=== PATIENT | male | born 1935 | race Caucasian/White ===

== ENCOUNTER 2016-05-07 13:00 | Outpatient (RCR) ==
--- NOTE | 2016-05-02 12:59 | RS.OPPTEV2 ---
Date of Note: 05/01/16 Visit #: 1 Date of Evaluation: 05/01/16 Payer Source: MEDICARE Surgery Performed?: No Treatment Diagnosis: Low back pain, radicular symptoms History of Condition/Mechanism of Injury:: Patient reports back pain for several months. States burning in legs began after having a colonoscopy three months ago. Prior Level of Function.....Patient was independent with: ADL's, Self Care, Caregiving, Ambulation/Mobility, Community Integration/Access Functional Limitations: ADL's, Reaching, Pushing, Pulling, Lifting, Carrying, Sitting, Standing, Bending, Squatting, Ambulation, Community Access/Integration Current Subjective/complaints:: Patient reports back pain and burning into the LE's. States right side of low back is worse. He and states he has fallen a few times in the last few months. He denies tingling or numbness into LE's. He received an injection in the back approximately 1 1/2 weeks ago, which he states helped. Sitting seems to make the pain worse. Walking uphill also increases his back pain. Bending forward while sitting seems to give him some relief. Reports he sleeps well. and patient state that the onset of increased back pain, leg burning, and falls was right after his colonscopy. States he was told the he has one leg shorter. He does not use an assistive device for ambulation. He will be seeing Dr. Armendariz in a few weeks for his back. Medical History Medical History: Hypertension, Diabetes, Arthritis Medical History Comments:: Severe kidney disease Surgical History Comments:: No surgeries Hx Home Medications: Gabapentin, Diovan, Predisone, glimepiride, protonix Patient's Goals: His goal is to get relief of LE burning and back pain. Pain Assessment - Pain Description Pain Location: right low back and LE's. Pain Description: Burning, Aching, Acute Current Pain Intensity: 2/10 Worst Pain Intensity: 6/10 Functional Outcome Measure Oswestry LBP: 38 - G Codes & Severity Modifier G Codes & Modifier: Mobility current CJ. Mobility goal CI Source of G Code score: Oswestry LBP scale Observation - Observation Inspection: Patient presents to the department ambulating independently without an assistive device. Posture: Forward Head, Rounded Shoulders, Decreased Lumbar Lordosis Comments: upper body laterally tilted to his right, right hip higher. In supine, with hips level, left LE is shorter than the right. Gait - Gait Pattern Gait Comments: Pt ambulates without an assistive device with flexed forward posture at hips with right trunk tilt. Right hip externally rotated throughout swing and stance phase. He appears to exhibit exaggerated heel strike and decreased heel-toe transition during stance phase. - ROM Lumbar Flexion: Hand reach to patellae Sidebending to Left: Reach to Mid-thigh Sidebending to Right: Reach to Lateral Joint Line Lumbar Spine ROM Limitations: Soft Tissue Tightness Comments: Lumbar extension to neutral causes increased discomfort in the low back. Lower trunk rotation to the right is WFL's. rotation to the left is more limited. - Strength Trunk Lateral Flexion: 4- Good- Trunk Rotation: 4- Good- Comments: LE strength is 4+ to 5/5 throughout. - Special Tests SLR Test: Negative Left, Negative Right Seated Dural Stretch Test: Negative Left, Negative Right SI Joint Compression: Negative SI Joint Distraction: Negative Palpation Comments:: Patient reports no specific area of tenderness throughout the lumbar spine or paraspinals. Bilateral paraspinals are tight, with moderate increased tone on the right. Demonstrates hypomobility at lumbar spine. Sensation - Sensation Comments: Reports slightly less sensitivity along right lateral thigh. Otherwise sensation is intact. Additional Comments: Additional Comments: SLR bilaterally 50-55 degrees. Gallo test + bilaterally. Right hip flexors tighter than the left. Interventions - Exercise/Activities/Manual Therapy Exercises/Activities: Patient and instructed in left sidelying passive stretch over a pillow or blanket roll to stretch right Quadratus lumborum. Manual Therapy: NA HOME EXERCISE PROGRAM: left sidelying passive stretch over a pillow or blanket roll to stretch right Quadratus lumborum. - Charges Total Direct Minutes: 55 mins Total Treatment Time: 55 mins Procedures billed for this date of service:: [facility] Assessment Assessment: Patient presents to therapy with a diagnosis of Degenerative Disc Disease and Lumbar radiculopathy. He demonstrates several postural deviations and muscle imbalances: tight hip flexors, right quadratus lumborum tighter than left, increased tone of right lumbar paraspinals. He has difficulty tolerating pronlonged walking, standing, or sitting and has had a recent history of falls. He demonstrates an actual leg length discrepancy of the left LE being shorter than the right. He will benefit from exercises to address muscle imbalance to reduce pain in the low back and should also have leg length discrepancy addressed with shoe lift for the left LE. Patient Education: Education of diagnosis, Body/Joint mechanics, Home Exercise Program, Home Safety, Activity Modification, Education of Plan of Care Rehab Potential: Good Short Term Goals Goal #1: Patient independent and compliant with basic HEP. Goal to be met by: 05/16/16 Goal #2: Radiating symptoms localized to the low back. Goal to be met by: 05/16/16 Goal #3: Pt will demonstrate minimal right trunk shift/tilt in sitting or standing. Goal to be met by: 05/16/16 Goal #4: Muscle tone along right lumbar paraspinals decreased to minimal. Goal to be met by: 05/16/16 Principal Software Engineer Goals Goal #1: Pt knows HEP and to continue exercises to maintain functional level at DC. Goal to be met by: 06/06/16 Goal #2: Score on Oswestry scale improved to less than 19% impairment. Goal to be met by: 06/06/16 Goal #3: Pt able to tolerate standing/walking as needed with minimal back pain. Goal to be met by: 06/06/16 Goal #4: Pt to amb. independently with minimal gait deviations with good safety. Goal to be met by: 06/06/16 Plan - Treatment to be Provided Procedures: Therapeutic Exercises, Therapeutic Activity, Gait Training, Neuromuscular Rehab, Manual Therapy, Patient Education Modalities: Electrical Stimulation, Ultrasound/Phonophoresis, Cryotherapy, Hot Packs - Treatment Plan Frequency: 3 X week Duration: 2 weeks ORDER # VISITS AND/OR THROUGH DATE: 06/06/16 - Treatment Code (1) Low back pain Qualifiers: Chronicity: acute Back pain laterality: right Sciatica presence: unspecified whether sciatica present Qualified Description: Acute right- sided low back pain, with sciatica presence unspecified Qualifier Code(s) : (M54.5) Low back pain (2) Lumbar radiculopathy Comments: M54.16 (3) Gait abnormality Comments: R26.9
--- NOTE | 2016-05-02 14:53 | RS.OPPTDN ---
Subjective Date of Note: 05/02/16 Visit #: 2 Date of Evaluation: 05/01/16 Payer Source: MEDICARE Treatment Diagnosis: Low back pain, radicular symptoms Current Subjective/complaints:: Reports no pain at rest,but is present with prolonged standing or walking. Pain Assessment - Pain Description Pain Location: right low back and LE's. Pain Description: Burning, Aching, Acute Current Pain Intensity: 2/10 - Treatment Modality: Electrical Stim Unattended Parameters/Method Applied: 20 mins. high volt,channel 1 @ 155 pv,channel 2 @ 175 pv. to lumbar. Patient Position: Left Sidelying - Heat/Cryotherapy Treatment: Hot Pack (concurrent with e-stim) Interventions - Exercise/Activities/Manual Therapy Exercises/Activities: Patient instructed in left sidelying passive stretch over a pillow or blanket roll to stretch right Quadratus lumborum at last session with PT.Passive stretches in supine by stretching both LE's to the L to reduce R sided lateral trunk session. Total minutes of Exercise: 20 Manual Therapy: NA Total minutes of Manual Therapy: 0 HOME EXERCISE PROGRAM: left sidelying passive stretch over a pillow or blanket roll to stretch right Quadratus lumborum. - Charges Total Direct Minutes: 20 Total Treatment Time: 40 Procedures billed for this date of service:: hp,e-stim,ex 1 Assessment: Tolerates stretches well,did sleep with pillow underneath the L side of trunk/ribs last night .He is attentive to recommendations for posture and HEP.He has decreased heel strike on the R . Patient Education: Education of diagnosis, Body/Joint mechanics, Home Exercise Program, Home Safety, Activity Modification, Education of Plan of Care Patient demonstrates compliance with HEP?: Yes Short Term Goals Goal #1: Patient independent and compliant with basic HEP. Goal to be met by: 05/16/16 Progress towards Goal:: Progressing Goal #2: Radiating symptoms localized to the low back. Goal to be met by: 05/16/16 Goal #3: Pt will demonstrate minimal right trunk shift/tilt in sitting or standing. Goal to be met by: 05/16/16 Goal #4: Muscle tone along right lumbar paraspinals decreased to minimal. Goal to be met by: 05/16/16 Customer Experience Specialist Goals Goal #1: Pt knows HEP and to continue exercises to maintain functional level at [place]. Goal to be met by: 06/06/16 Goal #2: Score on Oswestry scale improved to less than 19% impairment. Goal to be met by: 06/06/16 Goal #3: Pt able to tolerate standing/walking as needed with minimal back pain. Goal to be met by: 06/06/16 Goal #4: Pt to amb. independently with minimal gait deviations with good safety. Goal to be met by: 06/06/16 Plan PLAN OF CARE EXPIRES ON:: 06/06/16 ORDER # VISITS AND/OR THROUGH DATE: 06/06/16 PLAN: Continue Plan of Care
--- NOTE | 2016-05-08 08:17 | RS.OPPTDN ---
Subjective Date of Note: 05/07/16 Visit #: 3 Date of Evaluation: 05/01/16 Payer Source: MEDICARE Treatment Diagnosis: Low back pain, radicular symptoms Current Subjective/complaints:: Reports most of hispain today is in the R hip , instead of his back. Pain Assessment - Pain Description Pain Location: right low back and LE's. Pain Description: Burning, Aching, Acute Current Pain Intensity: 6/10 in R hip - Treatment Modality: Electrical Stim Unattended Parameters/Method Applied: 20 mins. high volt,channel 1 @ 155 pv,channel 2 @ 140 pv to lumbar/R hip. Patient Position: Left Sidelying - Heat/Cryotherapy Treatment: Hot Pack (concurrent with e-stim) Interventions - Exercise/Activities/Manual Therapy Exercises/Activities: 20 mins. in supine for SKTC,DKTC,90/90 hamstring stretches ,R piriformis stretches. Total minutes of Exercise: 20 Manual Therapy: NA Total minutes of Manual Therapy: 0 HOME EXERCISE PROGRAM: left sidelying passive stretch over a pillow or blanket roll to stretch right Quadratus lumborum. - Charges Total Direct Minutes: 20 Total Treatment Time: 40 Procedures billed for this date of service:: hp,e-stim,ex 1 Assessment: Patient reports stretch discomfort only today,no increase in low back pain.He responds well to contract-relax for the R hamstring group. Patient Education: Education of diagnosis, Body/Joint mechanics, Home Exercise Program, Home Safety, Activity Modification, Education of Plan of Care Patient demonstrates compliance with HEP?: Yes Short Term Goals Goal #1: Patient independent and compliant with basic HEP. Goal to be met by: 05/16/16 Progress towards Goal:: Progressing Goal #2: Radiating symptoms localized to the low back. Goal to be met by: 05/16/16 Goal #3: Pt will demonstrate minimal right trunk shift/tilt in sitting or standing. Goal to be met by: 05/16/16 Goal #4: Muscle tone along right lumbar paraspinals decreased to minimal. Goal to be met by: 05/16/16 Mcc Goals Goal #1: Pt knows HEP and to continue exercises to maintain functional level at DC. Goal to be met by: 06/06/16 Progress towards goal: Progressing Goal #2: Score on Oswestry scale improved to less than 19% impairment. Goal to be met by: 06/06/16 Goal #3: Pt able to tolerate standing/walking as needed with minimal back pain. Goal to be met by: 06/06/16 Goal #4: Pt to amb. independently with minimal gait deviations with good safety. Goal to be met by: 06/06/16 Plan PLAN OF CARE EXPIRES ON:: 06/06/16 ORDER # VISITS AND/OR THROUGH DATE: 06/06/16 PLAN: Continue Plan of Care
== END 2016-05-08 ==
PROVIDERS: ATTEND Orthopaedic Surgery
DX: M51.36 Other intervertebral disc degeneration, lumbar region (principal); M54.16 Radiculopathy, lumbar region

== ENCOUNTER 2016-05-16 14:00 | Outpatient (RCR) ==
--- NOTE | 2016-05-09 14:32 | RS.OPPTDN ---
Subjective Date of Note: 05/09/16 Visit #: 4 Date of Evaluation: 05/01/16 Payer Source: MEDICARE Treatment Diagnosis: Low back pain, radicular symptoms Current Subjective/complaints:: Reports no back pain at this time,but does have "hot " sensation in the R hip and lateral thigh. Pain Assessment - Pain Description Pain Location: right low back and LE's. Pain Description: Burning Current Pain Intensity: 0 in back,moderate in R hip /lateral thigh - Heat/Cryotherapy Treatment: Cryotherapy (20 mins. prior to exercises) Interventions - Exercise/Activities/Manual Therapy Exercises/Activities: 30 mins. in supine for SKTC,DKTC,90/90 hamstring stretches ,R piriformis stretches.SI muscle energy exercises of resisted hip flexion,then resisted knee extension in hooklying. Total minutes of Exercise: 30 Manual Therapy: NA Total minutes of Manual Therapy: 0 HOME EXERCISE PROGRAM: left sidelying passive stretch over a pillow or blanket roll to stretch right Quadratus lumborum. - Charges Total Direct Minutes: 30 Total Treatment Time: 50 Procedures billed for this date of service:: cp,ex2 Assessment: Patient has no reports of increased back,hip or R LE pain with stretches.or with SI muscle energy exercises.He continues to have the trunk lean to R ,with R LE externally rotated and exaggerated heel strike on the R.He actually has increased leg length discrepancy that increases after muscle energy exercises. Patient Education: Education of diagnosis, Body/Joint mechanics, Home Exercise Program, Home Safety, Activity Modification, Education of Plan of Care Patient demonstrates compliance with HEP?: Yes Short Term Goals Goal #1: Patient independent and compliant with basic HEP. Goal to be met by: 05/16/16 Progress towards Goal:: Progressing Goal #2: Radiating symptoms localized to the low back. Goal to be met by: 05/16/16 Goal #3: Pt will demonstrate minimal right trunk shift/tilt in sitting or standing. Goal to be met by: 05/16/16 (improved in sitting) Progress towards Goal:: Progressing Goal #4: Muscle tone along right lumbar paraspinals decreased to minimal. Goal to be met by: 05/16/16 Tear Down Worker Goals Goal #1: Pt knows HEP and to continue exercises to maintain functional level at [place]. Goal to be met by: 06/06/16 Progress towards goal: Progressing Goal #2: Score on Oswestry scale improved to less than 19% impairment. Goal to be met by: 06/06/16 Goal #3: Pt able to tolerate standing/walking as needed with minimal back pain. Goal to be met by: 06/06/16 Progress towards goal: Progressing Goal #4: Pt to amb. independently with minimal gait deviations with good safety. Goal to be met by: 06/06/16 Plan PLAN OF CARE EXPIRES ON:: 06/06/16 ORDER # VISITS AND/OR THROUGH DATE: 06/06/16 PLAN: Continue Plan of Care
--- NOTE | 2016-05-11 14:38 | RS.OPPTDN ---
Subjective Date of Note: 05/11/16 Visit #: 5 Date of Evaluation: 05/01/16 Payer Source: MEDICARE Treatment Diagnosis: Low back pain, radicular symptoms Current Subjective/complaints:: Patient reports the therapy is helping,does not have the " hot ,burning "sensation today in his hips or back. Pain Assessment - Pain Description Pain Location: right low back and LE's. Pain Description: Dull, Aching Current Pain Intensity: 0 - Heat/Cryotherapy Treatment: Cryotherapy (20 mins. prior to exercises) Interventions - Exercise/Activities/Manual Therapy Exercises/Activities: 25 mins. in supine for SKTC,DKTC,90/90 hamstring stretches ,R piriformis stretches.SI muscle energy exercises of resisted hip flexion,then resisted knee extension in hooklying.HEP review. Total minutes of Exercise: 25 Manual Therapy: NA Total minutes of Manual Therapy: 0 HOME EXERCISE PROGRAM: left sidelying passive stretch over a pillow or blanket roll to stretch right Quadratus lumborum. - Charges Total Direct Minutes: 25 Total Treatment Time: 45 Procedures billed for this date of service:: cp,ex 2 Assessment: Patient has less pain with standing or sitting,reports sleeping better since beginning therapy.His gait pattern presents the same as eval,but less pain for longer distances.He also reports being able drive to [facility] and back without difficulty(approx. [address] Patient Education: Education of diagnosis, Body/Joint mechanics, Home Exercise Program, Home Safety, Activity Modification, Education of Plan of Care Patient demonstrates compliance with HEP?: Yes Short Term Goals Goal #1: Patient independent and compliant with basic HEP. Goal to be met by: 05/16/16 Progress towards Goal:: Progressing Goal #2: Radiating symptoms localized to the low back. Goal to be met by: 05/16/16 Progress towards Goal:: Progressing Goal #3: Pt will demonstrate minimal right trunk shift/tilt in sitting or standing. Goal to be met by: 05/16/16 (improved in sitting) Progress towards Goal:: Progressing Goal #4: Muscle tone along right lumbar paraspinals decreased to minimal. Goal to be met by: 05/16/16 Mcc Goals Goal #1: Pt knows HEP and to continue exercises to maintain functional level at [place]. Goal to be met by: 06/06/16 Progress towards goal: Progressing Goal #2: Score on Oswestry scale improved to less than 19% impairment. Goal to be met by: 06/06/16 Progress towards goal: Progressing Goal #3: Pt able to tolerate standing/walking as needed with minimal back pain. Goal to be met by: 06/06/16 Progress towards goal: Progressing Goal #4: Pt to amb. independently with minimal gait deviations with good safety. Goal to be met by: 06/06/16 Plan PLAN OF CARE EXPIRES ON:: 06/06/16 ORDER # VISITS AND/OR THROUGH DATE: 06/06/16 PLAN: Continue Plan of Care
--- NOTE | 2016-05-16 15:17 | RS.OPPTDN ---
Subjective Date of Note: 05/16/16 Visit #: 6 Date of Evaluation: 05/01/16 Payer Source: MEDICARE Treatment Diagnosis: Low back pain, radicular symptoms Current Subjective/complaints:: Patient reports he "overdid it" on the weekend.He went Saturday to [facility] injections,feels better today.He feels the therapy is helping ,understands D/C plan today per ordes,but is to see Dr. Armendariz this Saturday,hopes he can get more therapy if appropriate. Pain Assessment - Pain Description Pain Location: right low back and LE's. Pain Description: Dull, Aching Current Pain Intensity: 0 - Treatment Modality: Electrical Stim Unattended Parameters/Method Applied: 20 mins. high volt,channel 1 @ 215 pv,channel 2 @ 225 pv to lumbar. Patient Position: Left Sidelying - Heat/Cryotherapy Treatment: Cryotherapy (concurrent with e-stim) Interventions - Exercise/Activities/Manual Therapy Exercises/Activities: 25 mins. in supine for SKTC,DKTC,90/90 hamstring stretches ,R piriformis stretches.SI muscle energy exercises of resisted hip flexion,then resisted knee extension in hooklying.HEP review. Manual Therapy: NA HOME EXERCISE PROGRAM: left sidelying passive stretch over a pillow or blanket roll to stretch right Quadratus lumborum. - Charges Total Direct Minutes: 0 Total Treatment Time: 20 Procedures billed for this date of service:: cp,e-stim Assessment: Patient 's pain level has been varied for the 6 sessions he attended ,but he has better understanding of posture/body mechanics ,and HEP for stretches and pain relief.He understands D/C plan today,but returns to see Dr. Armendariz this Saturday,agreeable to more therapy if necessary. Patient Education: Education of diagnosis, Body/Joint mechanics, Home Exercise Program, Home Safety, Activity Modification, Education of Plan of Care Patient demonstrates compliance with HEP?: Yes Short Term Goals Goal #1: Patient independent and compliant with basic HEP. Goal to be met by: 05/16/16 Progress towards Goal:: Met Goal #2: Radiating symptoms localized to the low back. Goal to be met by: 05/16/16 Progress towards Goal:: Met Goal #3: Pt will demonstrate minimal right trunk shift/tilt in sitting or standing. Goal to be met by: 05/16/16 (improved in sitting) Progress towards Goal:: Progressing Goal #4: Muscle tone along right lumbar paraspinals decreased to minimal. Goal to be met by: 05/16/16 Detention Goals Goal #1: Pt knows HEP and to continue exercises to maintain functional level at DC. Goal to be met by: 06/06/16 Progress towards goal: Met Goal #2: Score on Oswestry scale improved to less than 19% impairment. Goal to be met by: 06/06/16 (18%) Progress towards goal: Met Goal #3: Pt able to tolerate standing/walking as needed with minimal back pain. Goal to be met by: 06/06/16 Progress towards goal: Partially Met Goal #4: Pt to amb. independently with minimal gait deviations with good safety. Goal to be met by: 06/06/16 (safer,but same deviations.) Progress towards goal: Progressing Plan PLAN OF CARE EXPIRES ON:: 06/06/16 ORDER # VISITS AND/OR THROUGH DATE: 06/06/16 PLAN: Plan for Discharge
--- NOTE | 2016-06-04 10:40 | RS.OPPTDC ---
Date of Discharge: 05/16/16 Date of Evaluation: 05/01/16 Number of Visits: 6 Treatment Diagnosis: Low back pain, radicular symptoms Current Complaints/Gains: Mr. Torres feels therapy is helping. He will see Dr. Armendariz regarding his back and he is hoping that Dr. Armendariz will send him for more therapy. States he has less burning sensation in the right hip and LE. He is sleeping better and able to stand for up to 1/2 hour without increased symptoms. Functional Outcome Measure Oswestry LBP: 18 - G Codes & Severity Modifier G Codes & Modifier: Mobility goal CI. Mobility D/C CI Source of G Code score: Oswestry LBP Gait - Gait Pattern Gait Comments: Patient continues to demonstrate significant gait/postural deviations in standing and while ambulating. Interventions - Exercise/Activities/Manual Therapy Exercises/Activities: NA Manual Therapy: NA HOME EXERCISE PROGRAM: left sidelying passive stretch over a pillow or blanket roll to stretch right Quadratus lumborum. - Objective Findings Observations,measurements,etc.: Gait pattern appears to be the same as day of evaluation. Demonstrates several postural deviations. - Charges Total Direct Minutes: NA Total Treatment Time: NA Procedures billed for this date of service:: NA Assessment Assessment: Mr. Torres reports less right LE burning pain. Functionally, he is able to stand for 1/2 hour without increased symptoms. He feels therapy has been very beneficial and his is hoping Dr. Armendariz will have him continue. Short Term Goals Goal #1: Patient independent and compliant with basic HEP. Goal to be met by: 05/16/16 Progress towards Goal:: Met Goal #2: Radiating symptoms localized to the low back. Goal to be met by: 05/16/16 Progress towards Goal:: Met Goal #3: Pt will demonstrate minimal right trunk shift/tilt in sitting or standing. Goal to be met by: 05/16/16 (improved in sitting) Progress towards Goal:: Not Met Goal #4: Muscle tone along right lumbar paraspinals decreased to minimal. Goal to be met by: 05/16/16 Progress towards Goal:: Not Met Senior Care Goals Goal #1: Pt knows HEP and to continue exercises to maintain functional level at DC. Goal to be met by: 06/06/16 Progress towards goal: Met Goal #2: Score on Oswestry scale improved to less than 19% impairment. Goal to be met by: 06/06/16 (18%) Progress towards goal: Met Goal #3: Pt able to tolerate standing/walking as needed with minimal back pain. Goal to be met by: 06/06/16 Progress towards goal: Partially Met Goal #4: Pt to amb. independently with minimal gait deviations with good safety. Goal to be met by: 06/06/16 (safer,but same deviations.) Progress towards goal: Not Met Plan Comments: Plan of care complete and patient seeing back specialist next week. Will await further orders to continue therapy.
== END 2016-06-08 ==
PROVIDERS: ATTEND Orthopaedic Surgery
DX: M51.36 Other intervertebral disc degeneration, lumbar region (principal); M54.16 Radiculopathy, lumbar region

== ENCOUNTER 2016-09-13 12:17 | Outpatient (CLI) | END 2016-09-13 12:18 | disposition short-term general hospital (02) | LOC: AMBL 12:17 | PROVIDERS: ATTEND Internal Medicine | DX: M25.551 Pain in right hip (principal); M79.604 Pain in right leg; W19.XXXA Unspecified fall, initial encounter ==

== ENCOUNTER 2016-09-22 07:58 | Outpatient (CLI) | payer OTHER ==
[2016-09-22 11:41] VITALS: BMI 26.7
== END 2016-09-22 07:59 | disposition home or self-care (01) ==
LOC: AMBL 07:58
PROVIDERS: ATTEND Internal Medicine
DX: M79.89 Other specified soft tissue disorders (principal); L53.9 Erythematous condition, unspecified; M79.631 Pain in right forearm

== ENCOUNTER 2016-09-22 08:11 | Inpatient (IN) | payer OTHER ==
[2016-09-22] MEDS ORDERED: ROCEPHIN 1 GM in SODIUM CHLORIDE 50 ML IV STA (08:39)
[2016-09-22 08:58] LABS: BASOPHILS % (AUTO) 0.1 % (0.0-3.0); EOSINOPHILS % (AUTO) 0.3 % (0.0-7.0); HEMATOCRIT 36.8 % (42.0-52.0); HEMOGLOBIN 12.6 g/dl (14.0-18.0); IMMATURE GRANULOCYTE % (AUTO) 1.1 % (0.0-5.0); LYMPHOCYTES # (AUTO) 0.8 K/uL (0.60-3.4); LYMPHOCYTES % (AUTO) 7.4 (10.0-50.0); MEAN CORPUSCULAR HEMOGLOBIN 32.8 pg (27.0-31.0); MEAN CORPUSCULAR HGB CONC 34.2 (31.8-35.4); MEAN CORPUSCULAR VOLUME 95.8 fl (80.0-94.0); MONOCYTES # (AUTO) 0.4 K/uL (0.4-2.0); MONOCYTES % (AUTO) 3.5 (0-10); NEUTROPHILS # (AUTO) 9.4 K/ul (2.0-6.9); NEUTROPHILS % (AUTO) 87.6; PLATELET COUNT 202 10^3/uL (140-440); RED BLOOD COUNT 3.84 10^6/ul (4.70-6.10); WHITE BLOOD COUNT 10.76 K/ul (4.2-10.2)
--- NOTE | 2016-09-22 09:13 | DI ---
EXAM: CHEST FRONTAL VIEW HISTORY: Cough. COMPARISON: None FINDINGS: Heart size upper limit normal. Ectasia of the aorta. Chronic-appearing interstitial karina nges. Mild density in the bases more noticeable on the right. No visible pleural fluid or pneumoth orax. IMPRESSION: Mild bibasilar density, more noticeable on the right may represent atelectasis, fibrosis or mild pne umonia.
[2016-09-22 09:16] LABS: ALBUMIN 2.8 g/dL (3.4-5.0); ALBUMIN/GLOBULIN RATIO 0.85; ANION GAP 15.3; BILIRUBIN,TOTAL 0.58 mg/dL (0.00-1.20); BUN/CREATININE RATIO 21.49; CALCIUM 8.1 mg/dL (8.2-10.2); CREATININE 1.07 mg/dL (0.60-1.10); POTASSIUM 3.3 mmol/L (3.5-5.1); TOTAL PROTEIN 6.1 g/dL (5.8-8.1)
[2016-09-22] MEDS ORDERED: ROCEPHIN ONE (10:14)
--- NOTE | 2016-09-22 10:17 | ED.PDOC ---
Procedures - IV/Art Line Insertion Location: lt wrist Type of Line: Peripheral IV Invasive Line/IV Catheter Gauge: 24 Number of Attempts: 1 Blood Return Positive: Yes Invasive Line/IV Flushes Without Difficulty: Yes Conscious Sedation - Pre-op Assessment Weight: 200 lb - Medical History Past Medical History: Hypertension, Diabetes, High Lipids, Kidney Disease, Anxiety, Arthritis Other History: dementia, barretts esophagus - Physical Exam Heart Rate/Rhythm: Regular Rhythm, Regular Rate
--- NOTE | 2016-09-22 10:22 | ED.PDOC ---
General ED Provider: Dr. JAMEL RIVERA Chief Complaint: Cellulitis Stated Complaint: cellulitis Time Seen by Physician: 08:14 Mode of Arrival: Ambulance Information Source: Patient, Snf, EMT Exam Limitations: No limitations Primary Care Provider: GUILLERMINA THORPE Nursing and Triage Documentation Reviewed and Agree: Yes ( was admitted at [facility] for back pain returns for aforearm cellulitis righ) Skin Complaint Exam - Skin/Soft Tissue Complaint/Exam Onset/Duration: had and iv placed at [facility] now apperas cellulitic see photos Symptoms Are: Still present Timing: Constant Initial Severity: Moderate Current Severity: Moderate Character: Reports: Swelling, Raised, Painful Aggravating: Reports: Touch Alleviating: Reports: None Associated Signs and Symptoms: Reports: Tenderness, Red streaks. Denies: Fever , Chills, Itching, Drainage, Bruising, Joint swelling Recent Exposure to Others w/Similar Symptoms: No Skin Findings: Present: Erythema Joint Tenderness Present: No Differential Diagnoses: Cellulitis Review of Systems - Review Of Systems Constitutional: Reports: No symptoms Eyes: Reports: No symptoms Ears, Nose, Mouth, Throat: Reports: No symptoms Respiratory: Reports: No symptoms Cardiac: Reports: No symptoms GI: Reports: No symptoms : Reports: No symptoms Musculoskeletal: Reports: No symptoms Skin: Reports: Rash (see photos) Neurological: Reports: No symptoms Endocrine: Reports: No symptoms Hematologic/Lymphatic: Reports: No symptoms All Other Systems: Reviewed and Negative Past Medical History - Past Medical History Previously Healthy: Yes Endocrine: Reports: DM 2, Dyslipidemia Cardiovascular: Reports: Hypertension Respiratory: Reports: None Hematological: Reports: None Gastrointestinal: Reports: None Genitourinary: Reports: CKD Neuro/Psych: Reports: None Musculoskeletal: Reports: None 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: Skin - Surgical History General Surgical History: Reports: None, Other (throid surgery ) - Family History Family History: Reports: None - Social History Smoking Status: Unknown if ever smoked Hx Substance Use: No Alcohol Screening: None Physical Exam - Physical Exam Appearance: Ill-appearing Ill-appearing: Moderate Pain Distress: Moderate Eyes: CATHERINE, EOMI, Conjunctiva clear ENT: Ears normal, Nose normal, Oropharynx normal Respiratory: Airway patent, Breath sounds clear, Breath sounds equal, Respirations nonlabored Cardiovascular: RRR, Pulses normal, No rub, No murmur GI/: Soft, Nontender, No masses, Bowel sounds normal, No Organomegaly Musculoskeletal: Normal strength, ROM intact, No edema, No calf tenderness Skin: Warm, Dry (cellulitis right upper arm) Neurological: Sensation intact, Motor intact, Reflexes intact, Cranial nerves intact, Alert, Oriented Psychiatric: Affect appropriate, Mood appropriate Interpretation - Finish Filer Rate: Normal Rhythm: Sinus Ectopy: None Physician Notification - Case Discussed Physician Notified: pmd Time of Notification: 09:00 (saw pt and he would like pt admitted to his service ) Admit To: Inpatient Critical Care Note - Critical Care Note Total Time (mins): 0 Course - Course Hematology/Chemistry: 09/22/16 08:45 09/22/16 08:45 Orders, Labs, Meds: Lab Review 09/22/16 08:45 WBC 10.76 H RBC 3.84 L Hgb 12.6 L Hct 36.8 L MCV 95.8 H MCH 32.8 H MCHC 34.2 RDW Coeff of Quiana 13.7 Plt Count 202 Immature Gran % (Auto) 1.1 Neut % (Auto) 87.6 Lymph % (Auto) 7.4 L Metcalfe % (Auto) 3.5 Eos % (Auto) 0.3 Baso % (Auto) 0.1 Immature Gran # (Auto) 0.1 Neut # 9.4 H Lymph # 0.8 Metcalfe # 0.4 Eos # 0.0 Baso # 0.0 Sodium 142 Potassium 3.3 L Chloride 105 Carbon Dioxide 25 Anion Gap 15.3 BUN 23 H Creatinine 1.07 Estimated GFR (MDRD) 66.00 BUN/Creatinine Ratio 21.49 Glucose 123 H Lactic Acid 14.0 Calcium 8.1 L Total Bilirubin 0.58 AST 31 ALT 41 Alkaline Phosphatase 101 Total Protein 6.1 Albumin 2.8 L Globulin 3.3 Albumin/Globulin Ratio 0.85 Procalcitonin 0.11 Orders Category Date Time Status EKG-(ED ONLY) Stat CARDIO 09/22/16 08:36 Completed ED IV/MEDIPORT/POWERPORT .ONCE EMERGENCY 09/22/16 08:39 Active BLOOD CULTURE Stat LAB 09/22/16 08:45 Received CBC W/ AUTO DIFF Stat LAB 09/22/16 08:45 Completed COMPREHENSIVE METABOLIC PANEL Stat LAB 09/22/16 08:45 Completed LACTIC ACID Stat LAB 09/22/16 08:45 Completed PROCALCITONIN Stat LAB 09/22/16 08:45 Completed WOUND CULTURE Stat LAB 09/22/16 08:25 Received 0.9 % Sodium Chloride [Saline Flush] MEDS 09/22/16 08:39 Active 1 syr IVF PRN PRN Ceftriaxone Sodium [Rocephin] MEDS 09/22/16 10:14 Discontinued 1 gm .ROUTE .STK-MED ONE Ceftriaxone Sodium [Rocephin] 1 gm MEDS 09/22/16 08:39 Discontinued 0.9 % Sodium Chloride [Sodium Chloride] 50 ml IV ONCE CHEST, 1V AP ONLY Stat RADS 09/22/16 08:36 Completed Medications Generic Name Dose Route Start Last Admin Trade Name Freq PRN Reason Stop Dose Admin Sodium Chloride 1 syr 09/22/16 08:39 Saline Flush IVF PRN PRN To flush IV Discontinued Medications Generic Name Dose Route Start Last Admin Trade Name Freq PRN Reason Stop Dose Admin Ceftriaxone Sodium 1 gm/ 50 mls @ 75 mls/hr 09/22/16 08:39 Sodium Chloride IV 09/22/16 09:18 ONCE STA Vital Signs: Temp Pulse Resp BP Pulse Ox 09/22/16 08:14 98.4 F 85 20 126/75 97 Departure - Departure Time of Disposition: 10:22 Disposition: ADMITTED INPATIENT Discharge Problem: Cellulitis Instructions: Cellulitis (ED) Condition: Good Pt referred to PMD for follow-up: Yes (admitt now) Allergies/Adverse Reactions: Allergies amlodipine [From Norvasc] Adverse Reaction (Verified 09/22/16 08:54) clonidine Adverse Reaction (Verified 09/22/16 08:54) enalaprilat [From Vasotec] Adverse Reaction (Verified 09/22/16 08:54) erythromycin base [From E-Mycin] Adverse Reaction (Verified 09/22/16 08:54) Home Medications: Ambulatory Orders Calcium Carbonate/Vitamin D3 [Calcium 600 + Vit D 400 Tablet] 1 each PO DAILY Carisoprodol [Soma] 350 mg PO QID 09/22/16 Cephalexin [Keflex] 500 mg PO TID 09/22/16 Cholecalciferol (Vitamin D3) [Vitamin D] 1,000 unit PO DAILY 09/22/16 Collagenase Clostridium Hist [Santyl] 1 applic TP BID 09/22/16 Enoxaparin Sodium [Lovenox] 40 mg SQ DAILY 09/22/16 Fentanyl 12 Mcg/Hr [Duragesic 12 Mcg/Hr] 1 patch TD Q72HR 09/22/16 Gabapentin [Neurontin] 300 mg PO TID 09/22/16 Glimepiride [Amaryl] 4 mg PO DAILY 09/22/16 Hydralazine HCl 25 mg PO TID 09/22/16 Insulin Lispro [Humalog] See Protocol SUBCUT QID 09/22/16 Latanoprost [Xalatan] 1 drop OP BEDTIME 09/22/16 Levocetirizine Dihydrochloride [Xyzal] 5 mg PO DAILY 09/22/16 Lorazepam Inj [Ativan] 0.5 mg IM Q6H 09/22/16 Mupirocin [Bactroban] 1 applic TP BID 09/22/16 Nebivolol HCl [Bystolic] 10 mg PO DAILY 09/22/16 Nystatin [Nystatin Cream] 1 applic TP DAILY 09/22/16 Boon-3 Fatty Acids/Fish Oil [Fish Oil 1,000 mg Capsule] 1 each PO DAILY Oxycodone-Acetaminophe 7.5-325 [Percocet 7.5-325] 1 tab PO Q6H PRN 09/22/16 Pantoprazole Sodium [Protonix] 40 mg PO QDAC 09/22/16 Pravastatin Sodium [Pravachol] 20 mg PO BEDTIME 09/22/16 Prednisone 10 mg PO DAILYWM 09/22/16 Timolol Maleate 0.5% [Timoptic 0.5% Opth] 2 drop OP BID 09/22/16 Valsartan [Diovan] 160 mg PO DAILY 09/22/16
[2016-09-22] MEDS ORDERED: VANCOMYCIN 1 GM in SODIUM CHLORIDE 250 ML IV STA (10:31)
[2016-09-22 11:41] VITALS: BMI 26.7
[2016-09-22] MEDS: SODIUM CHLORIDE 1,000 ML IV SCH (11:51)
[2016-09-22] MEDS: ATIVAN IM PRN (12:04)
[2016-09-22] MEDS ORDERED: SOMA PO PRN (12:21)
[2016-09-22] MEDS ORDERED: PERCOCET 7.5-325 ONE ×2 (12:30→20:35)
[2016-09-22] MEDS: PERCOCET 7.5-325 PO SCH ×2 (12:33→20:41)
[2016-09-22] MEDS: SOMA PO SCH ×3 (12:33→20:41)
[2016-09-22] MEDS ORDERED: NEURONTIN PO SCH (15:00)
[2016-09-22] MEDS ORDERED: NON-FORMULARY MEDICATION (Hydralazine Hcl [Hydralazine Hcl] 25 MG) PO SCH (15:00)
[2016-09-22] MEDS: APRESOLINE PO SCH ×2 (17:26→20:40)
[2016-09-22] MEDS ORDERED: TORADOL IVP STA (18:13)
[2016-09-22] MEDS ORDERED: TORADOL IVP PRN (18:14)
[2016-09-22] MEDS ORDERED: DECADRON 4 MG/ML SDV IVP STA (18:15)
[2016-09-22] MEDS: XALATAN OP SCH (20:39)
[2016-09-22] MEDS: TIMOPTIC 0.5% OPTH OP SCH (20:39)
[2016-09-22] MEDS: PRAVACHOL PO SCH (20:40)
[2016-09-23] MEDS: SODIUM CHLORIDE 1,000 ML IV SCH ×2 (02:23→19:18)
[2016-09-23] MEDS ORDERED: PERCOCET 7.5-325 ONE (05:20)
[2016-09-23] MEDS: PERCOCET 7.5-325 PO SCH ×3 (05:22→20:03)
[2016-09-23] MEDS: HUMULIN R SUBCUT PRN ×3 (05:32→17:10)
[2016-09-23 07:24] LABS: BASOPHILS % (AUTO) 0.1 % (0.0-3.0); EOSINOPHILS % (AUTO) 0.2 % (0.0-7.0); HEMATOCRIT 32.7 % (42.0-52.0); HEMOGLOBIN 11.1 g/dl (14.0-18.0); IMMATURE GRANULOCYTE % (AUTO) 1.3 % (0.0-5.0); LYMPHOCYTES # (AUTO) 0.7 K/uL (0.60-3.4); MEAN CORPUSCULAR HEMOGLOBIN 32.6 pg (27.0-31.0); MEAN CORPUSCULAR HGB CONC 33.9 (31.8-35.4); MEAN CORPUSCULAR VOLUME 95.9 fl (80.0-94.0); MONOCYTES # (AUTO) 0.3 K/uL (0.4-2.0); MONOCYTES % (AUTO) 3.2 (0-10); NEUTROPHILS # (AUTO) 7.9 K/ul (2.0-6.9); NEUTROPHILS % (AUTO) 87.2; PLATELET COUNT 180 10^3/uL (140-440); RED BLOOD COUNT 3.41 10^6/ul (4.70-6.10); WHITE BLOOD COUNT 9.07 K/ul (4.2-10.2)
[2016-09-23 08:11] LABS: ALBUMIN 2.2 g/dL (3.4-5.0); ALBUMIN/GLOBULIN RATIO 0.76; ANION GAP 16.6; BILIRUBIN,TOTAL 0.46 mg/dL (0.00-1.20); BUN/CREATININE RATIO 18.27; CREATININE 0.93 mg/dL (0.60-1.10); POTASSIUM 3.6 mmol/L (3.5-5.1); TOTAL PROTEIN 5.1 g/dL (5.8-8.1)
[2016-09-23] MEDS: SOMA PO SCH ×3 (08:34→20:03)
[2016-09-23] MEDS: TIMOPTIC 0.5% OPTH OP SCH ×2 (08:34→20:04)
[2016-09-23] MEDS: LOVENOX SUBCUT SCH (08:35)
[2016-09-23] MEDS: NYSTATIN CREAM TP SCH (08:35)
[2016-09-23] MEDS: BYSTOLIC PO SCH (08:36)
[2016-09-23] MEDS: PREDNISONE PO SCH (08:36)
[2016-09-23] MEDS: CLARITIN PO SCH (08:36)
[2016-09-23] MEDS: APRESOLINE PO SCH ×3 (08:36→20:03)
[2016-09-23] MEDS: DIOVAN PO SCH (08:36)
[2016-09-23] MEDS ORDERED: LEVOCETIRIZINE DIHYDROCHLORIDE 5 MG PO SCH ×22 (09:00)
[2016-09-23] MEDS ORDERED: NON-FORMULARY MEDICATION (Nebivolol Hcl [Bystolic] 10 MG) PO SCH ×22 (09:00)
[2016-09-23] MEDS: VANCOMYCIN 750 MG in SODIUM CHLORIDE 250 ML IV SCH ×2 (10:17→20:04)
[2016-09-23] MEDS: ROCEPHIN 1 GM in SODIUM CHLORIDE 50 ML IV SCH (12:17)
[2016-09-23] MEDS: PRAVACHOL PO SCH (20:03)
[2016-09-23] MEDS: XALATAN OP SCH (20:04)
[2016-09-23] MEDS: ATIVAN IM PRN (20:25)
[2016-09-24] MEDS: ATIVAN IM PRN ×2 (03:02→09:15)
[2016-09-24] MEDS: PERCOCET 7.5-325 PO SCH ×3 (04:44→20:49)
[2016-09-24 05:29] LABS: EOSINOPHILS % (AUTO) 0.5 % (0.0-7.0); HEMATOCRIT 31.4 % (42.0-52.0); HEMOGLOBIN 10.7 g/dl (14.0-18.0); IMMATURE GRANULOCYTE % (AUTO) 1.9 % (0.0-5.0); LYMPHOCYTES # (AUTO) 0.8 K/uL (0.60-3.4); LYMPHOCYTES % (AUTO) 10.1 (10.0-50.0); MEAN CORPUSCULAR HEMOGLOBIN 32.4 pg (27.0-31.0); MEAN CORPUSCULAR HGB CONC 34.1 (31.8-35.4); MEAN CORPUSCULAR VOLUME 95.2 fl (80.0-94.0); MONOCYTES # (AUTO) 0.4 K/uL (0.4-2.0); MONOCYTES % (AUTO) 4.7 (0-10); NEUTROPHILS # (AUTO) 6.5 K/ul (2.0-6.9); NEUTROPHILS % (AUTO) 82.8; PLATELET COUNT 200 10^3/uL (140-440); WHITE BLOOD COUNT 7.89 K/ul (4.2-10.2)
[2016-09-24 05:55] LABS: ALBUMIN 2.3 g/dL (3.4-5.0); ALBUMIN/GLOBULIN RATIO 0.82; ANION GAP 14.1; BILIRUBIN,TOTAL 0.33 mg/dL (0.00-1.20); BUN/CREATININE RATIO 20.87; CREATININE 0.91 mg/dL (0.60-1.10); POTASSIUM 3.1 mmol/L (3.5-5.1); TOTAL PROTEIN 5.1 g/dL (5.8-8.1)
[2016-09-24] MEDS ORDERED: TORADOL IVP PRN (07:38)
[2016-09-24] MEDS ORDERED: DURAGESIC TD SCH (09:00)
[2016-09-24] MEDS: NYSTATIN CREAM TP SCH (09:00)
[2016-09-24] MEDS: LOVENOX SUBCUT SCH (09:09)
[2016-09-24] MEDS: ROCEPHIN 1 GM in SODIUM CHLORIDE 50 ML IV SCH (09:09)
[2016-09-24] MEDS: BYSTOLIC PO SCH (09:10)
[2016-09-24] MEDS: APRESOLINE PO SCH ×4 (09:11→20:48)
[2016-09-24] MEDS: DIOVAN PO SCH (09:11)
[2016-09-24] MEDS: PREDNISONE PO SCH (09:11)
[2016-09-24] MEDS: NAMENDA PO SCH ×2 (09:12→20:47)
[2016-09-24] MEDS: CLARITIN PO SCH (09:12)
[2016-09-24] MEDS: SOMA PO SCH ×4 (09:12→20:47)
[2016-09-24] MEDS: K-DUR PO SCH ×2 (09:13→20:47)
[2016-09-24] MEDS: TIMOPTIC 0.5% OPTH OP SCH ×2 (09:13→20:49)
[2016-09-24] MEDS: BACTROBAN TP SCH ×2 (09:14→20:50)
--- NOTE | 2016-09-24 09:52 | HP ---
DATE OF SERVICE: 09/22/16 REASON FOR HOSPITALIZATION: Cellulitis of the right arm HISTORY OF PRESENT ILLNESS: The patient is an 81 year old white male hospitalized with upper facial abrasion with redness of the right arm near the elbow area radially. The patient has been treated with Keflex in the [facility]odial for practically 12 to 24 hours. Inflammation seems to have worsened so the patient was brought to the emergency room by family. The patient is resident of the [facility]. REVIEW OF SYSTEMS: CONSTITUTIONAL: No night sweats. Fatigue and tired. No fever or chills. HEENT: Eyes: No visual changes. No eye pain. No eye discharge. ENT: No runny nose. No epistaxis. No sinus pain. No sore throat. No odynophagia. No ear pain. No congestion. RESPIRATORY: No cough, no congestion. No hemoptysis. CARDIOVASCULAR: No angina symptoms. No CHF symptoms. No atypical chest pain for CAD. No palpitations. No shortness of breath. No PND. No Orthopnea. GASTROINTESTINAL: No abdominal pain. No nausea or vomiting. No diarrhea or constipation. No hematemesis. No hematochezia. GENITOURINARY: No urgency. No frequency. No dysuria. No hematuria. No obstructive symptoms. No discharge. No pain. No significant abnormal bleeding. MUSCULOSKELETAL: No musculoskeletal pain. No joint swelling. No arthritis. Generalized aches with spinal cord compression with severe DJD of the lumbar spine. Mild pain in the right upper extremity. NEUROLOGICAL: No headache. No neck pain. No syncope. No seizures. No dizziness. Confused at times. Dementia. No focal neurological signs or symptoms. PSYCHIATRIC: Not anxious. No depression. No suicidal thoughts. No homicidal thoughts. SKIN: No rash. No lesions. No wounds. ENDOCRINE: No unexplained weight loss. No weight gain. HEMATOLOGIC/LYMPHATIC: No anemia. No purpura. No petechiae. No prolonged or excessive bleeding. No palpable lymph nodes. PERSONAL/FAMILY/SOCIAL HISTORY: The patient is and the is also handicap with multiple medical problems and unable to take care of him. The patient was sent from [facility] to [place] after his frequent falls and worsening of Dementia along with DJD spine with radiculopathy with urinary incontinence and dementia. The patient needs help for all activity of daily living. He is non- smoker and no alcohol abuse. Daughters and a Son are the main participants in patient's care. When I examined the patient in the emergency room two daughters and they agreed for the patient to be taken care of at [facility]. 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 Lindsay. 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 Hyperlipidemia Hypertension Hypothyroidism Type II diabetes without complication Urinary incontinence could be from radiculopathy or could be from dementia and BPH Colonoscopy EGD Eye surgery MEDICATIONS: Soma 350mg four times a day Keflex 500mg three times a day Lovenox 40mg SUBCUT daily Fentanyl 12mcg per hour patch every 72 hour Neurontin 300mg three times a day Amaryl 4mg PO daily Hydralazine 25mg PO three times a day Humalog to cover per sliding scale Eye drops Ativan 0.5mg IM Q 6 hours Bactroban three times a day Bystolic 10mg PO daily Nystatin cream on the skin area Percocet 7.5-325mg Q 6 hour PRN for pain Protonix 40mg QAM Pravastatin 40mg PO at bedtime Prednisone 10mg PO daily Diovan 160mg PO daily ALLERGIES: Amlodipine Clonidine Vasotec Erythromycin PHYSICAL EXAMINATION: GENERAL: The patient is sleepy and response to name. VITAL SIGNS: Temperature 98.1, pulse 90, respiratory rate 16, blood pressure 126/75 and pulse ox 97% HEENT: Head normocephalic, atraumatic. Eyes: Extraocular muscles are intact. Pupils are equal, round and reactive to light and accommodation. Ears: No lesions. Nose appeared normal. Throat: No exudate or erythema. NECK: Supple. No JVP, no carotid bruit. No lymphadenopathy or thyromegaly. LUNGS:Decreased breath sounds but clear to auscultation. Percussion note normal. Chest symmetrical. HEART: S1, S2, no S3. No murmurs. No cyanosis or clubbing. No ascites. Pulses: Dorsalis pedis and posterior tibial pulses +1 to +2 both sides. ABDOMEN: Soft. Nontender. Bowel sounds active. No CVA tenderness. No mass felt. EXTREMITIES: No edema. Full range of motion of all extremities, equal. Relatively superficial grade II ulcer. Multiple small ulcerations superficial noted especially in the right upper extremity. There is superficial ulcer medially oblong 1.5inch by an inch superficial ulcer with some drainage, mild drainage surrounding areas, streaks noted. Tissues is lax and edematous in the right upper extremity. NEUROLOGIC: No focal deficit. Cranial nerves II through XII are grossly intact. No headache, no double vision or headache. SKIN: Not dry. Intact. Turgor - normal. LYMPHATIC: No palpable lymph nodes/no lymphedema. MUSCULOSKELETAL: Normal joints with no swelling. Muscle tone is normal. LABS: Hgb 12.6, hct 36, WBC 10,700 normal differential, creatinine 1, BUN 23, potassium 3.3. ASSESSMENT: 1. Mild Cellulitis with right upper extremity small superficial ulcer 2. Dementia with Alzheimer's disease 3. Multiple falls with severe DJD of the L spine with possibility of cord compression 4. Hypertension 5. Dyslipidemia 6. Anemia 7. Agitation with behavioral disorder with dementia 8. Diabetes Mellitus type II PLAN: 1. Admit the patient with Right upper extremity elevation 2. Clean the ulcer with hydroperoxide and keep it open to air 3. Rocephin 1 gram IV Q 24 hours 4. Vancomycin 1gram Q 12 hour 5. Daily CBC and CMP 6. T4 and TSH 7. Lipid profile 8. A1c 9. Discontinue Amaryl 10.Chest x-ray and EKG CONDITION: Stable, case discussed with the family and discussed the care plan ADDENDUM: Some of the records from [facility] especially Dr. Turner notes that are available examine. The patient was seen by Dr. Armendariz and followed by Dr. Leger. Dr. Armendariz felt that the surgery was necessary and the symptoms were coming from possibly cord compression by Dr. Turner thought the cord compression was multifactorial at some of component of dementia and inactivity. The overall condition of the patient, the family along the physician's have decided not have the patient go through any surgery and treat conservatively. Primary care physician was Concetta Olvera. TIME SPENT: More than 70 minutes. [facility]ITALThere[facility]
--- NOTE | 2016-09-24 10:07 | PCM.PROG ---
Attending Provider: ATTENDING PROVIDER: Dr. GUILLERMINA THORPE DATE OF SERVICE: 09/24/16 SUBJECTIVE: This 81 year old WHITE/ M was hospitalized 09/22/16. The patient is seen with Leann, Nurse Practitioner. The patient is alert, lying in bed in some pain. REVIEW OF SYSTEMS: CONSTITUTIONAL: No night sweats. No fatigue, malaise, lethargy. No fever or chills. HEENT: Eyes: No visual changes. No eye pain. No eye discharge. ENT: No runny nose. No epistaxis. No sinus pain. No odynophagia. No congestion. RESPIRATORY: No cough, no congestion. No hemoptysis. CARDIOVASCULAR: No angina symptoms. No CHF symptoms. No atypical chest pain for CAD. No palpitations. No shortness of breath. GASTROINTESTINAL: No abdominal pain. No nausea or vomiting. No diarrhea or constipation. No hematemesis. No hematochezia. GENITOURINARY: No urgency. No frequency. No dysuria. No hematuria. No obstructive symptoms. No discharge. No pain. No significant abnormal bleeding. MUSCULOSKELETAL: The patient has some pain. NEUROLOGICAL: Awake, alert. No headache. No neck pain. No syncope. No seizures. No dizziness. PSYCHIATRIC: Not anxious. No depression. No suicidal thoughts. No homicidal thoughts. SKIN: Redness to right elbow. Wound left heel. ENDOCRINE: No unexplained weight loss. No weight gain. HEMATOLOGIC/LYMPHATIC: No anemia. No purpura. No petechiae. No prolonged or excessive bleeding. No palpable lymph nodes. PHYSICAL EXAMINATION: GENERAL: The patient is awake, alert lying in bed in some pain. VITAL SIGNS: Temperature 98.3 F, Pulse 73, Respiratory Rate 20, BP 164/81, Pulse Ox 92% HEENT: Head normocephalic, atraumatic. Eyes: Extraocular muscles are intact. Pupils are equal, round and reactive to light and accommodation. Ears: No lesions. Nose appeared normal. Throat: No exudate or erythema. NECK: Supple. No JVD, no carotid bruit. No lymphadenopathy or thyromegaly. LUNGS: Clear; equally diminished breath sounds. Percussion note normal. Chest symmetrical. HEART: S1, S2, no S3. No murmurs. No cyanosis or clubbing. No ascites. Pulses: Dorsalis pedis and posterior tibial pulses +1 to +2 both sides. ABDOMEN: Soft. Non-tender. Bowel sounds active. No CVA tenderness. No mass felt. EXTREMITIES: No edema. Full range of motion of all extremities, equal. NEUROLOGIC: No focal deficit. Cranial nerves II through XII are grossly intact. No headache, no double vision or headache. SKIN: Improved erythema inner right elbow, no drainage. Stage 2 decubitus left heel. LYMPHATIC: No palpable lymph nodes/no lymphedema. MUSCULOSKELETAL: Normal joints with no swelling. Muscle tone is normal. LAB REVIEW: 09/24/16 05:00 09/24/16 05:00 09/24/16 05:00: WBC 7.89, RBC 3.30 L, Hgb 10.7 L, Hct 31.4 L, MCV 95.2 H, MCH 32.4 H, MCHC 34.1, RDW Coeff of Quiana 13.3, Plt Count 200, Immature Gran % (Auto) 1.9, Neut % (Auto) 82.8, Lymph % (Auto) 10.1, [place] % (Auto) 4.7, Eos % (Auto) 0.5, Baso % (Auto) 0.0, Immature Gran # (Auto) 0.2, Neut # 6.5, Lymph # 0.8, [place] # 0.4, Eos # 0.0, Baso # 0.0, Sodium 141, Potassium 3.1 L, Chloride 108 H, Carbon Dioxide 22 L, Anion Gap 14.1, BUN 19 H, Creatinine 0.91, Estimated GFR ( MDRD) 80.00, BUN/Creatinine Ratio 20.87, Glucose 97, Calcium 8.0 L, Total Bilirubin 0.33, AST 39 H, ALT 42, Alkaline Phosphatase 79, Total Protein 5.1 L, Albumin 2.3 L, Globulin 2.8, Albumin/Globulin Ratio 0.82 09/23/16 07:15: Sodium 139, Potassium 3.6, Chloride 105, Carbon Dioxide 21 L, Anion Gap 16.6, BUN 17, Creatinine 0.93, Estimated GFR (MDRD) 78.00, BUN/ Creatinine Ratio 18.27, Glucose 117 H, Calcium 8.0 L, Total Bilirubin 0.46, AST 29, ALT 33, Alkaline Phosphatase 80, Total Protein 5.1 L, Albumin 2.2 L, Globulin 2.9, Albumin/Globulin Ratio 0.76, Triglycerides 149, Cholesterol 139, LDL Cholesterol, Calc 74, VLDL Cholesterol 30, HDL Cholesterol 35, Cholesterol/ HDL Ratio 4.0 L, TSH 0.589 ASSESSMENT: 1. Positive MRSA, right elbow cellulitis 2. Decubitus left heel. 3. Dementia. 4. Hypokalemia. PLAN: 1. Apply Bactroban to right elbow 2. Up in chair as tolerated 3. Potassium 20 b.i.d. Plan and coordination of the patient's care discussed in the presence of Diabetes Manager and nurse. CONDITION: STABLE SCRIBED BY: BEULAH ELLIOTT Tray Checker scribed while in presence of service performed by Dr. GUILLERMINA THORPE/LEANN SABILLON APRN on 09/24/16 ([id number])
[2016-09-24] MEDS: VANCOMYCIN 750 MG in SODIUM CHLORIDE 250 ML IV SCH ×2 (10:27→20:44)
--- NOTE | 2016-09-24 11:14 | PN ---
DATE OF SERVICE: 09/23/16 SUBJECTIVE: The patient is an 81 year old white male hospitalized with right arm cellulitis , small abrasion. The patient's condition has improved remarkably. Practically the skin has been normal throughout the right upper limb. No evidence of any infection or cellulitis, localized ulcer is very shallow. The patient is feeling better and more alert. REVIEW OF SYSTEMS: CONSTITUTIONAL: No night sweats. No fatigue, malaise, lethargy. No fever or chills. HEENT: Eyes: No visual changes. No eye pain. No eye discharge. ENT: No runny nose. No epistaxis. No sinus pain. No sore throat. No odynophagia. No congestion. RESPIRATORY: No cough, no congestion. No hemoptysis. CARDIOVASCULAR: No angina symptoms. No CHF symptoms. No atypical chest pain for CAD. No palpitations. No shortness of breath. GASTROINTESTINAL: No abdominal pain. No nausea or vomiting. No diarrhea or constipation. No hematemesis. No hematochezia. GENITOURINARY: No urgency. No frequency. No dysuria. No hematuria. No obstructive symptoms. No discharge. No pain. No significant abnormal bleeding. MUSCULOSKELETAL: No musculoskeletal pain; no joint swelling. Back pain. NEUROLOGICAL: No headache. No neck pain. No syncope. No seizures. No dizziness. Confusion at time. PSYCHIATRIC: Not anxious. No depression. No suicidal thoughts. No homicidal thoughts. SKIN: No rash. No lesions. No wounds. ENDOCRINE: No unexplained weight loss. No weight gain. HEMATOLOGIC/LYMPHATIC: No anemia. No purpura. No petechiae. No prolonged or excessive bleeding. No palpable lymph nodes. PHYSICAL EXAMINATION: GENERAL: The patient is confused but alert. VITAL SIGNS: Temperature 98.1, pulse 77, respiratory rate 20, blood pressure 133/83 and pulse ox 98%. HEENT: Head normocephalic, atraumatic. Eyes: Extraocular muscles are intact. Pupils are equal, round and reactive to light and accommodation. Ears: No lesions. Nose appeared normal. Throat: No exudate or erythema. NECK: Supple. No JVD, no carotid bruit. No lymphadenopathy or thyromegaly. LUNGS: Decreased breath sounds but clear to auscultation. Percussion note normal. Chest symmetrical. HEART: S1, S2, no S3. No murmurs. No cyanosis or clubbing. No ascites. Pulses: Dorsalis pedis and posterior tibial pulses +1 to +2 both sides. ABDOMEN: Soft. Nontender. Bowel sounds active. No CVA tenderness. No mass felt. EXTREMITIES: No edema. Full range of motion of all extremities, equal. NEUROLOGIC: No focal deficit. Cranial nerves II through XII are grossly intact. No headache, no double vision or headache. SKIN: Not dry. Intact. Turgor - normal. LYMPHATIC: No palpable lymph nodes/no lymphedema. MUSCULOSKELETAL: Normal joints with no swelling. Muscle tone is normal. LABS: Hgb 12.6, hct 36, WBC 10,700 normal differential, creatinine 1, BUN 23, potassium 3.6 ASSESSMENT: 1. Cellulitis, right upper extremity resolved with mild abrasion noted. No redness practically normal looking skin 2. Decubitus on left heel, resolving 3. Dementia 4. Severe DJD of L spine 5. Dyslipidemia 6. Diabetes mellitus PLAN: 1. Continue Vancomycin 2. Rocephin 3. The patient's family in the room. The patient is confused at present time likely with Dementia. 4. Will start the patient on Aricept and on Namenda. CONDITION: Stable TIME SPENT: More than 30 minutes. Plan and coordination of the patient's care discussed in the presence of nurse. SUZED
[2016-09-24] MEDS ORDERED: CITRATE OF MAGNESIA PO STA ×2 (12:24→12:37)
[2016-09-24] MEDS: SODIUM CHLORIDE 1,000 ML IV SCH ×2 (12:36→15:55)
[2016-09-24] MEDS: NEURONTIN PO SCH ×3 (15:44→20:48)
[2016-09-24] MEDS: ATIVAN IM SCH (15:45)
[2016-09-24] MEDS ORDERED: ATIVAN IM SCH (16:00)
[2016-09-24] MEDS: TORADOL IVP PRN (16:51)
[2016-09-24] MEDS: HUMULIN R SUBCUT PRN ×2 (18:44→20:46)
[2016-09-24] MEDS: XALATAN OP SCH (20:45)
[2016-09-24] MEDS: PRAVACHOL PO SCH (20:48)
[2016-09-25 05:40] LABS: BASOPHILS % (AUTO) 0.1 % (0.0-3.0); EOSINOPHILS # (AUTO) 0.1 K/ul (0.0-0.7); EOSINOPHILS % (AUTO) 0.6 % (0.0-7.0); HEMOGLOBIN 11.2 g/dl (14.0-18.0); IMMATURE GRANULOCYTE % (AUTO) 1.6 % (0.0-5.0); LYMPHOCYTES % (AUTO) 11.5 (10.0-50.0); MEAN CORPUSCULAR HGB CONC 33.9 (31.8-35.4); MEAN CORPUSCULAR VOLUME 94.3 fl (80.0-94.0); MONOCYTES # (AUTO) 0.5 K/uL (0.4-2.0); MONOCYTES % (AUTO) 5.5 (0-10); NEUTROPHILS # (AUTO) 7.2 K/ul (2.0-6.9); NEUTROPHILS % (AUTO) 80.7; PLATELET COUNT 232 10^3/uL (140-440); WHITE BLOOD COUNT 8.89 K/ul (4.2-10.2)
[2016-09-25 05:58] LABS: ALBUMIN 2.4 g/dL (3.4-5.0); ALBUMIN/GLOBULIN RATIO 0.77; ANION GAP 17.2; BILIRUBIN,TOTAL 0.37 mg/dL (0.00-1.20); BUN/CREATININE RATIO 20.51; CALCIUM 8.2 mg/dL (8.2-10.2); CREATININE 0.78 mg/dL (0.60-1.10); POTASSIUM 4.2 mmol/L (3.5-5.1); TOTAL PROTEIN 5.5 g/dL (5.8-8.1)
[2016-09-25] MEDS: PERCOCET 7.5-325 PO SCH ×3 (05:59→21:09)
[2016-09-25] MEDS: SODIUM CHLORIDE 1,000 ML IV SCH (05:59)
[2016-09-25] MEDS ORDERED: ATIVAN ONE (08:01)
[2016-09-25] MEDS ORDERED: LASIX IVP STA (08:41)
[2016-09-25] MEDS ORDERED: DURAGESIC TD SCH (09:00)
[2016-09-25] MEDS: TORADOL IVP PRN (09:16)
[2016-09-25] MEDS: TIMOPTIC 0.5% OPTH OP SCH ×2 (09:16→21:10)
[2016-09-25] MEDS: ATIVAN IM SCH (09:17)
[2016-09-25] MEDS: NAMENDA PO SCH ×2 (09:17→21:09)
[2016-09-25] MEDS: APRESOLINE PO SCH ×3 (09:18→21:09)
[2016-09-25] MEDS: ROCEPHIN 1 GM in SODIUM CHLORIDE 50 ML IV SCH (09:18)
[2016-09-25] MEDS: DIOVAN PO SCH (09:18)
[2016-09-25] MEDS: NEURONTIN PO SCH ×3 (09:18→21:09)
[2016-09-25] MEDS: PREDNISONE PO SCH (09:18)
[2016-09-25] MEDS: BYSTOLIC PO SCH (09:18)
[2016-09-25] MEDS: CLARITIN PO SCH (09:18)
[2016-09-25] MEDS: BACTROBAN TP SCH ×2 (09:19→21:23)
[2016-09-25] MEDS: LOVENOX SUBCUT SCH (09:19)
[2016-09-25] MEDS: SOMA PO SCH ×3 (09:20→21:08)
[2016-09-25] MEDS: NYSTATIN CREAM TP SCH (09:20)
[2016-09-25] MEDS: COLACE PO SCH ×2 (09:22→21:27)
--- NOTE | 2016-09-25 09:31 | PCM.PROG ---
Attending Provider: ATTENDING PROVIDER: Dr. GUILLERMINA THORPE DATE OF SERVICE: 09/25/16 SUBJECTIVE: This 81 year old WHITE/ M was hospitalized 09/22/16. The patient is seen with Leann, Nurse Practitioner. The patient is lying in bed, had a restless night and is not eating much. REVIEW OF SYSTEMS: CONSTITUTIONAL: No night sweats. No fatigue, malaise, lethargy. No fever or chills. HEENT: Eyes: No visual changes. No eye pain. No eye discharge. ENT: No runny nose. No epistaxis. No sinus pain. No odynophagia. No congestion. RESPIRATORY: No cough, no congestion. No hemoptysis. CARDIOVASCULAR: No angina symptoms. No CHF symptoms. No atypical chest pain for CAD. No palpitations. No shortness of breath. GASTROINTESTINAL: No abdominal pain. No nausea or vomiting. No diarrhea or constipation. No hematemesis. No hematochezia. GENITOURINARY: No urgency. No frequency. No dysuria. No hematuria. No obstructive symptoms. No discharge. No pain. No significant abnormal bleeding. MUSCULOSKELETAL: Right arm swelling. NEUROLOGICAL: Alert with confusion. No headache. No neck pain. No syncope. No seizures. No dizziness. PSYCHIATRIC: Not anxious. No depression. No suicidal thoughts. No homicidal thoughts. SKIN: Erythema from right elbow to wrist. ENDOCRINE: No unexplained weight loss. No weight gain. HEMATOLOGIC/LYMPHATIC: No anemia. No purpura. No petechiae. No prolonged or excessive bleeding. No palpable lymph nodes. PHYSICAL EXAMINATION: GENERAL: The patient is awake, alert and oriented, lying/sitting in bed in no distress. VITAL SIGNS: Temperature 98.2 F, Pulse 77, Respiratory Rate 19, BP 152/70, Pulse Ox 100% HEENT: Head normocephalic, atraumatic. Eyes: Extraocular muscles are intact. Pupils are equal, round and reactive to light and accommodation. Ears: No lesions. Nose appeared normal. Throat: No exudate or erythema. NECK: Supple. No JVD, no carotid bruit. No lymphadenopathy or thyromegaly. LUNGS: Diminished breath sounds bilaterally. Clear to auscultation. Percussion note normal. Chest symmetrical. HEART: S1, S2, no S3. No murmurs. No cyanosis or clubbing. No ascites. Pulses: Dorsalis pedis and posterior tibial pulses +1 to +2 both sides. ABDOMEN: Soft. Non-tender. Bowel sounds active. No CVA tenderness. No mass felt. EXTREMITIES: No pedal edema. Full range of motion of all extremities, equal. The right arm has +1 pitting edema from elbow to wrist, with increased erythema , no drainage NEUROLOGIC: Alert but confused. No focal deficit. Cranial nerves II through XII are grossly intact. No headache, no double vision or headache. SKIN: +1 pitting edema of right elbow to wrist with increasing erythema. LYMPHATIC: No palpable lymph nodes/no lymphedema. MUSCULOSKELETAL: Normal joints with no swelling. Muscle tone is normal. LAB REVIEW: 09/25/16 05:37 09/25/16 05:37 09/25/16 05:37: WBC 8.89, RBC 3.50 L, Hgb 11.2 L, Hct 33.0 L, MCV 94.3 H, MCH 32.0 H, MCHC 33.9, RDW Coeff of Quiana 13.6, Plt Count 232, Immature Gran % (Auto) 1.6, Neut % (Auto) 80.7, Lymph % (Auto) 11.5, [place] % (Auto) 5.5, Eos % (Auto) 0.6, Baso % (Auto) 0.1, Immature Gran # (Auto) 0.1, Neut # 7.2 H, Lymph # 1.0, [place] # 0.5, Eos # 0.1, Baso # 0.0, Sodium 143, Potassium 4.2, Chloride 112 H, Carbon Dioxide 18 L, Anion Gap 17.2, BUN 16, Creatinine 0.78, Estimated GFR ( MDRD) 96.00, BUN/Creatinine Ratio 20.51, Glucose 81 L, Calcium 8.2, Total Bilirubin 0.37, AST 49 H, ALT 52, Alkaline Phosphatase 85, Total Protein 5.5 L, Albumin 2.4 L, Globulin 3.1, Albumin/Globulin Ratio 0.77 ASSESSMENT: 1. Positive MRSA, right elbow cellulitis 2. Decubitus left heel 3. Dementia with behavioral disturbances 4. Hypokalemia. resolved PLAN: 1. Lasix 20 MG IV push. 2. Will have the patient up to chair as he tolerates. 3. Keep the patient from lying on the right arm. 4. Continue IV antibiotics. 5. Culture showed sensitivity to Vancomycin. Plan and coordination of the patient's care discussed in the presence of Application Counselor and nurse. CONDITION: Stable SCRIBED BY: Reid NGist scribed while in presence of service performed by Dr. GUILLERMINA THORPE/LEANN SABILLON APRN on 09/25/16 ([id number])
[2016-09-25] MEDS: VANCOMYCIN 750 MG in SODIUM CHLORIDE 250 ML IV SCH ×2 (10:33→21:10)
--- NOTE | 2016-09-25 11:08 | PN ---
DATE OF SERVICE: 09/24/16 SUBJECTIVE: The patient was seen with Nurse Practitioner. The patient is an 81 year old white male hospitalized with right arm cellulitis. The patient's cellulitis is localized almost resolved with no red streaks. REVIEW OF SYSTEMS: CONSTITUTIONAL: No night sweats. No fatigue, malaise, lethargy. No fever or chills. HEENT: Eyes: No visual changes. No eye pain. No eye discharge. ENT: No runny nose. No epistaxis. No sinus pain. No sore throat. No odynophagia. No congestion. RESPIRATORY: No cough, no congestion. No hemoptysis. CARDIOVASCULAR: No angina symptoms. No CHF symptoms. No atypical chest pain for CAD. No palpitations. No shortness of breath. GASTROINTESTINAL: No abdominal pain. No nausea or vomiting. No diarrhea or constipation. No hematemesis. No hematochezia. GENITOURINARY: No urgency. No frequency. No dysuria. No hematuria. No obstructive symptoms. No discharge. No pain. No significant abnormal bleeding. MUSCULOSKELETAL: No musculoskeletal pain; no joint swelling. Back pain change in mill operator. NEUROLOGICAL: No headache. No neck pain. No syncope. No seizures. No dizziness. Confused at times PSYCHIATRIC: Not anxious. No depression. No suicidal thoughts. No homicidal thoughts. SKIN: No rash. No lesions. No wounds. ENDOCRINE: No unexplained weight loss. No weight gain. HEMATOLOGIC/LYMPHATIC: No anemia. No purpura. No petechiae. No prolonged or excessive bleeding. No palpable lymph nodes. PHYSICAL EXAMINATION: GENERAL: The patient is confused but oriented to person. VITAL SIGNS: Temperature 98, pulse 70, respiratory rate 20, blood pressure 160 /80 and pulse ox 92%. HEENT: Head normocephalic, atraumatic. Eyes: Extraocular muscles are intact. Pupils are equal, round and reactive to light and accommodation. Ears: No lesions. Nose appeared normal. Throat: No exudate or erythema. NECK: Supple. No JVD, no carotid bruit. No lymphadenopathy or thyromegaly. LUNGS: Decreased breath sounds but clear to auscultation. Percussion note normal. Chest symmetrical. HEART: S1, S2, no S3. No murmurs. No cyanosis or clubbing. No ascites. Pulses: Dorsalis pedis and posterior tibial pulses +1 to +2 both sides. ABDOMEN: Soft. Nontender. Bowel sounds active. No CVA tenderness. No mass felt. EXTREMITIES: No edema. Full range of motion of all extremities, equal. Right arm has abrasion with localized swelling with some induration on the lower part of the medial aspect of the right arm near the elbow. No red streaks. NEUROLOGIC: No focal deficit. Cranial nerves II through XII are grossly intact. No headache, no double vision or headache. SKIN: Not dry. Intact. Turgor - normal. LYMPHATIC: No palpable lymph nodes/no lymphedema. MUSCULOSKELETAL: Normal joints with no swelling. Muscle tone is normal. LABS: Hgb 10.7, hct 31, WBC 7,800 normal differential, creatinine 0.9, BUN 19, potassium 3.1. ASSESSMENT: 1. Cellulitis, seems to be resolving PLAN: 1. Continue IV antibiotics 2. Kidney functions are stable improving 3. Continue all the medications 4. Will give 20meq Potassium twice a day for Hypokalemia. CONDITION: Stable. TIME SPENT: More than 30 minutes. Plan and coordination of the patient's care discussed in the presence of nurse. SEBLE
[2016-09-25] MEDS: HUMULIN R SUBCUT PRN ×2 (18:34→21:10)
[2016-09-25] MEDS: PRAVACHOL PO SCH (21:09)
[2016-09-25] MEDS: XALATAN OP SCH (21:10)
[2016-09-26] MEDS: SODIUM CHLORIDE 1,000 ML IV SCH ×2 (00:57→09:30)
[2016-09-26 04:47] LABS: BASOPHILS % (AUTO) 0.2 % (0.0-3.0); EOSINOPHILS % (AUTO) 0.7 % (0.0-7.0); HEMOGLOBIN 10.9 g/dl (14.0-18.0); IMMATURE GRANULOCYTE % (AUTO) 2.2 % (0.0-5.0); LYMPHOCYTES # (AUTO) 0.9 K/uL (0.60-3.4); MEAN CORPUSCULAR HEMOGLOBIN 32.2 pg (27.0-31.0); MEAN CORPUSCULAR HGB CONC 34.1 (31.8-35.4); MEAN CORPUSCULAR VOLUME 94.4 fl (80.0-94.0); MONOCYTES # (AUTO) 0.4 K/uL (0.4-2.0); MONOCYTES % (AUTO) 7.6 (0-10); NEUTROPHILS # (AUTO) 4.1 K/ul (2.0-6.9); NEUTROPHILS % (AUTO) 73.3; PLATELET COUNT 227 10^3/uL (140-440); RED BLOOD COUNT 3.39 10^6/ul (4.70-6.10); WHITE BLOOD COUNT 5.56 K/ul (4.2-10.2)
[2016-09-26 05:05] LABS: POTASSIUM 3.7 mmol/L (3.5-5.1)
[2016-09-26] MEDS: PERCOCET 7.5-325 PO SCH ×2 (05:05→13:26)
[2016-09-26 05:06] LABS: ALBUMIN 2.3 g/dL (3.4-5.0); ALBUMIN/GLOBULIN RATIO 0.85; ANION GAP 14.7; BILIRUBIN,TOTAL 0.36 mg/dL (0.00-1.20); BUN/CREATININE RATIO 17.33; CREATININE 0.75 mg/dL (0.60-1.10)
--- NOTE | 2016-09-26 08:17 | PCM.PROG ---
Attending Provider: ATTENDING PROVIDER: Dr. GUILLERMINA THORPE DATE OF SERVICE: 09/26/16 SUBJECTIVE: This 81 year old WHITE/ M was hospitalized 09/22/16. The patient was hospitalized with cellulitis of right arm. Condition has improved and is a lot better. Superficial ulcer has healed up with no surrounding redness. Right upper edema has practically resolved. The patient is more alert, talkative and is feeling a lot better. The daughter is present in the room. REVIEW OF SYSTEMS: CONSTITUTIONAL: No night sweats. No fatigue, malaise, lethargy. No fever or chills. HEENT: Eyes: No visual changes. No eye pain. No eye discharge. ENT: No runny nose. No epistaxis. No sinus pain. No odynophagia. No congestion. RESPIRATORY: No cough, no congestion. No hemoptysis. CARDIOVASCULAR: No angina symptoms. No CHF symptoms. No atypical chest pain for CAD. No palpitations. No shortness of breath. GASTROINTESTINAL: No abdominal pain. No nausea or vomiting. No diarrhea or constipation. No hematemesis. No hematochezia. GENITOURINARY: No urgency. No frequency. No dysuria. No hematuria. No obstructive symptoms. No discharge. No pain. No significant abnormal bleeding. MUSCULOSKELETAL: No musculoskeletal pain; no joint swelling. NEUROLOGICAL: Awake, alert, oriented to time, place and person. No headache. No neck pain. No syncope. No seizures. No dizziness. PSYCHIATRIC: Not anxious. No depression. No suicidal thoughts. No homicidal thoughts. SKIN: No rash. Right upper arm ulcer practically healed, no surrounding redness , no edema. Left decubitus heel wound under control ENDOCRINE: No unexplained weight loss. No weight gain. HEMATOLOGIC/LYMPHATIC: No anemia. No purpura. No petechiae. No prolonged or excessive bleeding. No palpable lymph nodes. PHYSICAL EXAMINATION: GENERAL: The patient is awake, alert and oriented, lying in bed in no distress. VITAL SIGNS: Temperature 98.1 F, Pulse 68, Respiratory Rate 20, BP 134/82, Pulse Ox 100% HEENT: Head normocephalic, atraumatic. Eyes: Extraocular muscles are intact. Pupils are equal, round and reactive to light and accommodation. Ears: No lesions. Nose appeared normal. Throat: No exudate or erythema. NECK: Supple. No JVD, no carotid bruit. No lymphadenopathy or thyromegaly. LUNGS: Clear to auscultation. Percussion note normal. Chest symmetrical. HEART: S1, S2, no S3. No murmurs. No cyanosis or clubbing. No ascites. Pulses: Dorsalis pedis and posterior tibial pulses +1 to +2 both sides. ABDOMEN: Soft. Non-tender. Bowel sounds active. No CVA tenderness. No mass felt. EXTREMITIES: No edema. Full range of motion of all extremities, equal. Right upper arm ulcer practically healed, no surrounding redness; no edema of right upper limb. Left decubitus heel wound under control. NEUROLOGIC: No focal deficit. Cranial nerves II through XII are grossly intact. No headache, no double vision or headache. SKIN: Not dry. Intact. Turgor-normal. LYMPHATIC: No palpable lymph nodes/no lymphedema. MUSCULOSKELETAL: Normal joints with no swelling. Muscle tone is normal. LAB REVIEW: 09/26/16 04:45 09/26/16 04:45 09/26/16 04:45: WBC 5.56, RBC 3.39 L, Hgb 10.9 L, Hct 32.0 L, MCV 94.4 H, MCH 32.2 H, MCHC 34.1, RDW Coeff of Quiana 13.6, Plt Count 227, Immature Gran % (Auto) 2.2, Neut % (Auto) 73.3, Lymph % (Auto) 16.0, [place] % (Auto) 7.6, Eos % (Auto) 0.7, Baso % (Auto) 0.2, Immature Gran # (Auto) 0.1, Neut # 4.1, Lymph # 0.9, [place] # 0.4, Eos # 0.0, Baso # 0.0, Sodium 141, Potassium 3.7, Chloride 111 H, Carbon Dioxide 19 L, Anion Gap 14.7, BUN 13, Creatinine 0.75, Estimated GFR ( MDRD) 100.00, BUN/Creatinine Ratio 17.33, Glucose 101, Calcium 8.0 L, Total Bilirubin 0.36, AST 35, ALT 43, Alkaline Phosphatase 83, Total Protein 5.0 L, Albumin 2.3 L, Globulin 2.7, Albumin/Globulin Ratio 0.85 09/25/16 09:00: Vancomycin Trough 17.06 09/23/16 07:15: Thyroxine (T4) 5.3 ASSESSMENT: 1. Positive MRSA, right elbow cellulitis clinically seems to have resolved. Considering culture and sensitivity report on MRSA will discharge on Keflex and Bactrim. 2. Decubitus left heel, under control, has appointment with Dr. Arnold for followup. 3. Dementia with behavioral disturbances, under control 4. Hypokalemia. resolved PLAN: 1. Will discharge back to correction. 2. Lasix 20 mg IV one more dose this morning. 3. Have the patient up and about. 4. Toradol 30 mg IV now. 5. Keflex 500 mg b.i.d. for 5 days. 6. Bactrim b.i.d. for 7 days. 7. Wound care appointment with Dr. Arnold on 09/28/16. 8. Continue Namenda 10 mg twice a day Plan and coordination of the patient's care discussed in the presence of Trauma Coordinator and nurse. CONDITION: Stable SCRIBED BY: BEULAH ELLIOTT Check And Transfer Beader scribed while in presence of service performed by Dr. GUILLERMINA THORPE on 09/26/16 ([id number])
[2016-09-26] MEDS ORDERED: LASIX IVP STA (08:21)
--- NOTE | 2016-09-26 08:53 | PN ---
DATE OF SERVICE: 09/25/16 SUBJECTIVE: The patient is an 81 year old white male hospitalized with cellulitis of right arm. The patient has little edema as he laid on his right arm yesterday. Infection is under control and localized. PHYSICAL EXAMINATION: GENERAL: The patient is confused. VITAL SIGNS: Temperature 98.2, pulse 70, respiratory rate 19, blood pressure 150/70 and pulse ox 100%. HEENT: Head normocephalic, atraumatic. Eyes: Extraocular muscles are intact. Pupils are equal, round and reactive to light and accommodation. Ears: No lesions. Nose appeared normal. Throat: No exudate or erythema. NECK: Supple. No JVD, no carotid bruit. No lymphadenopathy or thyromegaly. LUNGS: Decreased breath sounds but clear to auscultation. Percussion note normal. Chest symmetrical. HEART: S1, S2, no S3. No murmurs. No cyanosis or clubbing. No ascites. Pulses: Dorsalis pedis and posterior tibial pulses +1 to +2 both sides. ABDOMEN: Soft. Nontender. Bowel sounds active. No CVA tenderness. No mass felt. EXTREMITIES: No edema. Full range of motion of all extremities, equal. Right arm has localized infection. Some induration. Improving slowly and improved quite a bit in first 24 hours. Edema on the right upper extremity from laying on the right side. NEUROLOGIC: No focal deficit. Cranial nerves II through XII are grossly intact. No headache, no double vision or headache. SKIN: Not dry. Intact. Turgor - normal. LYMPHATIC: No palpable lymph nodes/no lymphedema. MUSCULOSKELETAL: Normal joints with no swelling. Muscle tone is normal. PLAN: 1. Continue same antibiotics 2. On discharge the patient will probably be going home on Septra and Cephalosporins 3. Giving IV Lasix today 20mg 4. His kidney functions 0.7 and 16. TIME SPENT: More than 30 minutes. Plan and coordination of the patient's care discussed in the presence of nurse. SEBLE
[2016-09-26] MEDS: PREDNISONE PO SCH (09:30)
[2016-09-26] MEDS: APRESOLINE PO SCH (09:35)
[2016-09-26] MEDS: ATIVAN IM SCH (09:36)
[2016-09-26] MEDS: COLACE PO SCH (09:43)
[2016-09-26] MEDS: CLARITIN PO SCH (09:43)
[2016-09-26] MEDS: DIOVAN PO SCH (09:44)
[2016-09-26] MEDS: SOMA PO SCH (09:44)
[2016-09-26] MEDS: NAMENDA PO SCH (09:45)
[2016-09-26] MEDS: NEURONTIN PO SCH (09:45)
[2016-09-26] MEDS: BYSTOLIC PO SCH (09:45)
[2016-09-26] MEDS: LOVENOX SUBCUT SCH (09:46)
[2016-09-26] MEDS: NYSTATIN CREAM TP SCH (09:47)
[2016-09-26] MEDS: BACTROBAN TP SCH (09:47)
[2016-09-26] MEDS: ROCEPHIN 1 GM in SODIUM CHLORIDE 50 ML IV SCH (09:48)
[2016-09-26] MEDS: TIMOPTIC 0.5% OPTH OP SCH (09:48)
[2016-09-26] MEDS: VANCOMYCIN 750 MG in SODIUM CHLORIDE 250 ML IV SCH (09:49)
[2016-09-26] MEDS: TORADOL IVP PRN (09:54)
[2016-09-26 10:01] VITALS: BP 110/60; TEMP 97.8
--- NOTE | 2016-09-26 11:31 | CM.DICTOOL ---
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 Lindsay Hypertension Hypothyroid Hyperlipidemia Diabetes, Type 2 Anemia Urinary Incontinence Decubitus ulcer, left heel followed by Dr. Arnold LAST VITALS Temp Pulse Resp BP Pulse Ox 97.8 F 80 24 110/60 100 09/26/16 10:00 09/26/16 10:00 09/26/16 10:00 09/26/16 10:00 09/25/16 06:00 ACTIVE HOME MEDICATIONS Carisoprodol (Soma) 350 mg PO TID [facility] Last Admin: 09/26/16 09:44 Dose: 350 mg Calcium Carbonate/Vitamin D daily Last Admin: Fentanyl (Duragesic 12 Mcg/Hr) 1 patch TD Q72HR [facility] Last Admin: 09/24/16 09:13 Dose: 1 patch Gabapentin (Neurontin) 300 mg PO TID [facility] Last Admin: 09/26/16 09:45 Dose: 300 mg Hydralazine HCl (Apresoline) 25 mg PO TID [facility] Last Admin: 09/26/16 09:35 Dose: 25 mg Humalog Insulin 0 unit SUBCUT PRN PRN; Protocol PRN Reason: Hyperglycemica Last Admin: 09/25/16 21:10 Dose: 4 unit Latanoprost (Xalatan) 1 drop OP BEDTIME [facility] Last Admin: 09/25/16 21:10 Dose: 1 drop Levocetirizine Dihydrochloride (Xyzal) 5 mg Daily Last Admin: Lorazepam (Ativan) 0.5 mg IM Q6H PRN PRN Reason: ANXIETY/AGITATION Last Admin: 09/24/16 09:15 Dose: 0.5 mg Mupirocin (Bactroban) 1 applic TP BID [facility] Last Admin: 09/26/16 09:47 Dose: 1 applic Nebivolol (Bystolic) 10 mg PO DAILY [facility] Last Admin: 09/26/16 09:45 Dose: 10 mg Nystatin (Nystatin Cream) 1 applic TP DAILY [facility] Last Admin: 09/26/16 09:47 Dose: 1 applic Oxycodone/Acetaminophen (Percocet 7.5-325) 1 tab PO Q6HR PRN Last Admin: 09/26/16 05:05 Dose: 1 tab Pravastatin Sodium (Pravachol) 20 mg PO BEDTIME [facility] Last Admin: 09/25/16 21:09 Dose: 20 mg Prednisone (Prednisone) 10 mg PO DAILYWM [facility] Last Admin: 09/26/16 09:30 Dose: 10 mg Timolol Maleate (Timoptic 0.5% Opth) 2 drop OP BID [facility] Last Admin: 09/26/16 09:48 Dose: 2 drop Valsartan (Diovan) 160 mg PO DAILY [facility] Last Admin: 09/26/16 09:44 Dose: 160 mg Santyl 1 application BID Last Admin: Delight 3 Fatty Acids 1000 mg Daily Last Admin: Protonix 40 mg Daily Last Admin: ALLERGIES amlodipine [From Norvas] Adverse Reaction (Verified 09/22/16 08:54) clonidine Adverse Reaction (Verified 09/22/16 08:54) enalaprilat [From Vasotec] Adverse Reaction (Verified 09/22/16 08:54) erythromycin base [From E-Mycin] Adverse Reaction (Verified 09/22/16 08:54) NEW PRESCRIPTIONS: Bactrim BID for 7 days Keflex 500 mg BID for 5 days Namenda 10 mg BID Colace 100 mg BID SMOKING: Not Applicable DISEASE SPECIFIC EDUCATION: Elevating Right Arm Avoid Pressure To left heel LAB REVIEW: 09/26/16 04:45 09/26/16 04:45 09/26/16 04:45: WBC 5.56, RBC 3.39 L, Hgb 10.9 L, Hct 32.0 L, MCV 94.4 H, MCH 32.2 H, MCHC 34.1, RDW Coeff of Quiana 13.6, Plt Count 227, Immature Gran % (Auto) 2.2, Neut % (Auto) 73.3, Lymph % (Auto) 16.0, [place] % (Auto) 7.6, Eos % (Auto) 0.7, Baso % (Auto) 0.2, Immature Gran # (Auto) 0.1, Neut # 4.1, Lymph # 0.9, [place] # 0.4, Eos # 0.0, Baso # 0.0, Sodium 141, Potassium 3.7, Chloride 111 H, Carbon Dioxide 19 L, Anion Gap 14.7, BUN 13, Creatinine 0.75, Estimated GFR ( MDRD) 100.00, BUN/Creatinine Ratio 17.33, Glucose 101, Calcium 8.0 L, Total Bilirubin 0.36, AST 35, ALT 43, Alkaline Phosphatase 83, Total Protein 5.0 L, Albumin 2.3 L, Globulin 2.7, Albumin/Globulin Ratio 0.85 09/23/16 07:15: Thyroxine (T4) 5.3 PLAN: Discharge to [place] Diet: Consistent Carbohydrate; Regular consistency Activity: Up to chair at least 2 times daily Turn every 2 hours Elevate Right Arm Keep left heel floated off bed Decubitus precautions Incontinent Care every 2 hours Weigh weekly Vital Signs daily for one week, then weekly Physical and Occupational therapy evaluation and treat CBC,CMP in one week, then monthly Accu-checks AC and HS Wound care to Left Heel per [facility] Wound care orders Bactoban BID to right elbow Patient has appointment at [facility] Wound [facility] [place] 09-28-2016 Mr. Torres is alert and oriented. He requires maximum assistance of 2 staff members for transfers to the bedside chair. He has not ambulated during his stay. He requires assistance with turning and repositioning. He is total care for bathing and personal care. He is able to feed himself with assistance for opening containers. He has been incontinent of bowel and bladder during his hospital stay. Redness noted to the groin areas due to incontinence. Redness is noted to the right elbow with several non-draining scabbed areas noted. A decubitus ulcer is present to the left heel. The decubitus is without drainage. Last bowel movement was 09-25-2016. Naun Meyer MD
[2016-09-26] MEDS: HUMULIN R SUBCUT PRN (11:54)
--- NOTE | 2016-09-26 14:19 | DS ---
DATE OF SERVICE: 09/26/16 FINAL DIAGNOSIS: 1. Cellulitis, right arm (MRSA) 2. Severe DJD Lumbar spine with spinal cord compression 3. Neuropathy 4. Dementia 5. Chronic kidney disease, Dr. Lindsay 6. Hypertension 7. Hypothyroidism 8. Hyperlipidemia 9. Diabetes, Type 2 10.Anemia 11.Urinary incontinence 12. Decubitus ulcer, Left heel followed by Dr. Arnold LAST VITALS: Temperature 97.8, pulse 80, respiratory rate 24, blood pressure 110/60 and pulse ox 100. DISCHARGE INSTRUCTIONS: Discharge to [place]. Turn every 2 hours. Elevate right arm. Keep left heel floated off bed. Decubitus precautions and Incontinent care every 2 hours. Weigh weekly, vital signs daily for one week, then weekly. Physical and occupational therapy evaluation and treat. CBC, CMP in one week, then monthly. Accu-checks AC and HS. Wound Care to left heel per [facility] Wound Care orders, Bactroban twice a day to right elbow and patient has appointment at [facility] Wound Care 09/28/16. MEDICATIONS AT DISCHARGE: Soma 350mg PO three times a day Calcium Carbonate/Vitamin D daily Duragesic 12mcg/hour one patch TD Q 72 hours Neurontin 300mg PO three times a day Apresoline 25mg PO three times a day Humalog 0 unit SUBCUT PRN Xalatan 1 drop OP bedtime Xyzal 5mg daily Ativan 0.5mg IM Q 6 hours PRN Bactroban 1 application TP twice a day Bystolic 10mg PO daily Nystatin Cream 1 application TP daily Percocet 7.5-325 PO Q 6 hours PRN Pravachol 20mg PO bedtime Prednisone 10mg PO daily Timoptic 2 twos OP twice a day Diovan 160mg PO daily Santyl 1 application twice a day [place] 3 Fatty acid 1000mg daily Protonix 40mg daily ALLERGIES: Amlodipine Clonidine Enalaprilat Erythromycin base NEW PRESCRIPTIONS: Bactrim twice a day for 7 days Keflex 500mg twice a day for 5 days Namenda 10mg twice a day Colace 100mg twice a day DIET INSTRUCTIONS: Consistent Carbohydrate; regular consistency ACTIVITY: Up to chair at least two times daily SMOKING: N/A DISEASE SPECIFIC EDUCATION: Elevating right arm Avoid pressure to left heel HOSPITAL COURSE: The patient is an 81 year old white male who has dementia was hospitalized from the [facility] with cellulitis of the right arm which was localized with superficial ulcer. The patient was treated with Vancomycin and Rocephin. The patient's condition has improved. His back is more or less well controlled. The patient's cardiovascular status during the stay in the hospital was normal. On discharge the patient's hgb 10.9, hct 32, WBC 5,500 normal differential, creatinine 0.7, BUN 13, potassium 3.7 and TSH normal. The patient was discharged on Keflex and Septra to be taken as outpatient. The patient has MRSA sensitive to these two antibiotics. The patient has been started on Namenda the use for it discussed with the family and they have accepted it. The patient's dose of Soma has been reduced to three times a day. The patient is being followed by [facility]. According to the family the [facility] has started patient on Prednisone, the reason for it isn't clear but we will try to get records from [facility]. CONDITION: Stable TIME SPENT: More than 60 minutes. SUZED
--- NOTE | 2016-09-26 14:20 | PN ---
09/22/16: Level 5 09/23/16: Intermediate 09/1716: Intermediate 09/25/16: Intermediate 09/26/16: D as in discharge MTDD
== END 2016-09-26 14:45 | DRG 603 ==
LOC: ED 08:11 → MEDSURG B 10:25
PROVIDERS: ADMIT Internal Medicine; ATTEND Internal Medicine
DX: L03.113 Cellulitis of right upper limb (principal); B95.62 Methicillin resistant Staphylococcus aureus infection as the cause of diseases classified elsewhere; M47.896 Other spondylosis, lumbar region; G62.9 Polyneuropathy, unspecified; G95.20 Unspecified cord compression; F03.91 Unspecified dementia, unspecified severity, with behavioral disturbance; L89.629 Pressure ulcer of left heel, unspecified stage; I12.9 Hypertensive chronic kidney disease with stage 1 through stage 4 chronic kidney disease, or unspecified chronic kidney disease; E11.22 Type 2 diabetes mellitus with diabetic chronic kidney disease; N18.9 Chronic kidney disease, unspecified; I10 Essential (primary) hypertension; E03.9 Hypothyroidism, unspecified; E78.5 Hyperlipidemia, unspecified; D64.9 Anemia, unspecified; R32 Unspecified urinary incontinence; E87.6 Hypokalemia; Z91.81 History of falling; Z79.899 Other long term (current) drug therapy
CPT/HCPCS: 36415; 80053; 80061; 80202; 82962; 83036; 83605; 84145; 84436; 84443; 85025; 87040; 87070; 87081; 87186; 93005; 93010; 96365; 97802; 99284

== ENCOUNTER 2016-10-02 13:29 | Outpatient (CLI) | payer OTHER ==
[2016-10-02 14:09] LABS: BILIRUBIN,URINE Negative (NEGATIVE); KETONES,URINE Negative (NEGATIVE); LEUKOCYTE ESTERASE ,URINE Negative (NEGATIVE); NITRITE,URINE Negative (NEGATIVE); PH,URINE 5.5 (5-9); PROTEIN,URINE Negative (NEGATIVE); URINE, BLOOD Negative (NEGATIVE)
[2016-10-02 14:39] LABS: ADD URINE MICROSCOPIC NO
[2016-10-03 08:16] LABS: URINE CREATININE 34.7 mg/dL (Not Estab.)
== END 2016-10-02 13:30 | disposition home or self-care (01) ==
LOC: NONPT 13:29
PROVIDERS: ATTEND Internal Medicine
DX: G62.9 Polyneuropathy, unspecified (principal); I12.9 Hypertensive chronic kidney disease with stage 1 through stage 4 chronic kidney disease, or unspecified chronic kidney disease; N18.9 Chronic kidney disease, unspecified
CPT/HCPCS: 81001; 82043

== ENCOUNTER 2016-10-04 09:28 | Inpatient (IN) | payer OTHER ==
[2016-10-04] MEDS ORDERED: URO-JET MUCOUSMEMB STA (09:35)
[2016-10-04] MEDS ORDERED: VANCOMYCIN 1 GM in SODIUM CHLORIDE 250 ML IV STA (09:37)
[2016-10-04] MEDS ORDERED: SODIUM CHLORIDE 1,000 ML IV STA (09:37)
[2016-10-04 09:56] LABS: ABG BASE EXCESS -1 (-2.0-2.0); ABG HCO3 22 (22.0-26.0); ABG PH 7.49 (7.35-7.45); ABG TCO2 23 (22.0-28.0)
[2016-10-04 10:11] LABS: BASOPHILS % (AUTO) 0.1 % (0.0-3.0); EOSINOPHILS # (AUTO) 0.1 K/ul (0.0-0.7); EOSINOPHILS % (AUTO) 1.2 % (0.0-7.0); HEMATOCRIT 28.9 % (42.0-52.0); HEMOGLOBIN 9.6 g/dl (14.0-18.0); LYMPHOCYTES # (AUTO) 0.8 K/uL (0.60-3.4); LYMPHOCYTES % (AUTO) 10.3 (10.0-50.0); MEAN CORPUSCULAR HGB CONC 33.2 (31.8-35.4); MEAN CORPUSCULAR VOLUME 96.3 fl (80.0-94.0); MONOCYTES # (AUTO) 0.4 K/uL (0.4-2.0); MONOCYTES % (AUTO) 6.1 (0-10); NEUTROPHILS # (AUTO) 5.9 K/ul (2.0-6.9); NEUTROPHILS % (AUTO) 81.3; PLATELET COUNT 203 10^3/uL (140-440); WHITE BLOOD COUNT 7.26 K/ul (4.2-10.2)
[2016-10-04 10:40] LABS: ALBUMIN 2.7 g/dL (3.4-5.0); ALBUMIN/GLOBULIN RATIO 0.96; ANION GAP 15.1; BILIRUBIN,TOTAL 0.35 mg/dL (0.00-1.20); BUN/CREATININE RATIO 16.26; CALCIUM 8.9 mg/dL (8.2-10.2); CREATININE 1.23 mg/dL (0.60-1.10); POTASSIUM 4.1 mmol/L (3.5-5.1); TOTAL PROTEIN 5.5 g/dL (5.8-8.1)
[2016-10-04 10:43] LABS: BILIRUBIN,URINE Negative (NEGATIVE); KETONES,URINE Negative (NEGATIVE); LEUKOCYTE ESTERASE ,URINE Negative (NEGATIVE); NITRITE,URINE Negative (NEGATIVE); PH,URINE 5.5 (5-9); PROTEIN,URINE Trace (NEGATIVE); URINE, BLOOD Negative (NEGATIVE)
[2016-10-04 10:44] LABS: ERYTHROCYTE SEDIMENTATION RATE 75 mm/hr (0-15); ESR INTERNAL QC INTERNAL QC VALID
[2016-10-04 10:46] LABS: ADD URINE MICROSCOPIC YES; BACTERIA,URINE TRACE (NOT PRESENT)
[2016-10-04 11:19] LABS: CREATINE KINASE MB 3.1 ng/ml (0.0-3.6); TROPONIN I 0.087 ng/ml (0.0000-0.4000)
--- NOTE | 2016-10-04 11:42 | CT ---
EXAM: CT chest without contrast. HISTORY: Initial presentation for recent fall. Fever and cough. COMPARISON: Radiograph 09/22/2016. TECHNIQUE: Multiple axial images of the chest were obtained without intravenous contrast. Images w ere reformatted in the sagittal and coronal planes. FINDINGS: Partially calcified mediastinal and hilar lymph nodes present. Evaluation lymphadenopath y is limited by lack of intravenous contrast. Heart size is at the upper limits of normal. Atheros clerotic calcifications present. No pericardial effusions. Subpleural reticular opacities with areas of subpleural cystic change noted bilaterally, predominate ly in a peripheral and basilar distribution. Scattered ground glass opacities are present throughou t the right lung to a lesser extent the left upper lobe. No pleural effusion or pneumothorax identi fied. No acute abnormality identified in the upper abdomen. Suspect old anterior rib fractures bilaterally. No acute fracture identified. Degenerative changes present in the spine and shoulders. IMPRESSION: Findings consistent with interstitial fibrosis. Superimposed pneumonitis, particularly on the right , is difficult to exclude.
--- NOTE | 2016-10-04 11:44 | CT ---
EXAM: CT cervical spine without contrast. HISTORY: Initial presentation for neck injury. COMPARISON: None available. TECHNIQUE: Multiple axial images of the cervical spine were obtained without intravenous contrast. Images were reformatted in the sagittal and coronal planes. FINDINGS: There is approximately 0.2 cm anterolisthesis of C4 on C5 and 0.3 cm anterolisthesis of C 7 on T1. Vertebral body heights are normal without fracture. There is moderate loss of disc height at C5-6 and C6-7. No acute fracture identified. There is ankylosis of the left-sided facets and u ncovertebral joints at C2-3. Disc osteophyte formation, uncovertebral hypertrophy and facet arthropathy present throughout the ce rvical spine causing moderate spinal stenosis at C3-4, C5-6 and C6-7 and mild spinal stenosis at C4- 5. Multilevel severe neural foraminal narrowing present C3-4 through C6-7. Paravertebral soft tiss ues are without acute abnormality. The lung apices are clear. IMPRESSION: No acute abnormality of the cervical spine.
--- NOTE | 2016-10-04 11:44 | CT ---
EXAM: CT BRAIN HISTORY: Change in mental status TECHNIQUE: CT brain without intravenous contrast. 5-mm axial sections with Reformations. COMPARISON: None FINDINGS: There is generalized atrophy. Moderately severe chronic microvascular ischemic change is suggested. There are a few areas of motion and beam-hardening artifact although no convincing evidence of int racranial hemorrhage is identified. There is no acute ventriculomegaly, mass effect or subdural hem atoma. No evidence of recent large vessel distribution ischemic infarction. No definite fracture. Mastoid air cells are aerated and the visualized paranasal sinuses are clear. IMPRESSION: Moderate involutional changes with no definite acute intracranial process.
--- NOTE | 2016-10-04 11:46 | CT ---
Exam: CT of the left foot without contrast. HISTORY: Heel ulcer, fever, query osteomyelitis. Procedures: 2 mm contiguous axial images were obtained through the left foot without the use of con trast. Sagittal and coronal reformatted images were also created and reviewed. Findings: There are no prior studies of the left foot. There are no radiographs. There is no acute fracture or dislocation. There is moderate degenerative disease of the first metatarsophalangeal j oint. There is no osseous erosion or radiodense foreign body. Specifically, there is no osseous er osion over the posterior calcaneus visualized. There is mild soft tissue irregularity noted over the posterior aspect of the calcaneus. There is no underlying fluid collection or soft tissue gas. Mi ld diffuse soft tissue edema is noted. Impressions: Soft tissue irregularity over the posterior aspect of the heel consistent with given h istory of heel ulcer. There is no underlying fluid collection or soft tissue gas visualized. There is no osseous erosion to suggest osteomyelitis. If further imaging for osteomyelitis is clini aleah indicated, recommendation is triple phase nuclear medicine bone scan or contrast enhanced MRI for more sensitive evaluation. Moderate degenerative disease at the first metatarsophalangeal joint. No acute fracture. Findings were faxed to the emergency department at 11:35 a.m.
--- NOTE | 2016-10-04 12:50 | US ---
EXAM: ULTRASOUND LOWER EXTREMITY VENOUS DOPPLER EXAM HISTORY: Elevated D-dimer, leg ulcers. FINDINGS: Bilateral lower extremity venous Doppler exam. Real time stack-scale, Doppler spectral qing lysis and color-flow Doppler imaging performed. The veins targeted for evaluation include the commo n femoral, greater saphenous, profundus, femoral, popliteal, peroneal, anterior tibial and posterior tibial. Incomplete compression of the right popliteal and peroneal veins. Spontaneous blood flow remained w ithin the popliteal. No flow within the peroneal veins. The evaluated veins otherwise demonstrated normal spontaneous flow and compression without evidence of thrombosis. IMPRESSION: 1. Occlusive thrombosis within the right peroneal veins. 2. Nonocclusive thrombosis within the right popliteal vein. 3. Otherwise unremarkable bilateral exam.
--- NOTE | 2016-10-04 13:47 | CT ---
EXAM: CTA CHEST (PE PROTOCOL) HISTORY: Shortness of breath TECHNIQUE: CTA with intravenous contrast. Multiplanar images were provided with 3-D reconstruction s. 100 ml Visipaque 320 FINDINGS: Comparison is to 10/04/2016 a 1058 hours FINDINGS: No pulmonary arterial filling defect is identified. There is mild atherosclerotic disease. Heart siz e is within normal limits. No pericardial effusion is seen. A few sub centimeter, nonspecific medi astinal hilar lymph nodes are present. Motion artifact degrades image quality especially involving the lung targeted images. There is diff use interstitial thickening and accentuation greater in the lower lung zones which it is suggestive of moderately severe interstitial fibrosis. Although no dated comparison was available, superimpose d pneumonia is probable. There is mild pulmonary vascular congestion with no significant central in terstitial edema. No pleural fluid or pneumothorax. Bones reveal moderate degenerative disc disease with facet arthropathy. There is osteoarthritis of the shoulders, greater on the right. A few renal cortical cysts are suggested. IMPRESSION: 1. No pulmonary arterial thromboembolism is identified. 2. Moderately severe interstitial fibrosis. Probable superimposed pneumonia bilaterally. 3. Mild pulmonary vascular congestion with no central interstitial edema or pleural fluid.
--- NOTE | 2016-10-04 14:02 | ED.PDOC ---
General ED Provider: Dr. KUN HERNANDEZ-ER Chief Complaint: Fever Stated Complaint: hes got a fever and hes slightly confused Time Seen by Physician: 09:35 Mode of Arrival: Ambulance Information Source: Family, Residential, EMT Exam Limitations: Clinical condition, Altered mental status Primary Care Provider: GUILLERMINA NIEVES Nursing and Triage Documentation Reviewed and Agree: Yes Neurological Complaint Exam - Altered Mental Status Complaint/Exam Current Mental Status: Unresponsiveness Last Known Well: yesterday Onset: Gradual Symptoms Are: Still present Timing: Constant Initial Severity: Mild Current Severity: Mild Eye Deviation Present: No Character: Reports: Responsiveness, Lethargy Aggravating: Reports: Unknown Alleviating: Reports: None Associated Signs and Symptoms: Reports: Weakness, Fever, Illness. Denies: Dizziness, Headache, Nuchal rigidity, Seizure, Nausea, Vomiting, Recently depressed, Trauma Carotid Bruit Present: No Glascow Coma Scale (see protocol): 14 Nystagmus Present: No Gag Reflex Present: Yes Meningeal Signs Positive: No Focal Weakness: Present: None Focal Sensory Loss: Present: None Gait: Unsteady [id number]: Normal Findings Romberg Test Positive: No Babinski Sign: Negative Right, Negative Left Signs of Injury: Present: Extremity Thrombolytics Considered: No Differential Diagnoses: Other Review of Systems - Review Of Systems Constitutional: Reports: Chills, Fever, Malaise, Weakness, Loss of appetite Eyes: Reports: No symptoms Ears, Nose, Mouth, Throat: Reports: No symptoms Respiratory: Reports: Cough Cardiac: Reports: No symptoms GI: Reports: No symptoms : Reports: No symptoms Musculoskeletal: Reports: No symptoms Skin: Reports: No symptoms Neurological: Reports: Cognitive dysfunction Endocrine: Reports: No symptoms Hematologic/Lymphatic: Reports: No symptoms All Other Systems: Reviewed and Negative Past Medical History - Past Medical History Previously Healthy: Yes Endocrine: Reports: DM 2, Dyslipidemia Cardiovascular: Reports: Hypertension Respiratory: Reports: None Hematological: Reports: None Gastrointestinal: Reports: None Genitourinary: Reports: CKD Neuro/Psych: Reports: None Musculoskeletal: Reports: None 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: Skin - Surgical History General Surgical History: Reports: None, Other (throid surgery ) - Family History Family History: Reports: None - Social History Smoking Status: Former smoker Hx Substance Use: No Alcohol Screening: None Lives: With family Physical Exam - Physical Exam Appearance: Well-appearing, No pain distress, Well-nourished Pain Distress: Mild Eyes: CATHERINE, EOMI, Conjunctiva clear ENT: Ears normal Neck: Supple Respiratory: Rhonchi Cardiovascular: RRR, Pulses normal, No rub, No murmur GI/: Soft Musculoskeletal: Normal strength Skin: Warm Neurological: Disoriented, Unresponsive Psychiatric: Affect appropriate Interpretation - Radiology Interpretation Radiology Interpretation By: Radiologist Radiology Results: Positive Exam Interpreted: CT Scan Physician Notification - Case Discussed Physician Notified: dr [email or web address] Time of Notification: 14:05 Critical Care Note - Critical Care Note Total Time (mins): 30 Course - Course Hematology/Chemistry: 10/04/16 10:00 10/04/16 10:00 Orders, Labs, Meds: Lab Review 10/04/16 10/04/16 10/04/16 08:45 09:34 10:00 WBC 7.26 RBC 3.00 L Hgb 9.6 L Hct 28.9 L MCV 96.3 H MCH 32.0 H MCHC 33.2 RDW Coeff of Quiana 13.8 Plt Count 203 Immature Gran % (Auto) 1.0 Neut % (Auto) 81.3 Lymph % (Auto) 10.3 [place] % (Auto) 6.1 Eos % (Auto) 1.2 Baso % (Auto) 0.1 Immature Gran # (Auto) 0.1 Neut # 5.9 Lymph # 0.8 [place] # 0.4 Eos # 0.1 Baso # 0.0 ESR 75 H D-Dimer (Manual) 3445.40 Puncture Site R rad O2 Saturation 91.0 L ABG pH 7.49 H ABG pCO2 29.0 L ABG pO2 55.0 L* ABG HCO3 22 ABG Total CO2 23 ABG Base Excess -1 Ross Test + FiO2 % 21.0 Sodium 138 Potassium 4.1 Chloride 104 Carbon Dioxide 23 Anion Gap 15.1 BUN 20 H Creatinine 1.23 H Estimated GFR (MDRD) 57.00 BUN/Creatinine Ratio 16.26 Glucose 111 Lactic Acid 14.2 Calcium 8.9 Total Bilirubin 0.35 AST 48 H ALT 45 Alkaline Phosphatase 98 Total Creatine Kinase 269 CK-MB (CK-2) 3.1 CK-MB (CK-2) % 1.91546 Troponin I 0.0870 Total Protein 5.5 L Albumin 2.7 L Globulin 2.8 Albumin/Globulin Ratio 0.96 Procalcitonin 0.22 Urine Color Urine Clarity Urine pH Ur Specific [place] Urine Protein Urine Glucose (UA) Urine Ketones Urine Blood Urine Nitrite Urine Bilirubin Urine Urobilinogen Ur Leukocyte Esterase Urine Microscopic RBC Urine Microscopic WBC Ur Squamous Epith Cells Ur Renal Epithelial Cell Urine Bacteria Urine Mucus 10/04/16 10:36 WBC RBC Hgb Hct MCV MCH MCHC RDW Coeff of Quiana Plt Count Immature Gran % (Auto) Neut % (Auto) Lymph % (Auto) [place] % (Auto) Eos % (Auto) Baso % (Auto) Immature Gran # (Auto) Neut # Lymph # [place] # Eos # Baso # ESR D-Dimer (Manual) Puncture Site O2 Saturation ABG pH ABG pCO2 ABG pO2 ABG HCO3 ABG Total CO2 ABG Base Excess Ross Test FiO2 % Sodium Potassium Chloride Carbon Dioxide Anion Gap BUN Creatinine Estimated GFR (MDRD) BUN/Creatinine Ratio Glucose Lactic Acid Calcium Total Bilirubin AST ALT Alkaline Phosphatase Total Creatine Kinase CK-MB (CK-2) CK-MB (CK-2) % Troponin I Total Protein Albumin Globulin Albumin/Globulin Ratio Procalcitonin Urine Color Yellow Urine Clarity Clear Urine pH 5.5 Ur Specific [place] 1.020 Urine Protein Trace Urine Glucose (UA) Negative Urine Ketones Negative Urine Blood Negative Urine Nitrite Negative Urine Bilirubin Negative Urine Urobilinogen 0.2 Ur Leukocyte Esterase Negative Urine Microscopic RBC 0-2 Urine Microscopic WBC 0-2 Ur Squamous Epith Cells Not present Ur Renal Epithelial Cell 0-2 Urine Bacteria Trace Urine Mucus Trace Orders Category Date Time Status ABG DRAW REQUEST Stat CARDIO 10/04/16 09:34 Completed EKG-(ED ONLY) Stat CARDIO 10/04/16 09:34 Completed NPO REMINDER: IMAGING ONCE CARE 10/04/16 11:57 Completed Castellanos [ED CATHETER INSERTION AND CARE] .ONCE EMERGENCY 10/04/16 09:35 Active IV [ED IV/MEDIPORT/POWERPORT] .ONCE EMERGENCY 10/04/16 09:37 Active ABG Stat LAB 10/04/16 09:34 Completed BLOOD CULTURE Stat LAB 10/04/16 10:00 Received CBC W/ AUTO DIFF Stat LAB 10/04/16 10:00 Completed COMPREHENSIVE METABOLIC PANEL Stat LAB 10/04/16 10:00 Completed CREATINE KINASE Stat LAB 10/04/16 08:45 Completed D-DIMER Stat LAB 10/04/16 08:45 Completed ESR Stat LAB 10/04/16 10:00 Completed LACTIC ACID Stat LAB 10/04/16 10:00 Completed PROCALCITONIN Stat LAB 10/04/16 10:00 Completed TROPONIN I Stat LAB 10/04/16 08:45 Completed URINALYSIS C & S IF INDICATED Stat LAB 10/04/16 10:36 Completed 0.9 % Sodium Chloride [Saline Flush] MEDS 10/04/16 09:37 Active 1 syr IVF PRN PRN Lidocaine HCl [Uro-Jet] MEDS 10/04/16 09:35 Discontinued 10 ml MUCOUSMEMB ONCE STA Sodium Chloride 0.9% [Sodium Chloride] 1,000 ml MEDS 10/04/16 09:37 Active IV 100 mls/hr Vancomycin HCl [Vancomycin] 1 gm MEDS 10/04/16 09:37 Discontinued 0.9 % Sodium Chloride [Sodium Chloride] [address] CERVICAL SPINE W/O CONTRAST Stat RADS 10/04/16 10:[address] CHEST PE PROTOCOL Stat RADS 10/04/16 11:[address] CHEST W/O CONTRAST Stat RADS 10/04/16 09:[address] FOOT LEFT WITHOUT CONTRAST Stat RADS 10/04/16 09:[address] HEAD W/O CONTRAST Stat RADS 10/04/16 09:36 Completed ULTRASOUND VENOUS SCAN VANGIE LEGS [U/S VENOUS SCAN VANGIE RADS 10/04/16 11:58 Completed LEGS] Stat Medications Generic Name Dose Route Start Last Admin Trade Name Freq PRN Reason Stop Dose Admin Sodium Chloride 1,000 mls @ 100 mls/hr 10/04/16 09:37 10/04/16 10:31 Sodium Chloride IV 10/04/16 19:36 100 mls/hr .Q10H STA Administration Sodium Chloride 1 syr 10/04/16 09:37 Saline Flush IVF PRN PRN To flush IV Discontinued Medications Generic Name Dose Route Start Last Admin Trade Name Freq PRN Reason Stop Dose Admin Vancomycin HCl 1 gm/ Sodium 250 mls @ 250 mls/hr 10/04/16 09:37 10/04/16 10: 29 Chloride IV 10/04/16 10:36 250 mls/hr ONCE STA Administration Lidocaine HCl 10 ml 10/04/16 09:35 10/04/16 10:31 Uro-Jet MUCOUSMEMB 10/04/16 09:36 10 ml ONCE STA Administration Vital Signs: Temp Pulse Resp BP Pulse Ox 10/04/16 09:29 102.1 F H 105 H 24 107/58 L 92 L Departure - Departure Time of Disposition: 14:05 Disposition: ADMITTED INPATIENT Discharge Problem: Sepsis Qualifiers: Sepsis type: sepsis due to unspecified organism Qualifier Code: (A41.9) Sepsis , unspecified organism DVT (deep venous thrombosis) Qualifiers: DVT location: lower extremity Affected thrombotic vein of extremity: unspecified vein of extremity Chronicity: acute Laterality: right Qualifier Code : (I82.401) Acute embolism and thrombosis of unspecified deep veins of right lower extremity Instructions: Fever in Adults (ED) Condition: Poor Pt referred to PMD for follow-up: Yes Allergies/Adverse Reactions: Allergies amlodipine [From Norvasc] Adverse Reaction (Verified 10/04/16 10:46) clonidine Adverse Reaction (Verified 10/04/16 10:46) enalaprilat [From Vasotec] Adverse Reaction (Verified 10/04/16 10:46) erythromycin base [From E-Mycin] Adverse Reaction (Verified 10/04/16 10:46) Home Medications: Ambulatory Orders Calcium Carbonate/Vitamin D3 [Calcium 600 + Vit D 400 Tablet] 1 each PO DAILY Cholecalciferol (Vitamin D3) [Vitamin D] 1,000 unit PO DAILY 09/22/16 Fentanyl 12 Mcg/Hr [Duragesic 12 Mcg/Hr] 1 patch TD Q72HR 09/22/16 Gabapentin [Neurontin] 300 mg PO TID 09/22/16 Hydralazine HCl 25 mg PO TID 09/22/16 Insulin Lispro [Humalog] See Protocol SUBCUT QID 09/22/16 Latanoprost [Xalatan] 1 drop EACHEYE BEDTIME 09/22/16 Levocetirizine Dihydrochloride [Xyzal] 5 mg PO DAILY 09/22/16 Lorazepam Inj [Ativan] 1 mg IM Q6H PRN 09/22/16 Mupirocin [Bactroban] 1 applic TP BID 09/22/16 Nebivolol HCl [Bystolic] 10 mg PO DAILY 09/22/16 Nystatin [Nystatin Cream] 1 applic TP TID 09/22/16 [place]-3 Fatty Acids/Fish Oil [Fish Oil 1,000 mg Capsule] 1 each PO DAILY Oxycodone-Acetaminophe 7.5-325 [Percocet 7.5-325] 1 tab PO Q6H PRN 09/22/16 Pantoprazole Sodium [Protonix] 40 mg PO QDAC 09/22/16 Pravastatin Sodium [Pravachol] 20 mg PO BEDTIME 09/22/16 Prednisone 10 mg PO DAILYWM 09/22/16 Timolol Maleate 0.5% [Timoptic 0.5% Opth] 2 drop EACHEYE BID 09/22/16 Valsartan [Diovan] 160 mg PO DAILY 09/22/16 Docusate Sodium [Colace] 100 mg PO BID #1 capsule 09/26/16 Memantine HCl [Namenda] 10 mg PO BID #1 tablet 09/26/16 Carisoprodol [Soma] 350 mg PO QID 10/04/16 Furosemide [Lasix] 20 mg PO DAILY 10/04/16 Olanzapine [Zyprexa] 2.5 mg PO BEDTIME 10/04/16 Transfer Form Completed: Yes Disposition Discussed With: Family
[2016-10-04] MEDS: SODIUM CHLORIDE 1,000 ML IV SCH (15:50)
[2016-10-04] MEDS: ZOSYN 4.5 GM 4.5 GM in SODIUM CHLORIDE 100 ML IV SCH ×2 (15:51→20:39)
[2016-10-04 16:16] VITALS: BMI 30.1
[2016-10-04] MEDS ORDERED: SOLU-MEDROL 125 MG IVP ONE (16:56)
[2016-10-04] MEDS ORDERED: SOLU-CORTEF 250 MG IVP ONE (17:00)
[2016-10-04] MEDS: HUMULIN R SUBCUT PRN (17:28)
[2016-10-04] MEDS: SOMA PO SCH ×3 (17:29→22:54)
[2016-10-04] MEDS ORDERED: SOLU-CORTEF 250 MG IVP SCH (18:00)
[2016-10-04] MEDS ORDERED: ZOSYN 3.375 GM 3.375 GM in SODIUM CHLORIDE 100 ML IV SCH (18:00)
[2016-10-04] MEDS: XOPENEX 0.63 MG NEB SCH ×2 (18:35→23:43)
[2016-10-04] MEDS: SOLU-CORTEF 250 MG IVP SCH (20:39)
[2016-10-04] MEDS: TORADOL IVP SCH (20:40)
[2016-10-04] MEDS ORDERED: NON-FORMULARY MEDICATION (Hydralazine Hcl [Hydralazine Hcl] 25 MG) PO SCH (21:00)
[2016-10-04] MEDS ORDERED: VANCOMYCIN 1 GM in SODIUM CHLORIDE 250 ML IV SCH (21:00)
[2016-10-04] MEDS ORDERED: LOVENOX SUBCUT SCH (21:00)
[2016-10-04] MEDS ORDERED: SOLU-MEDROL 125 MG IVP SCH (21:00)
[2016-10-04] MEDS: XALATAN OP SCH (21:22)
[2016-10-04] MEDS: ZYPREXA PO SCH ×2 (21:22→22:54)
[2016-10-04] MEDS: NEURONTIN PO SCH ×2 (21:22→22:54)
[2016-10-04] MEDS: TIMOPTIC 0.5% OPTH OP SCH (21:22)
[2016-10-04] MEDS: APRESOLINE PO SCH ×2 (21:22→22:52)
[2016-10-04] MEDS: LOVENOX SUBCUT SCH (21:23)
[2016-10-04] MEDS: VANCOMYCIN 750 MG in SODIUM CHLORIDE 250 ML IV SCH (21:51)
[2016-10-05] MEDS: ZOSYN 4.5 GM 4.5 GM in SODIUM CHLORIDE 100 ML IV SCH ×5 (00:56→23:42)
[2016-10-05] MEDS: TORADOL IVP SCH ×3 (04:33→20:41)
[2016-10-05] MEDS: SOLU-CORTEF 250 MG IVP SCH ×3 (04:33→20:41)
[2016-10-05] MEDS: XOPENEX 0.63 MG NEB SCH ×4 (05:05→23:25)
[2016-10-05] MEDS: LASIX TAB PO SCH (05:56)
[2016-10-05] MEDS: HUMULIN R SUBCUT PRN ×4 (05:56→21:47)
[2016-10-05] MEDS: LOVENOX SUBCUT SCH ×2 (08:50→21:43)
[2016-10-05] MEDS: VANCOMYCIN 750 MG in SODIUM CHLORIDE 250 ML IV SCH ×2 (08:51→20:41)
[2016-10-05] MEDS: TIMOPTIC 0.5% OPTH OP SCH ×2 (08:52→21:55)
[2016-10-05] MEDS: APRESOLINE PO SCH ×3 (08:54→21:43)
[2016-10-05] MEDS: DIOVAN PO SCH (08:54)
[2016-10-05] MEDS: SOMA PO SCH ×4 (08:54→21:44)
[2016-10-05] MEDS: BYSTOLIC PO SCH (08:54)
[2016-10-05] MEDS: NEURONTIN PO SCH ×3 (08:54→21:44)
[2016-10-05] MEDS ORDERED: NON-FORMULARY MEDICATION (Nebivolol Hcl [Bystolic] 10 MG) PO SCH ×22 (09:00)
--- NOTE | 2016-10-05 09:13 | HP ---
DATE OF SERVICE: 10/04/16 REASON FOR HOSPITALIZATION/HISTORY OF PRESENT ILLNESS: The patient is an 81 year old male brought [facility] from [facility] [place] with a fever and increasing confusion. His confusion has been worsening over the past several days. He was recently started on Zyprexa and this was thought to be a possible side effect until he developed a fever of 102 at the group home today. He has had several falls over the past several days. He is responsive and somewhat confused. He does have a history of dementia. No nausea, vomiting or diarrhea. REVIEW OF SYSTEMS: CONSTITUTIONAL: No night sweats. Weakness and malaise. Fever and chills. HEENT: Eyes: No visual changes. No eye pain. No eye discharge. ENT: No runny nose. No epistaxis. No sinus pain. No sore throat. No odynophagia. No ear pain. No congestion. RESPIRATORY: Mild cough, no congestion. No hemoptysis. CARDIOVASCULAR: No angina symptoms. No CHF symptoms. No atypical chest pain for CAD. No palpitations. No shortness of breath. No orthopnea. No chest pain. GASTROINTESTINAL: No abdominal pain. Nausea. No vomiting. No diarrhea or constipation. No hematemesis. No hematochezia. Loss of appetite. GENITOURINARY: No urgency. No frequency. No dysuria. No hematuria. No obstructive symptoms. No discharge. No pain. No significant abnormal bleeding. MUSCULOSKELETAL: No musculoskeletal pain. No joint swelling. No arthritis. Generalized weakness. NEUROLOGICAL: No headache. No neck pain. No syncope. No seizures. No dizziness. Bought of Confusion. PSYCHIATRIC: Not anxious. No depression. No suicidal thoughts. No homicidal thoughts. SKIN: No rash. No lesions. No wounds. Multiple bruises from a number of falls however no breakdown. ENDOCRINE: No unexplained weight loss. No weight gain. HEMATOLOGIC/LYMPHATIC: No anemia. No purpura. No petechiae. No prolonged or excessive bleeding. No palpable lymph nodes. PERSONAL/FAMILY/SOCIAL HISTORY: The patient quit smoking approximately 35 years ago, he has recently moved into [facility] while his is still living at home. He doesn't drink alcohol or use illicit drugs. Since being in the group home he is up and about with assistance only. PAST MEDICAL/SURGICAL PROBLEMS: Recently hospitalization for right arm cellulitis Chronic kidney disease Diabetes Mellitus, type 2 Hypothyroidism GERD History of glaucoma BPH Hypertension Osteoarthritis Degenerative joint disease of the spine Chronic kidney disease History of colon polyps Dyslipidemia Colonoscopy with Dr. Sal MEDICATIONS: Timoptic 0.5% two drops each eye twice a day Vitamin D 1,000 unit PO daily Prednisone 10mg PO daily Pravachol 20mg PO daily Percocet 7.5-325 PO Q 6 hours PRN Protonix 40mg PO QDAC Nystatin 1 application TP three times a day Xalatan 1 drop each eye bedtime Hydralazine HCL 25mg PO three times a day Neurontin 300mg PO three times a day Fish oil 1,000mg PO daily Duragesic 12mcg/hr one patch TD Q 72 hours Bystolic 10mg PO daily Calcium 600+Vit D 400 PO daily Bactroban 1 application TP twice a day Ativan 1mg IM Q 6 hours PRN Xyzal 5mg PO daily Diovan 160mg PO daily Humalog SUBCUT four times a day Colace 100ng PO twice a day Namenda 10mg PO twice a day Lasix 20mg PO daily Soma 350mg PO four times a day Zyprexa 2.5mg PO bedtime ALLERGIES: Amlodipine Clonidine Enalaprilat Erythromycin base PHYSICAL EXAMINATION: GENERAL: The patient is well appearing. Well nourished in mild pain distress. VITAL SIGNS: Temperature 102.1, pulse 105, respirations 24, blood pressure 107/ 58 and pulse ox 92%. HEENT: Head normocephalic, atraumatic. Eyes: Extraocular muscles are intact. Pupils are equal, round and reactive to light and accommodation. Ears: No lesions. Nose appeared normal. The patient is hard of hearing. Throat: No exudate or erythema. NECK: Supple. No JVD, no carotid bruit. No lymphadenopathy or thyromegaly. LUNGS: Diminished bilaterally with bilateral bronchi. Clear to auscultation. Percussion note normal. Chest symmetrical. HEART: S1, S2, no S3. No murmurs, clicks or rubs. No cyanosis or clubbing. No ascites. Pulses: Dorsalis pedis and posterior tibial pulses +1 to +2 both sides. Regular rate and rhythm. ABDOMEN: Soft. Nontender. Bowel sounds active times four quadrants. No CVA tenderness. No mass felt. EXTREMITIES: No edema. Full range of motion of all extremities, equal. No calf tenderness, redness or swelling. NEUROLOGIC: No focal deficit. Cranial nerves II through XII are grossly intact. No headache, no double vision or headache. The patient is alert and oriented to person however not place or time. SKIN: Dry. Intact. Turgor - normal. Warm. Multiple bruising due to history of falls. He does have a chronic wound on his left heal which has been there for some time and there are no sign of symptoms of infection. LYMPHATIC: No palpable lymph nodes/no lymphedema. MUSCULOSKELETAL: Normal joints with no swelling. Muscle tone is normal. LABS: WBC 7.26, hgb 9.6, hct 28.9, plt count 203, D-dimer 3,445, ABG's O2 saturation 91, pH 7.49, pCO2 29, pO2 55, HCO3 22, total CO2 23 and Base excess -1. Sodium 138, potassium 4.1, chloride 104, carbon dioxide 23, BUN 20, creatinine 1.23, glucose 111, ESR 75, AST 48, ALT 45, Alkaline phosphatase 98, CK-MB 3.1, Total protein 5.5. Urine was positive for Trace bacteria, trace mucus, trace protein, negative blood, negative nitrate. Imagining: Lower extremity venous Doppler showed occlusive thrombosis within the right peroneal veins and nonocclusive thrombosis within the right popiteal vein otherwise otherwise unremarkable. CTA of the chest showed no pulmonary arterial thromboembolism however did show probable superimposed bilateral pneumonia along with moderately severe interstitial fibrosis. CT of the left foot was done without contrast due to the decubitus on the heal which showed no osseous erosion to suggest osteomyelitis. Only mild soft tissue edema was noted. CT of the spine was done which showed no acute abnormalities. CT of the brain was done which showed no acute process. ASSESSMENT: 1. Bilateral pneumonia per CT scan 2. Fever of 102 etiology somewhat unknown 3. DVT right leg 4. Acute dementia 5. Status post cellulitis of the right arm 6. Compression fracture of the L spine 7. Spinal stenosis PLAN: 1. Will admit to the floor 2. The patient will be placed on IV Zosyn and IV Vancomycin to cover for pneumonia 3. Will still IV Solu-Cortef 125mg Q 6 hours 4. Will monitor ABG's periodically 5. Tylenol for fever 6. Routine Telemetry orders 7. CBC and CMP daily 8. Will start on Lovenox due to DVT 9. Oxygen as needed 10.Monitor for skin breakdown 11.Diet as tolerated 12.Castellanos Catheter, the patient is to remain in bed 13.IV fluids 14.Monitor vital signs closely 15.Routine monitoring of ABGS 16.Will continue will previous home medications 17.Sliding scale insulin coverage 18.Will continue with pain medications due to chronic back condition 19.Sputum for culture 20.Urine for culture 21.Will start NEBS treatment Q 6 hours as well. TIME SPENT: More than 70 minutes. MTDD
--- NOTE | 2016-10-05 11:19 | PCM.PROG ---
Attending Provider: ATTENDING PROVIDER: Dr. GUILLERMINA THORPE DATE OF SERVICE: 10/05/16 SUBJECTIVE: This 81 year old WHITE/ M was hospitalized 10/04/16. The patient is seen with Leann Nurse Practitoiner. The patient is alert, confused lying flat in bed. The patient refuses to take his p.o. medications this morning. REVIEW OF SYSTEMS: CONSTITUTIONAL: Positive for weakness. No night sweats. No fever or chills. HEENT: Eyes: No visual changes. No eye pain. No eye discharge. ENT: No runny nose. No epistaxis. No sinus pain. No odynophagia. No congestion. RESPIRATORY: No cough, no congestion. No hemoptysis. CARDIOVASCULAR: No angina symptoms. No CHF symptoms. No atypical chest pain for CAD. No palpitations. No shortness of breath. GASTROINTESTINAL: No abdominal pain. No nausea or vomiting. No diarrhea or constipation. No hematemesis. No hematochezia. GENITOURINARY: No urgency. No frequency. No dysuria. No hematuria. No obstructive symptoms. No discharge. No pain. No significant abnormal bleeding. MUSCULOSKELETAL: Back pain. NEUROLOGICAL: Awake, alert, confused. No headache. No neck pain. No syncope. No seizures. No dizziness. PSYCHIATRIC: Not anxious. No depression. No suicidal thoughts. No homicidal thoughts. SKIN: No rash. Ulcer left heel. ENDOCRINE: No unexplained weight loss. No weight gain. HEMATOLOGIC/LYMPHATIC: No anemia. No purpura. No petechiae. No prolonged or excessive bleeding. No palpable lymph nodes. PHYSICAL EXAMINATION: GENERAL: The patient is awake, alert with confusion, lying in bed in no distress. VITAL SIGNS: Temperature 96.5 F, Pulse 72, Respiratory Rate 16, BP 124/68, Pulse Ox 96% HEENT: Head normocephalic, atraumatic. Eyes: Extraocular muscles are intact. Pupils are equal, round and reactive to light and accommodation. Ears: No lesions. Nose appeared normal. Throat: No exudate or erythema. NECK: Supple. No JVD, no carotid bruit. No lymphadenopathy or thyromegaly. LUNGS: Diminished breath sounds bilaterally. Clear to auscultation. Percussion note normal. Chest symmetrical. HEART: S1, S2, no S3. No murmurs. No cyanosis or clubbing. No ascites. Pulses: Dorsalis pedis and posterior tibial pulses +1 to +2 both sides. ABDOMEN: Soft. Non-tender. Bowel sounds active. No CVA tenderness. No mass felt. EXTREMITIES: No edema. Full range of motion of all extremities, equal. 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 NEUROLOGIC: No focal deficit. Cranial nerves II through XII are grossly intact. No headache, no double vision or headache. SKIN: Not dry. Intact. Turgor-normal. LYMPHATIC: No palpable lymph nodes/no lymphedema. MUSCULOSKELETAL: Normal joints with no swelling. Muscle tone is normal. ASSESSMENT: 1. Bibasilar pneumonia, bilaterally 2. DVT right peroneal vein 3. Acute dementia with behavioral disturbances 4. Degenerative joint disease with history of compression fractures PLAN: 1. Continue IV Vancomycin and Zosyn 2. Continue Lovenox 3. Diet as tolerated 4. Ativan p.r.n. for agitation Plan and coordination of the patient's care discussed in the presence of Prison Psychiatrist and nurse. CONDITION: Stable SCRIBED BY: BEULAH ELLIOTT Water Service Dispatcher scribed while in presence of service performed by Dr. GUILLERMINA THORPE/LEANN SABILLON APRN on 10/05/16 (0801)
[2016-10-05] MEDS: SODIUM CHLORIDE 1,000 ML IV SCH (12:31)
--- NOTE | 2016-10-05 13:10 | PN ---
DATE OF SERVICE: 10/04/16 - ADMITTING NOTE - THE PATIENT SEEN IN THE EMERGENCY ROOM AND ALSO IN SPECIAL CARE UNIT AT APPROXIMATELY 1700. REASON FOR HOSPITALIZATION: High fever, respiratory failure. HISTORY OF PRESENT ILLNESS: Bashir was brought to the emergency room from the intermediate because he was running a high fever. On further workup in the emergency room, the patient has p02 of 55 with oxygen saturation less than 90% with respiratory failure. CT scan showed possibility of pneumonia or scarring but could be infiltrate. The patient's UA was negative. The blood cultures, urine cultures have been drawn. The patient has no productive cough or any complaints of coughing. The patient has been found to be somewhat more confused for the past couple of days by the family members. REVIEW OF SYSTEMS: CONSTITUTIONAL: Weakness and malaise. No night sweats. Fever and chills. HEENT: Eyes: No visual changes. No eye pain. No eye discharge. ENT: No runny nose. No epistaxis. No sinus pain. No sore throat. No odynophagia. No congestion. RESPIRATORY: No cough, no congestion. No hemoptysis. CARDIOVASCULAR: No angina symptoms. No CHF symptoms. No atypical chest pain for CAD. No palpitations. No shortness of breath. GASTROINTESTINAL: No abdominal pain. No nausea or vomiting. No diarrhea or constipation. No hematemesis. No hematochezia. GENITOURINARY: No urgency. No frequency. No dysuria. No hematuria. No obstructive symptoms. No discharge. No pain. No significant abnormal bleeding. MUSCULOSKELETAL: No musculoskeletal pain; no joint swelling. NEUROLOGICAL: Confusion. No headache. No neck pain. No syncope. No seizures. No dizziness. PSYCHIATRIC: Not anxious. No depression. No suicidal thoughts. No homicidal thoughts. SKIN: No rash. ENDOCRINE: No unexplained weight loss. No weight gain. HEMATOLOGIC/LYMPHATIC: No anemia. No purpura. No petechiae. No prolonged or excessive bleeding. No palpable lymph nodes. PHYSICAL EXAMINATION: VITAL SIGNS: Temperature 99.6, pulse 80, BP 91/60, respiratory rate 24. Height 5'8", weight 198 lbs. HEENT: Head normocephalic, atraumatic. Eyes: Extraocular muscles are intact. Pupils are equal, round and reactive to light and accommodation. Ears: No lesions. Nose appeared normal. Throat: No exudate or erythema. NECK: Supple. No JVD, no carotid bruit. No lymphadenopathy or thyromegaly. LUNGS: Decreased breath sounds; maybe mild wheeze at the bases. Percussion note normal. Chest symmetrical. HEART: S1, S2, no S3. Tachycardia. No cyanosis or clubbing. No ascites. Pulses: Dorsalis pedis and posterior tibial pulses +1 to +2 both sides. ABDOMEN: Soft. Nontender. Bowel sounds active. No CVA tenderness. No mass felt. EXTREMITIES: No edema. Full range of motion of all extremities, equal. NEUROLOGIC: The patient is sleepy but opens the eyes with verbal commands. He answered questions but is confused. SKIN: Warm and dry. Intact. Turgor - normal. LYMPHATIC: No palpable lymph nodes/no lymphedema. MUSCULOSKELETAL: Normal joints with no swelling. Muscle tone is normal. The family members as usual are around, especially daughter, Heidi. They have been taking care of him very well at the intermediate and also they are present. They do not want any intubation or respirator. The is also present. They were explained all the diagnoses and possibilities. ASSESSMENT: 1. RESPIRATORY FAILURE LIKELY FROM MAYBE PNEUMONITIS. 2. FEVER, AGAIN COULD BE FROM PNEUMONIA OR UTI, COULD BE VIRAL. 3. DEMENTIA. 4. 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 PLAN: 1. Will put patient on Zosyn and Vancomycin combination with steroids. 2. Toradol will be given for pain. 3. IV fluids. 4. Monitor CBC, CMP. 5. Telemetry. CONDITION: Stable at present time. PROGNOSIS: Poor. The patient was seen and examined in the presence of nurse practitioner also. TIME SPENT: More than 30 minutes. Plan and coordination of the patient's care discussed in the presence of nurse. SEBLE
[2016-10-05] MEDS: XALATAN OP SCH (21:43)
[2016-10-05] MEDS: ZYPREXA PO SCH (21:44)
[2016-10-06 04:41] LABS: HEMATOCRIT 27.8 % (42.0-52.0); HEMOGLOBIN 9.4 g/dl (14.0-18.0); MEAN CORPUSCULAR HEMOGLOBIN 32.2 pg (27.0-31.0); MEAN CORPUSCULAR HGB CONC 33.8 (31.8-35.4); MEAN CORPUSCULAR VOLUME 95.2 fl (80.0-94.0); PLATELET COUNT 191 10^3/uL (140-440); RED BLOOD COUNT 2.92 10^6/ul (4.70-6.10); WHITE BLOOD COUNT 6.55 K/ul (4.2-10.2)
[2016-10-06 04:44] LABS: ANISOCYTOSIS NOT PRESENT (NOT PRESENT)
[2016-10-06 05:03] LABS: ALBUMIN 2.3 g/dL (3.4-5.0); ALBUMIN/GLOBULIN RATIO 0.85; ANION GAP 17.8; BILIRUBIN,TOTAL 0.29 mg/dL (0.00-1.20); BUN/CREATININE RATIO 18.79; CALCIUM 8.3 mg/dL (8.2-10.2); CREATININE 1.49 mg/dL (0.60-1.10); POTASSIUM 3.8 mmol/L (3.5-5.1)
[2016-10-06] MEDS: XOPENEX 0.63 MG NEB SCH ×4 (05:09→23:43)
[2016-10-06] MEDS: TORADOL IVP SCH ×3 (05:49→22:46)
[2016-10-06] MEDS: ZOSYN 4.5 GM 4.5 GM in SODIUM CHLORIDE 100 ML IV SCH ×5 (05:49→23:16)
[2016-10-06] MEDS: SOLU-CORTEF 250 MG IVP SCH ×3 (05:49→22:45)
[2016-10-06] MEDS: LASIX TAB PO SCH (05:49)
[2016-10-06] MEDS: SODIUM CHLORIDE 1,000 ML IV SCH ×2 (07:36→11:18)
[2016-10-06] MEDS ORDERED: DURAGESIC TD SCH (09:00)
[2016-10-06] MEDS ORDERED: LASIX IVP STA (09:11)
[2016-10-06] MEDS: APRESOLINE PO SCH ×3 (09:42→22:53)
[2016-10-06] MEDS: DIOVAN PO SCH (09:43)
[2016-10-06] MEDS: BYSTOLIC PO SCH (09:43)
[2016-10-06] MEDS: LOVENOX SUBCUT SCH ×2 (09:44→22:47)
[2016-10-06] MEDS: VANCOMYCIN 750 MG in SODIUM CHLORIDE 250 ML IV SCH ×2 (09:45→21:30)
[2016-10-06] MEDS: TIMOPTIC 0.5% OPTH OP SCH ×2 (09:45→22:46)
[2016-10-06] MEDS ORDERED: COLACE PO PRN (10:03)
[2016-10-06] MEDS ORDERED: NEURONTIN PO STA (10:04)
[2016-10-06] MEDS ORDERED: SOMA PO STA (10:05)
[2016-10-06] MEDS ORDERED: SOMA ONE (10:09)
[2016-10-06] MEDS: HUMULIN R SUBCUT PRN (11:13)
[2016-10-06] MEDS: NEURONTIN PO SCH ×2 (11:26→22:53)
[2016-10-06] MEDS: SOMA PO SCH ×3 (11:31→22:52)
[2016-10-06] MEDS: ATIVAN IM PRN ×2 (13:10→20:03)
[2016-10-06] MEDS ORDERED: ATIVAN IVP STA (15:57)
[2016-10-06] MEDS: ZYPREXA PO SCH (17:45)
--- NOTE | 2016-10-06 21:46 | ED.PDOC ---
Procedures - IV/Art Line Insertion Location: rt wrist Type of Line: Peripheral IV Invasive Line/IV Catheter Gauge: 22 Number of Attempts: 1 Blood Return Positive: Yes Invasive Line/IV Flushes Without Difficulty: Yes Conscious Sedation - Pre-op Assessment Weight: 198 lb 1.6 oz - Medical History Past Medical History: Hypertension, Diabetes, High Lipids, Kidney Disease, Anxiety, Arthritis Other History: dementia, barretts esophagus
[2016-10-06] MEDS: XALATAN OP SCH (22:49)
[2016-10-06] MEDS: PERCOCET 7.5-325 PO PRN (22:53)
[2016-10-07] MEDS: ATIVAN IM PRN (02:36)
[2016-10-07] MEDS: XOPENEX 0.63 MG NEB SCH ×4 (05:41→23:05)
[2016-10-07] MEDS: SODIUM CHLORIDE 1,000 ML IV SCH (05:42)
[2016-10-07] MEDS: ZOSYN 4.5 GM 4.5 GM in SODIUM CHLORIDE 100 ML IV SCH ×4 (05:42→23:38)
[2016-10-07] MEDS: TORADOL IVP SCH ×3 (05:43→20:09)
[2016-10-07] MEDS: SOLU-CORTEF 250 MG IVP SCH ×2 (05:44→12:34)
[2016-10-07] MEDS: DEMADEX PO SCH ×2 (05:54→06:13)
[2016-10-07] MEDS: PERCOCET 7.5-325 PO PRN (05:55)
[2016-10-07] MEDS: HUMULIN R SUBCUT PRN ×3 (05:56→21:59)
[2016-10-07] MEDS ORDERED: DURAGESIC TD SCH ×2 (09:00)
[2016-10-07 09:09] LABS: ALBUMIN 2.3 g/dL (3.4-5.0); ALBUMIN/GLOBULIN RATIO 0.88; ANION GAP 18.4; BILIRUBIN,TOTAL 0.33 mg/dL (0.00-1.20); BUN/CREATININE RATIO 19.48; CALCIUM 8.1 mg/dL (8.2-10.2); CREATININE 1.54 mg/dL (0.60-1.10); POTASSIUM 3.4 mmol/L (3.5-5.1); TOTAL PROTEIN 4.9 g/dL (5.8-8.1)
[2016-10-07] MEDS: VANCOMYCIN 750 MG in SODIUM CHLORIDE 250 ML IV SCH ×2 (09:28→09:46)
[2016-10-07] MEDS: LOVENOX SUBCUT SCH ×2 (09:29→20:13)
[2016-10-07] MEDS ORDERED: COLACE PO ONE (09:37)
[2016-10-07] MEDS ORDERED: NEURONTIN PO ONE ×2 (09:38→09:59)
[2016-10-07] MEDS: APRESOLINE PO SCH ×2 (11:08→20:00)
[2016-10-07] MEDS: BYSTOLIC PO SCH (11:08)
[2016-10-07] MEDS: NEURONTIN PO SCH ×2 (11:09→20:01)
[2016-10-07] MEDS: DIOVAN PO SCH (11:09)
[2016-10-07] MEDS: TIMOPTIC 0.5% OPTH OP SCH ×2 (11:11→20:12)
[2016-10-07] MEDS: SOMA PO SCH ×3 (11:13→20:00)
[2016-10-07] MEDS ORDERED: SODIUM CHLORIDE IV SCH (14:59)
[2016-10-07] MEDS ORDERED: POTASSIUM CHLORIDE IV SCH (14:59)
[2016-10-07] MEDS ORDERED: ADDITIVE ONLY IV SCH (14:59)
[2016-10-07] MEDS ORDERED: POTASSIUM CHLORIDE 10 MEQ VIAL-ADDITIVE ONLY IV ONE (16:03)
[2016-10-07] MEDS: POTASSIUM CHLORIDE 10 MEQ VIAL-ADDITIVE ONLY 10 MEQ in SODIUM CHLORIDE 0.9%-KCL 20 MEQ ... IV SCH (16:11)
[2016-10-07] MEDS: ZYPREXA PO SCH (18:19)
[2016-10-07] MEDS: XALATAN OP SCH (20:12)
[2016-10-07] MEDS: NYSTOP POWDER TP SCH (20:24)
[2016-10-07] MEDS ORDERED: VANCOMYCIN 500 MG in SODIUM CHLORIDE 100 ML IV SCH (21:00)
[2016-10-08] MEDS: HALDOL IM PRN ×2 (00:28→22:01)
[2016-10-08] MEDS: TORADOL IVP SCH ×3 (03:59→20:05)
[2016-10-08 05:14] LABS: HEMATOCRIT 19.2 % (42.0-52.0); HEMOGLOBIN 6.4 g/dl (14.0-18.0); MEAN CORPUSCULAR HEMOGLOBIN 32.2 pg (27.0-31.0); MEAN CORPUSCULAR HGB CONC 33.3 (31.8-35.4); MEAN CORPUSCULAR VOLUME 96.5 fl (80.0-94.0); PLATELET COUNT 183 10^3/uL (140-440); RED BLOOD COUNT 1.99 10^6/ul (4.70-6.10); WHITE BLOOD COUNT 9.49 K/ul (4.2-10.2)
[2016-10-08] MEDS: XOPENEX 0.63 MG NEB SCH ×4 (05:17→23:08)
[2016-10-08] MEDS: ZOSYN 4.5 GM 4.5 GM in SODIUM CHLORIDE 100 ML IV SCH ×3 (05:18→17:00)
[2016-10-08 05:21] LABS: ANISOCYTOSIS NOT PRESENT (NOT PRESENT)
[2016-10-08 05:34] LABS: ALBUMIN 2.1 g/dL (3.4-5.0); ALBUMIN/GLOBULIN RATIO 0.84; ANION GAP 16.1; BILIRUBIN,TOTAL 0.42 mg/dL (0.00-1.20); BUN/CREATININE RATIO 21.05; CREATININE 1.71 mg/dL (0.60-1.10); POTASSIUM 3.1 mmol/L (3.5-5.1); TOTAL PROTEIN 4.6 g/dL (5.8-8.1)
[2016-10-08] MEDS: DEMADEX PO SCH (06:17)
[2016-10-08 06:18] LABS: HEMATOCRIT 18.9 % (42.0-52.0); HEMOGLOBIN 6.3 g/dl (14.0-18.0)
[2016-10-08] MEDS ORDERED: BYSTOLIC PO SCH (08:29)
[2016-10-08] MEDS: SOMA PO SCH ×2 (08:58→20:34)
[2016-10-08] MEDS: NEURONTIN PO SCH ×2 (08:58→20:34)
[2016-10-08] MEDS: PREDNISONE PO SCH (08:58)
[2016-10-08] MEDS: APRESOLINE PO SCH ×2 (08:58→20:34)
[2016-10-08] MEDS: TIMOPTIC 0.5% OPTH OP SCH ×2 (08:58→21:10)
[2016-10-08] MEDS: NYSTOP POWDER TP SCH ×2 (09:07→20:37)
--- NOTE | 2016-10-08 09:17 | PCM.PROG ---
Attending Provider: ATTENDING PROVIDER: Dr. GUILLERMINA THORPE DATE OF SERVICE: 10/08/16 SUBJECTIVE: This 81 year old WHITE/ M was hospitalized 10/04/16. The patient is hospitalized with DVT, dementia, and possibility of pneumonia. The patient's condition has worsened with duration of kidney function, hypokalemia, deterioration of mental status as well as drop in hemoglobin. The patient has ecchymosis underneath the skin and abdominal wall, which is superficial. No evidence of active GI bleed. The patient had declined any blood drawn yesterday and was impossible to draw due to mental status. The family has decided on comfort measures but will give 2 units of PRBC in case hemoglobin and hematocrit are low. The patient has had diarrhea over the past 24 hours and stool was sent for C. diff and occult blood. The patient's daughter is present. REVIEW OF SYSTEMS: CONSTITUTIONAL: Sleepy. Weakness. No night sweats. No fever or chills. HEENT: Eyes: No visual changes. No eye pain. No eye discharge. ENT: No runny nose. No epistaxis. No sinus pain. No odynophagia. No congestion. RESPIRATORY: No cough, no congestion. No hemoptysis. CARDIOVASCULAR: No angina symptoms. No CHF symptoms. No atypical chest pain for CAD. No palpitations. No shortness of breath. GASTROINTESTINAL: He has had some diarrhea the past 24 hours. No abdominal pain. No nausea or vomiting. No hematemesis. No hematochezia. GENITOURINARY: No urgency. No frequency. No dysuria. No hematuria. No obstructive symptoms. No discharge. No pain. No significant abnormal bleeding. MUSCULOSKELETAL: No musculoskeletal pain; no joint swelling. NEUROLOGICAL: Sleepy, confused. No headache. No neck pain. No syncope. No seizures. No dizziness. PSYCHIATRIC: Not anxious. No depression. No suicidal thoughts. No homicidal thoughts. SKIN: No rash. ENDOCRINE: No unexplained weight loss. No weight gain. HEMATOLOGIC/LYMPHATIC: As above. No palpable lymph nodes. PHYSICAL EXAMINATION: GENERAL: The patient is sleepy and confused lying in bed in no obvious distress. VITAL SIGNS: Temperature 98.6 F, Pulse 72, Respiratory Rate 20, BP 97/53, Pulse Ox 92% HEENT: Head normocephalic, atraumatic. Eyes: Extraocular muscles are intact. Pupils are equal, round and reactive to light and accommodation. Ears: No lesions. Nose appeared normal. Throat: No exudate or erythema. NECK: Supple. No JVD, no carotid bruit. No lymphadenopathy or thyromegaly. LUNGS: Decreased breath sounds with harsh breathing but clear. Percussion note normal. Chest symmetrical. HEART: S1, S2, no S3. No murmurs. No cyanosis or clubbing. No ascites. Pulses: Dorsalis pedis and posterior tibial pulses +1 to +2 both sides. ABDOMEN: The patient has abdominal wall edema noted with some ecchymosis around the area where he receives Lovenox. Abdomen is soft. Non-tender. Bowel sounds active. No CVA tenderness. No mass felt. EXTREMITIES: Right lower extremity is less swollen than before but still has + 1 pitting edema. NEUROLOGIC: No focal deficit. Cranial nerves II through XII are grossly intact. No headache, no double vision or headache. SKIN: Not dry. Intact. Turgor-normal. LYMPHATIC: No palpable lymph nodes/no lymphedema. MUSCULOSKELETAL: Normal joints with no swelling. Muscle tone is normal. LAB REVIEW: 10/08/16 06:05 10/08/16 05:05 10/08/16 06:05: Hgb 6.3 L, Hct 18.9 L 10/08/16 05:05: WBC 9.49, RBC 1.99 L, Hgb 6.4 L D, Hct 19.2 L D, MCV 96.5 H, MCH 32.2 H, MCHC 33.3, RDW Coeff of Quiana 13.8, Plt Count 183, Neutrophils % ( Manual) 80.0 H, Lymphocytes % (Manual) 18.0, Basophils % (Manual) 2.0 H, Nucleated RBCs 1.0, Anisocytosis Not present, Sodium 145, Potassium 3.1 L, Chloride 115 H, Carbon Dioxide 17 L, Anion Gap 16.1, BUN 36 H, Creatinine 1.71 H , Estimated GFR (MDRD) 39.00, BUN/Creatinine Ratio 21.05, Glucose 131 H, Calcium 8.0 L, Total Bilirubin 0.42, AST 70 H, ALT 52, Alkaline Phosphatase 84, Total Protein 4.6 L, Albumin 2.1 L, Globulin 2.5, Albumin/Globulin Ratio 0.84 10/07/16 08:25: Sodium 143, Potassium 3.4 L, Chloride 113 H, Carbon Dioxide 15 L , Anion Gap 18.4, BUN 30 H, Creatinine 1.54 H, Estimated GFR (MDRD) 44.00, BUN/ Creatinine Ratio 19.48, Glucose 157 H, Calcium 8.1 L, Total Bilirubin 0.33, AST 64 H, ALT 56, Alkaline Phosphatase 80, Total Protein 4.9 L, Albumin 2.3 L, Globulin 2.6, Albumin/Globulin Ratio 0.88, Vancomycin Trough 25.87 H* ASSESSMENT: 1. Anemia with blood loss 2. The patient is on Lovenox for DVT. I will stop Lovenox and type and cross 2 units and will transfuse with STAT H & H 3. Chronic kidney disease worsening with continuation of slow IV hydration 75 cc hr 4. Hypokalemia 5. Dementia 6. History of pneumonia 7. History of DVT 8. Worsening of dementia PLAN: 1. Hold Lovenox 2. Type and Cross 2 units, hold per H & H 3. Discontinue Valsartan 4. Discontinue Vancomycin 5. Decrease Bystolic to 5 mg 6. The patient is DNR Plan and coordination of the patient's care discussed in the presence of Casualty Insurance Claim Adjuster and nurse. CONDITION: Critical PROGNOSIS: Poor SCRIBED BY: BEULAH ELLIOTT Publication Director scribed while in presence of service performed by Dr. GUILLERMINA THORPE/JV SABILLON APRN on 10/08/16 (0800)
[2016-10-08 09:24] LABS: OCCULT BLOOD INTERNAL QC 1 INTERNAL QC VALID; OCCULT BLOOD SAMPLE 1 POSITIVE (NEGATIVE)
--- NOTE | 2016-10-08 09:29 | PN ---
DATE OF SERVICE: 10/05/16 SUBJECTIVE: The patient was seen and examined with Education Professor and Nurse Practitioner. The patient is an 81 year old white male hospitalized with pneumonia and high fever and DVT. The patient's condition seems to have improved except for mental status. PHYSICAL EXAMINATION: GENERAL: The patient is confused but alert. VITAL SIGNS: Temperature 96.5, pulse 72, respiratory rate 16, blood pressure 124/68 and pulse ox 96%. HEENT: Head normocephalic, atraumatic. Eyes: Extraocular muscles are intact. Pupils are equal, round and reactive to light and accommodation. Ears: No lesions. Nose appeared normal. Throat: No exudate or erythema. NECK: Supple. No JVD, no carotid bruit. No lymphadenopathy or thyromegaly. LUNGS: Decreased breath sounds but clear with mild wheeze on the right and left . Percussion note normal. Chest symmetrical. HEART: S1, S2, no S3. No murmurs. No cyanosis or clubbing. No ascites. Pulses: Dorsalis pedis and posterior tibial pulses +1 to +2 both sides. ABDOMEN: Soft. Nontender. Bowel sounds active. No CVA tenderness. No mass felt. EXTREMITIES: Trace edema right lower extremity. Full range of motion of all extremities, equal. NEUROLOGIC: No focal deficit. Cranial nerves II through XII are grossly intact. No headache, no double vision or headache. SKIN: Not dry. Intact. Turgor - normal. LYMPHATIC: No palpable lymph nodes/no lymphedema. MUSCULOSKELETAL: Normal joints with no swelling. Muscle tone is normal. ASSESSMENT: 1. DVT being treated 2. Pneumonia being treated with Zosyn and Vancomycin 3. Dementia 1. The patient has been restless and agitated practically all night. He didn't take his oral medications. 2. The patient will be put on regular diet as tolerate. 3. Continue the same management and treatment. 4. He will get Toradol 30 IV Q 8 hours for his pain. He doesn't seem to be in pain. 5. The dementia worsening could be change in the patients surroundings and place frequently lately during past three to four weeks. TIME SPENT: More than 30 minutes. Plan and coordination of the patient's care discussed in the presence of nurse. SEBLE
--- NOTE | 2016-10-08 09:54 | PN ---
DATE OF SERVICE: 10/07/16 SUBJECTIVE: 81-year-old white male hospitalized with pneumonia and DVT. The patient's condition has steadily improved. The dementia has been the problem. The kidney functions were 1.49 and now is 1.5 which is the same. Mild hypokalemia. The patient's IV will be changed and potassium will be added. Today, the patient is more stable, less agitated, still confused. The family members are present. I saw the patient in the morning and also around 2 p.m. The was in the room along with brother and sister. Of note, the patient had a couple of bowel movements, fairly good sized. REVIEW OF SYSTEMS: CONSTITUTIONAL: No night sweats. No fatigue, malaise, lethargy. No fever or chills. HEENT: Eyes: No visual changes. No eye pain. No eye discharge. ENT: No runny nose. No epistaxis. No sinus pain. No sore throat. No odynophagia. No congestion. RESPIRATORY: No cough, no congestion. No hemoptysis. CARDIOVASCULAR: No angina symptoms. No CHF symptoms. No atypical chest pain for CAD. No palpitations. No shortness of breath. No PND, no orthopnea. GASTROINTESTINAL: No abdominal pain. No nausea or vomiting. No diarrhea or constipation. No hematemesis. No hematochezia. GENITOURINARY: No urgency. No frequency. No dysuria. No hematuria. No obstructive symptoms. No discharge. No pain. No significant abnormal bleeding. MUSCULOSKELETAL: No musculoskeletal pain; no joint swelling. NEUROLOGICAL: Confusion and agitation present off and on throughout the hospital stay. No headache. No neck pain. No syncope. No seizures. No dizziness. PSYCHIATRIC: Agitation. No depression. No suicidal thoughts. No homicidal thoughts. SKIN: No rash. No lesions. No wounds. ENDOCRINE: No unexplained weight loss. No weight gain. HEMATOLOGIC/LYMPHATIC: No anemia. No purpura. No petechiae. No prolonged or excessive bleeding. No palpable lymph nodes. LABS: Hemoglobin 9.4, hematocrit 27, WBC 6,500, normal differential. PHYSICAL EXAMINATION: GENERAL: The patient is confused. VITAL SIGNS: Temperature 97, pulse 76, respiratory rate 20, BP 117/80. Pulse ox 94%. HEENT: Head normocephalic, atraumatic. Eyes: Extraocular muscles are intact. Pupils are equal, round and reactive to light and accommodation. Ears: No lesions. Nose appeared normal. Throat: No exudate or erythema. NECK: Supple. No JVD, no carotid bruit. No lymphadenopathy or thyromegaly. LUNGS: Decreased breath sounds, faint wheeze. Percussion note normal. Chest symmetrical. HEART: S1, S2, no S3. No murmurs. No cyanosis or clubbing. No ascites. Pulses: Dorsalis pedis and posterior tibial pulses +1 to +2 both sides. ABDOMEN: Soft. Mildly distended. Bowel sounds active. No CVA tenderness. No mass felt. EXTREMITIES: No edema. Full range of motion of all extremities, equal. NEUROLOGIC: No focal deficit. Cranial nerves II through XII are grossly intact. No headache, no double vision or headache. SKIN: Not dry. Intact. Turgor - normal. LYMPHATIC: No palpable lymph nodes/no lymphedema. MUSCULOSKELETAL: Normal joints with no swelling. Muscle tone is normal. ASSESSMENT: 1. Pneumonia seems to be under control. 2. Fever on admission could be from viral syndrome or pneumonia, unknown. 3. DVT right lower extremity. 4. 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 PLAN: 1. Continue Lovenox 2. Discontinue telemetry because of the confusion and of course telemetry has sinus rhythm, no arrhythmias. Cardiac status seems to be stable. This morning the patient was hooked up for echo and I postponed this because patient was resting. 3. Also, Ativan increased to 1 mg IV q.8hr for agitation. 4. Also decrease Soma to twice a day and Neurontin just to one a day. 5. Zyprexa. TIME SPENT: More than 30 minutes. Plan and coordination of the patient's care discussed in the presence of nurse. SEBLE
--- NOTE | 2016-10-08 11:01 | PN ---
DATE OF SERVICE: 10/06/16 SUBJECTIVE: The patient is an 81 year old white male hospitalized with DVT and pneumonia. The patient is being treated with Lovenox and IV antibiotics and steroids. This morning the daughter is present along with nursing staff. The patient is alert and eating, almost feeding himself. He almost finished his breakfast. He is answering questions completely off his remarks but very fluent. REVIEW OF SYSTEMS: CONSTITUTIONAL: No night sweats. No fatigue, malaise, lethargy. No fever or chills. HEENT: Eyes: No visual changes. No eye pain. No eye discharge. ENT: No runny nose. No epistaxis. No sinus pain. No sore throat. No odynophagia. No congestion. RESPIRATORY: No cough, no congestion. No hemoptysis. CARDIOVASCULAR: No angina symptoms. No CHF symptoms. No atypical chest pain for CAD. No palpitations. Mild shortness of breath with talking. GASTROINTESTINAL: No abdominal pain. No nausea or vomiting. No diarrhea or constipation. No hematemesis. No hematochezia. GENITOURINARY: No urgency. No frequency. No dysuria. No hematuria. No obstructive symptoms. No discharge. No pain. No significant abnormal bleeding. MUSCULOSKELETAL: No musculoskeletal pain; no joint swelling. NEUROLOGICAL: No headache. No neck pain. No syncope. No seizures. No dizziness. PSYCHIATRIC: Not anxious. No depression. No suicidal thoughts. No homicidal thoughts. Confusion. SKIN: No rash. No lesions. No wounds. ENDOCRINE: No unexplained weight loss. No weight gain. HEMATOLOGIC/LYMPHATIC: No anemia. No purpura. No petechiae. No prolonged or excessive bleeding. No palpable lymph nodes. PHYSICAL EXAMINATION: GENERAL: The patient is confused VITAL SIGNS: Temperature 97.3, pulse 80, respiratory rate 16, blood pressure 101/61 and pulse ox 92% with 2 liters. HEENT: Head normocephalic, atraumatic. Eyes: Extraocular muscles are intact. Pupils are equal, round and reactive to light and accommodation. Ears: No lesions. Nose appeared normal. Throat: No exudate or erythema. NECK: Supple. No JVD, no carotid bruit. No lymphadenopathy or thyromegaly. LUNGS: Decreased breath sounds with few creps. Percussion note normal. Chest symmetrical. HEART: S1, S2, no S3. No murmurs. No cyanosis or clubbing. No ascites. Pulses: Dorsalis pedis and posterior tibial pulses +1 to +2 both sides. ABDOMEN: Soft. Nontender. Bowel sounds active. No CVA tenderness. No mass felt. EXTREMITIES: Right lower extremity +1 pitting edema and trace on the left. Some swelling in the hands. Full range of motion of all extremities, equal. NEUROLOGIC: No focal deficit. Cranial nerves II through XII are grossly intact. No headache, no double vision or headache. SKIN: Not dry. Intact. Turgor - normal. LYMPHATIC: No palpable lymph nodes/no lymphedema. MUSCULOSKELETAL: Normal joints with no swelling. Muscle tone is normal. LABS: hgb 9.4, hct 27, WBC 6,500 normal differential, creatinine 1.4, BUN 28, potassium 3.8. ASSESSMENT: 1. Pneumonia by x-ray seems to be resolving 2. DVT, right lower extremity with no pulmonary embolism 3. Dementia 4. Severe DJD of the spine with spinal stenosis 5. Left heal Decubitus 6. Chronic kidney disease, being followed by Pedigree Tracer. PLAN: 1. Decrease the Hydralazine to twice a day 2. Gabapentin to twice a day 3. Soma to three times a day 4. IV Lasix 1 dose today 5. Change Furosemide to Torsemide CONDITION: Stable PROGNOSIS: Guarded TIME SPENT: More than 30 minutes. Plan and coordination of the patient's care discussed in the presence of nurse. SEBLE
[2016-10-08] MEDS: CARAFATE PO SCH ×3 (11:28→21:10)
[2016-10-08] MEDS ORDERED: LASIX IVP STA (13:02)
[2016-10-08] MEDS: PROTONIX IV 40 MG in SODIUM CHLORIDE 100 ML IV SCH (15:02)
[2016-10-08] MEDS: POTASSIUM CHLORIDE 10 MEQ VIAL-ADDITIVE ONLY 10 MEQ in SODIUM CHLORIDE 0.9%-KCL 20 MEQ ... IV SCH (15:04)
[2016-10-08] MEDS: ZYPREXA PO SCH (16:09)
[2016-10-08] MEDS: HUMULIN R SUBCUT PRN ×2 (17:13→21:11)
[2016-10-08] MEDS: ATIVAN IVP PRN (18:00)
[2016-10-08] MEDS: XALATAN OP SCH (20:35)
[2016-10-08] MEDS: PERCOCET 7.5-325 PO PRN (20:35)
[2016-10-09] LABS: OCCULT BLOOD INTERNAL QC 2 INTERNAL QC VALID; OCCULT BLOOD INTERNAL QC 3 INTERNAL QC VALID; OCCULT BLOOD SAMPLE 2 NO SPECIMEN RECEIVED (NEGATIVE); OCCULT BLOOD SAMPLE 3 NO SPECIMEN RECEIVED (NEGATIVE)
[2016-10-09] MEDS: ZOSYN 4.5 GM 4.5 GM in SODIUM CHLORIDE 100 ML IV SCH ×4 (00:30→17:39)
[2016-10-09 00:33] LABS: HEMATOCRIT 24.6 % (42.0-52.0); HEMOGLOBIN 8.4 g/dl (14.0-18.0); MEAN CORPUSCULAR HEMOGLOBIN 31.5 pg (27.0-31.0); MEAN CORPUSCULAR HGB CONC 34.1 (31.8-35.4); MEAN CORPUSCULAR VOLUME 92.1 fl (80.0-94.0); PLATELET COUNT 144 10^3/uL (140-440); RED BLOOD COUNT 2.67 10^6/ul (4.70-6.10); WHITE BLOOD COUNT 8.99 K/ul (4.2-10.2)
[2016-10-09 00:49] LABS: ANISOCYTOSIS NOT PRESENT (NOT PRESENT)
[2016-10-09 01:23] LABS: ALBUMIN 2.1 g/dL (3.4-5.0); ALBUMIN/GLOBULIN RATIO 0.95; BILIRUBIN,TOTAL 0.76 mg/dL (0.00-1.20); BUN/CREATININE RATIO 23.35; CALCIUM 7.8 mg/dL (8.2-10.2); CREATININE 1.67 mg/dL (0.60-1.10); TOTAL PROTEIN 4.3 g/dL (5.8-8.1)
[2016-10-09] MEDS: ATIVAN IVP PRN ×3 (04:29→23:03)
[2016-10-09] MEDS: XOPENEX 0.63 MG NEB SCH ×4 (04:58→23:15)
[2016-10-09] MEDS: TORADOL IVP SCH ×2 (05:50→13:27)
[2016-10-09] MEDS: DEMADEX PO SCH (06:01)
[2016-10-09] MEDS: CARAFATE PO SCH ×2 (06:07→12:46)
[2016-10-09] MEDS: HUMULIN R SUBCUT PRN ×2 (06:11→11:07)
[2016-10-09] MEDS ORDERED: LASIX IVP STA ×2 (08:33→12:38)
[2016-10-09] MEDS ORDERED: DILAUDID 1 MG/ML SYRINGE IVP PRN (08:37)
[2016-10-09] MEDS ORDERED: HALDOL IM PRN (08:38)
[2016-10-09] MEDS ORDERED: DECADRON 4 MG/ML SDV 4 MG in SODIUM CHLORIDE 50 ML IV SCH (09:00)
[2016-10-09] MEDS: DECADRON 4 MG/ML SDV IVP SCH (09:06)
[2016-10-09] MEDS: PREDNISONE PO SCH (09:08)
[2016-10-09] MEDS: POTASSIUM CHLORIDE 10 MEQ VIAL-ADDITIVE ONLY 10 MEQ in SODIUM CHLORIDE 0.9%-KCL 20 MEQ ... IV SCH ×2 (09:09→16:58)
--- NOTE | 2016-10-09 09:12 | PCM.PROG ---
Attending Provider: ATTENDING PROVIDER: Dr. GUILLERMINA THORPE DATE OF SERVICE: 10/09/16 SUBJECTIVE: This 81 year old WHITE/ M was hospitalized 10/04/16. The patient is seen with Leann, Nurse Practitioner. The patient is resting and asleep during exam. Hemoglobin is up after infusion yesterday to 8.4. Kidney function is steady, potassium still low. Stool positive for occult blood yesterday. He is on IV Protonix with Carafate. The patient did eat some yesterday. He has worsening dementia. Family in the room. REVIEW OF SYSTEMS: CONSTITUTIONAL: Weakness. No night sweats. No fever or chills. HEENT: Eyes: No visual changes. No eye pain. No eye discharge. ENT: No runny nose. No epistaxis. No sinus pain. No odynophagia. No congestion. RESPIRATORY: No cough, no congestion. No hemoptysis. CARDIOVASCULAR: No angina symptoms. No CHF symptoms. No atypical chest pain for CAD. No palpitations. No shortness of breath. GASTROINTESTINAL: No abdominal pain. No nausea or vomiting. No diarrhea or constipation. No hematemesis. No hematochezia. GENITOURINARY: No urgency. No frequency. No dysuria. No hematuria. No obstructive symptoms. No discharge. No pain. No significant abnormal bleeding. MUSCULOSKELETAL: Back pain. NEUROLOGICAL: Confusion. No headache. No neck pain. No syncope. No seizures. No dizziness. PSYCHIATRIC: Restlessness. Not anxious. No depression. No suicidal thoughts. No homicidal thoughts. SKIN: Multiple skin tears. ENDOCRINE: No unexplained weight loss. No weight gain. HEMATOLOGIC/LYMPHATIC: No anemia. No purpura. No petechiae. No prolonged or excessive bleeding. No palpable lymph nodes. PHYSICAL EXAMINATION: GENERAL: The patient is lying in bed in no distress, resting quietly. VITAL SIGNS: Temperature 98.9 F, Pulse 61, Respiratory Rate 20, BP 92/0, Pulse Ox 97% HEENT: Head normocephalic, atraumatic. Eyes: Extraocular muscles are intact. Pupils are equal, round and reactive to light and accommodation. Ears: No lesions. Nose appeared normal. Throat: No exudate or erythema. NECK: Supple. No JVD, no carotid bruit. No lymphadenopathy or thyromegaly. LUNGS: Diminished breath sounds bilaterally. Clear to auscultation. Percussion note normal. Chest symmetrical. HEART: S1, S2, no S3. No murmurs. No cyanosis or clubbing. No ascites. Pulses: Dorsalis pedis and posterior tibial pulses +1 to +2 both sides. ABDOMEN: Ecchymosis along abdomen to flank. Soft. Non-tender. Bowel sounds active. No CVA tenderness. No mass felt. EXTREMITIES: Mild improvement in swelling of left arm. NEUROLOGIC: Confused. No focal deficit. No headache, no double vision or headache. SKIN: Not dry. Intact. Turgor-normal. LYMPHATIC: No palpable lymph nodes/no lymphedema. MUSCULOSKELETAL: Normal joints with no swelling. Muscle tone is normal. LAB REVIEW: 10/09/16 00:30 10/09/16 00:30 10/09/16 00:30: WBC 8.99, RBC 2.67 L, Hgb 8.4 L, Hct 24.6 L, MCV 92.1, MCH 31.5 H, MCHC 34.1, RDW Coeff of Quiana 14.9 H, Plt Count 144, Neutrophils % (Manual) 60.0, Lymphocytes % (Manual) 35.0, Monocytes % (Manual) 2.0, Eosinophils % ( Manual) 3.0, Metamyelocytes % 2.0, Nucleated RBCs 7.0 H, Anisocytosis Not present, Sodium 146 H, Potassium 3.0 L, Chloride 115 H, Carbon Dioxide 18 L, Anion Gap 16.0, BUN 39 H, Creatinine 1.67 H, Estimated GFR (MDRD) 40.00, BUN/ Creatinine Ratio 23.35, Glucose 160 H, Calcium 7.8 L, Total Bilirubin 0.76, AST 86 H, ALT 54, Alkaline Phosphatase 80, Total Protein 4.3 L, Albumin 2.1 L, Globulin 2.2, Albumin/Globulin Ratio 0.95 10/08/16 08:45: Stl Occult Blood (IFOB) Positive, Stool Occult Blood #2 No specimen received, Stool Occult Blood #3 No specimen received 10/08/16 06:05: Blood Type A POSITIVE, Antibody Screen Negative, Crossmatch (AHG ) See Detail ASSESSMENT: 1. Anemia with blood loss 2. Chronic kidney disease worsening with continuation of slow IV hydration 75 cc hr 3. Hypokalemia 4. Dementia 5. History of pneumonia 6. History of DVT 7. Worsening of dementia PLAN: 1. Continue to hold Lovenox 2. Continue IV Protonix and p.o. Carafate 3. Close monitoring 4. Will add Potassium Plan and coordination of the patient's care discussed in the presence of Tape Cutter and nurse. CONDITION: Critical PROGNOSIS: Poor. SCRIBED BY: BEULAH ELLIOTT Mathematics Faculty Member scribed while in presence of service performed by Dr. GUILLERMINA THORPE/LEANN SABILLON APRN on 10/09/16 ([id number])
--- NOTE | 2016-10-09 09:32 | PN ---
DATE OF SERVICE: 10/08/16 SUBJECTIVE: Reason for blood transfusion. The patient's hgb has dropped and likely GI bleed. Hgb is 6.3 with hct of 18.9. Even for nonclinical people he is in obvious need for couple of units of blood transfusion It would improve his mental status and maybe able to help him ambulate, eat and improve oral. Chronic kidney disease has deteriorated recently. The patient is not medical stable to undergo any GI workup. CONDITION: Stable. TIME SPENT: More than 30 minutes. Plan and coordination of the patient's care discussed in the presence of nurse. SEBLE
[2016-10-09] MEDS: K-DUR PO SCH ×3 (09:57→15:45)
[2016-10-09] MEDS: TIMOPTIC 0.5% OPTH OP SCH ×2 (09:57→20:59)
[2016-10-09] MEDS: SOMA PO SCH ×2 (09:57→12:45)
[2016-10-09] MEDS: NEURONTIN PO SCH ×2 (09:57→12:43)
[2016-10-09] MEDS: NYSTOP POWDER TP SCH ×2 (09:58→20:59)
[2016-10-09] MEDS: PROTONIX IV 40 MG in SODIUM CHLORIDE 100 ML IV SCH (09:58)
[2016-10-09] MEDS: CALMOSEPTINE OINTMENT TP SCH ×2 (10:00→20:59)
[2016-10-09] MEDS ORDERED: MORPHINE 2 MG/ML SYRINGE IVP PRN (12:38)
[2016-10-09] MEDS ORDERED: TORADOL IVP PRN (13:26)
[2016-10-09] MEDS: MORPHINE 2 MG/ML SYRINGE IVP PRN ×4 (13:41→21:00)
[2016-10-09] MEDS ORDERED: POTASSIUM CHLORIDE 10 MEQ VIAL-ADDITIVE ONLY IV ONE (16:49)
[2016-10-09] MEDS: SODIUM CHLORIDE 1,000 ML IV SCH (17:39)
[2016-10-09] MEDS: XALATAN OP SCH (21:00)
[2016-10-10] MEDS: MORPHINE 2 MG/ML SYRINGE IVP PRN ×6 (00:04→11:15)
[2016-10-10] MEDS: ZOSYN 4.5 GM 4.5 GM in SODIUM CHLORIDE 100 ML IV SCH ×3 (00:05→11:59)
[2016-10-10] MEDS: ATIVAN IVP PRN ×5 (01:11→10:11)
[2016-10-10] MEDS: XOPENEX 0.63 MG NEB SCH ×3 (04:53→11:24)
[2016-10-10 05:43] LABS: HEMATOCRIT 20.9 % (42.0-52.0); HEMOGLOBIN 7.1 g/dl (14.0-18.0); MEAN CORPUSCULAR HEMOGLOBIN 31.8 pg (27.0-31.0); MEAN CORPUSCULAR VOLUME 93.7 fl (80.0-94.0); PLATELET COUNT 176 10^3/uL (140-440); RED BLOOD COUNT 2.23 10^6/ul (4.70-6.10); WHITE BLOOD COUNT 8.97 K/ul (4.2-10.2)
[2016-10-10 06:03] LABS: ALBUMIN 2.1 g/dL (3.4-5.0); ALBUMIN/GLOBULIN RATIO 0.78; ANION GAP 18.5; BILIRUBIN,TOTAL 0.74 mg/dL (0.00-1.20); BUN/CREATININE RATIO 24.16; CALCIUM 7.9 mg/dL (8.2-10.2); CREATININE 1.49 mg/dL (0.60-1.10); POTASSIUM 3.5 mmol/L (3.5-5.1); TOTAL PROTEIN 4.8 g/dL (5.8-8.1)
[2016-10-10 06:12] LABS: ANISOCYTOSIS NOT PRESENT (NOT PRESENT)
[2016-10-10] MEDS: POTASSIUM CHLORIDE 10 MEQ VIAL-ADDITIVE ONLY 10 MEQ in SODIUM CHLORIDE 0.9%-KCL 20 MEQ ... IV SCH ×2 (07:29→11:13)
[2016-10-10] MEDS: DECADRON 4 MG/ML SDV IVP SCH (08:25)
[2016-10-10] MEDS: PROTONIX IV 40 MG in SODIUM CHLORIDE 100 ML IV SCH (08:26)
[2016-10-10] MEDS: NYSTOP POWDER TP SCH (08:26)
[2016-10-10] MEDS: CALMOSEPTINE OINTMENT TP SCH (08:27)
[2016-10-10] MEDS: TIMOPTIC 0.5% OPTH OP SCH (08:27)
--- NOTE | 2016-10-10 10:47 | PCM.PROG ---
Attending Provider: ATTENDING PROVIDER: Dr. GUILLERMINA THORPE DATE OF SERVICE: 10/10/16 SUBJECTIVE: This 81 year old WHITE/ M was hospitalized 10/04/16 with pneumonia, fever and dementia. The patient's condition slowly worsened over the past couple of days. His hemoglobin is down to 7 with hematocrit down to 20. The family members, including sisters and two daughters with son present in the room and with consent of the patient's , they have decided not to transfuse him anymore. They want no labs to be drawn and want Morphine drip to which we agree. Again, only comfort measures and the patient will be discharged to swing bed for pain management for back problems, arthritic pain and osteoarthritis. The patient was comfortable last night. REVIEW OF SYSTEMS: (The patient is resting quietly, unable to open eyes with verbal command) CONSTITUTIONAL: No night sweats. No fatigue, malaise, lethargy. No fever or chills. HEENT: Eyes: No visual changes. No eye pain. No eye discharge. ENT: No runny nose. No epistaxis. No sinus pain. No odynophagia. No congestion. RESPIRATORY: No cough, no congestion. No hemoptysis. CARDIOVASCULAR: No angina symptoms. No CHF symptoms. No atypical chest pain for CAD. No palpitations. No shortness of breath. GASTROINTESTINAL: No abdominal pain. No nausea or vomiting. No diarrhea or constipation. No hematemesis. No hematochezia. GENITOURINARY: No urgency. No frequency. No dysuria. No hematuria. No obstructive symptoms. No discharge. No pain. No significant abnormal bleeding. MUSCULOSKELETAL: No musculoskeletal pain; no joint swelling. NEUROLOGICAL: No headache. No neck pain. No syncope. No seizures. No dizziness. PSYCHIATRIC: Not anxious. No depression. No suicidal thoughts. No homicidal thoughts. SKIN: No rash. ENDOCRINE: No unexplained weight loss. No weight gain. HEMATOLOGIC/LYMPHATIC: No anemia. No purpura. No petechiae. No prolonged or excessive bleeding. No palpable lymph nodes. PHYSICAL EXAMINATION: GENERAL: The patient is resting quietly, does not open eyes to verbal command. VITAL SIGNS: Temperature 98.9 F, Pulse 105, Respiratory Rate 16, BP 96/0, Pulse Ox 98% HEENT: Head normocephalic, atraumatic. Eyes: Extraocular muscles are intact. Pupils are equal, round and reactive to light and accommodation. Ears: No lesions. Nose appeared normal. Throat: No exudate or erythema. NECK: Supple. No JVD, no carotid bruit. No lymphadenopathy or thyromegaly. LUNGS: Decreased breath sounds, clear to auscultation. Percussion note normal. Chest symmetrical. HEART: S1, S2, no S3. No murmurs. No cyanosis or clubbing. No ascites. Pulses: Dorsalis pedis and posterior tibial pulses +1 to +2 both sides. ABDOMEN: Soft. Non-tender. Bowel sounds hypoactive. No CVA tenderness. No mass felt. EXTREMITIES: Trace to +1 pitting edema bilaterally; more on the right than left. NEUROLOGIC: No focal deficit. Cranial nerves II through XII are grossly intact. No headache, no double vision or headache. SKIN: Not dry. Intact. Turgor-normal. LYMPHATIC: No palpable lymph nodes/no lymphedema. MUSCULOSKELETAL: Normal joints with no swelling. Muscle tone is normal. LAB REVIEW: 10/10/16 05:42 10/10/16 05:42 10/10/16 05:42: WBC 8.97, RBC 2.23 L, Hgb 7.1 L, Hct 20.9 L, MCV 93.7, MCH 31.8 H, MCHC 34.0, RDW Coeff of Quiana 16.3 H, Plt Count 176, Neutrophils % (Manual) 63.0, Lymphocytes % (Manual) 30.0, Monocytes % (Manual) 1.0, Eosinophils % ( Manual) 1.0, Metamyelocytes % 3.0 H, Myelocytes % 1.0, Promyelocytes % 1.0 H, Nucleated RBCs 2.0, Anisocytosis Not present, Sodium 150 H, Potassium 3.5, Chloride 121 H, Carbon Dioxide 14 L, Anion Gap 18.5, BUN 36 H, Creatinine 1.49 H , Estimated GFR (MDRD) 45.00, BUN/Creatinine Ratio 24.16, Glucose 170 H, Calcium 7.9 L, Total Bilirubin 0.74, AST 107 H, ALT 58, Alkaline Phosphatase 72 , Total Protein 4.8 L, Albumin 2.1 L, Globulin 2.7, Albumin/Globulin Ratio 0.78 ASSESSMENT: 1. Anemia with blood loss 2. Chronic kidney disease worsening with continuation of slow IV hydration 75 cc hr 3. Hypokalemia 4. Worsening dementia 4. History of pneumonia 6. History of DVT 7. Dementia 8. 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 The family in the room, wants comfort measures only. 2. Morphine drip 3. Evaluate the patient for swing bed for pain management 4. The blood loss is likely GI; unable to do any tests because of patient's condition. 5. The patient had DVT and Lovenox was stopped. 6. The patient is on Protonix, unable to take Carafate. 7. The patient's mental status has worsened and there is possibility of stroke or intracranial bleed. Plan and coordination of the patient's care discussed in the presence of Plant Specialist and nurse. CONDITION: CRITICAL PROGNOSIS: POOR SCRIBED BY: BEULAH ELLIOTT Forge Tender scribed while in presence of service performed by Dr. GUILLERMINA THORPE on 10/10/16 ([id number])
[2016-10-10] MEDS ORDERED: POTASSIUM CHLORIDE 10 MEQ VIAL-ADDITIVE ONLY IV ONE (11:09)
--- NOTE | 2016-10-10 11:16 | PN ---
DATE OF SERVICE: 10/09/16 SUBJECTIVE: The patient was seen again twice the second time was around 1:30pm. The patient' s aspirations are waxing and waning. The patient has sleep apnea and the family concerned that he has some labored breathing along with it. The patient was seen and examined with the Nurse Practitioner. PHYSICAL EXAMINATION: GENERAL: The patient is sleepy, open his eye when I called his name. VITAL SIGNS: Temperature 98, pulse 80, respiratory rate 20, blood pressure systolic 100 and pulse ox 92% on room air. HEENT: Head normocephalic, atraumatic. Eyes: Extraocular muscles are intact. Pupils are equal, round and reactive to light and accommodation. Ears: No lesions. Nose appeared normal. Throat: No exudate or erythema. NECK: Supple. No JVD, no carotid bruit. No lymphadenopathy or thyromegaly. LUNGS: Decreased breaths sounds with mild wheeze and no crepitations. Percussion note normal. Chest symmetrical. HEART: S1, S2, no S3. No murmurs. No cyanosis or clubbing. No ascites. Pulses: Dorsalis pedis and posterior tibial pulses +1 to +2 both sides. ABDOMEN: Soft. Nontender. Bowel sounds active. No CVA tenderness. No mass felt. Good urine output noted in the bag. EXTREMITIES: No edema. Full range of motion of all extremities, equal. NEUROLOGIC: No focal deficit. Cranial nerves II through XII are grossly intact. No headache, no double vision or headache. SKIN: Not dry. Intact. Turgor - normal. LYMPHATIC: No palpable lymph nodes/no lymphedema. MUSCULOSKELETAL: Normal joints with no swelling. Muscle tone is normal. LABS: Hgb 8.4, hct 24, WBC 8,900 normal differential, creatine 1.6, BUN 39 same as yesterday. Hypokalemia noted. PLAN: 1. The patient again is given IV Lasix 20mg 2. Morphine Sulfate will given 1mg Q 2-3 hourly 3. Will discontinue Dilaudid 4. Toradol will be PRN 5. The patient is off practically all oral medications 6. 1mg IV Decadron was given CONDITION: Critical TIME SPENT: More than an hour- Extensive Plan and coordination of the patient's care discussed in the presence of nurse. SEBLE
[2016-10-10 11:34] VITALS: BP 100/78; TEMP 98.4
--- NOTE | 2016-10-11 11:01 | DS ---
DATE OF SERVICE: 10/10/16 DISCHARGED TO SWING BED FINAL DIAGNOSIS: 1. Severe dementia with obtundation multifactorial 2. Pneumonia 3. 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 Severe anemia, likely GI bleed 5. DVT right lower extremity 6. Chronic kidney disease 7. History of hypertension 8. Diabetes Mellitus 9. Chronic lung disease DISCHARGE INSTRUCTIONS: Discharge to swing bed. The patient is taken off of Bystolic Valsartan and all the antihypertensive medicine including Hydralazine. The patient has been of Lovenox because of Anemia and GI bleed. The patient will be continued on Dexamethasone 4mg IV daily. MEDICATIONS AT DISCHARGE: Morphine drip now at 3mg per minute Dexamethasone 4mg IV daily Toradol 30mg Q 8 IV Ativan 1mg Q 4 hours PRN for anxiety and restlessness Pantoprazole 40mg daily DIET: Unable to take oral nutrition at this time ACTIVITY: Bed rest. Turn as tolerated SMOKING: Former smoker DISEASE SPECIFIC EDUCATION: Discussed with family swing bed admission for IV pain control. LABS: Hgb 7.1, hct 20.9, WBC 8,900 normal differential, creatinine 1.4, BUN 36, potassium 3.5. HOSPITAL COURSE: The patient is an 81 year old white male hospitalized with fever and possibility of pneumonia and had DVT. The patient was given Lovenox daily along with piperacillin and Vancomycin with possibility of halfway acquired possibly aspiration pneumonitis. The patient's condition initially seemed to have improved but later on deteriorated. The patient required more and more medications for agitation he had from his dementia. The dementia was made worse very likely from the use of medications which required the control of his pain. He was having a lot of pain even on any side to side movement because of his severe DJD of the spine with cord compression for which he was evaluated at [facility] by couple of Neurosurgeons and they elected not to treat him with surgical intervention because of his overall medical status. The patient has been halfway where he developed fever and now being treated in the hospital. He has confusion has continued to deteriorate. The patient wants DNR and conservative measure, comfort measure. Today they also declined to have blood transfusion. IV fluids will be continued for hydration. IV medications will be continued. The patient is going to be in the swing bed for pain management, IV antibiotics will be discontinued also. CONDITION: Stable but critical. Family members with , daughters and the son quite satisfied with the patient's care and they constant input on the day to day care. TIME SPENT: More than 60 minutes. SEBLE
== END 2016-10-10 12:00 | disposition swing bed (61) | DRG 884 ==
LOC: ED 09:28 → SCU 14:09
PROVIDERS: ADMIT Internal Medicine; ATTEND Internal Medicine
PROC: 30233N1 Transfusion of Nonautologous Red Blood Cells into Peripheral Vein, Percutaneous Approach (ICD-10-PCS; principal; 2016-10-08)
PROC: 30233N1 Transfusion of Nonautologous Red Blood Cells into Peripheral Vein, Percutaneous Approach (ICD-10-PCS; 2016-10-08)
DX: F03.90 Unspecified dementia, unspecified severity, without behavioral disturbance, psychotic disturbance, mood disturbance, and anxiety (principal); J18.9 Pneumonia, unspecified organism; J96.90 Respiratory failure, unspecified, unspecified whether with hypoxia or hypercapnia; K92.2 Gastrointestinal hemorrhage, unspecified; I82.401 Acute embolism and thrombosis of unspecified deep veins of right lower extremity; D64.9 Anemia, unspecified; E11.22 Type 2 diabetes mellitus with diabetic chronic kidney disease; N18.9 Chronic kidney disease, unspecified; J44.9 Chronic obstructive pulmonary disease, unspecified; M47.20 Other spondylosis with radiculopathy, site unspecified; L89.629 Pressure ulcer of left heel, unspecified stage; Y95 Nosocomial condition; M48.00 Spinal stenosis, site unspecified; R19.7 Diarrhea, unspecified; R50.9 Fever, unspecified; R41.82 Altered mental status, unspecified; A41.9 Sepsis, unspecified organism; Z87.891 Personal history of nicotine dependence; Z79.899 Other long term (current) drug therapy
CPT/HCPCS: 36415; 36430; 80053; 80202; 81001; 82272; 82550; 82553; 82803; 82962; 83605; 84145; 84484; 85007; 85014; 85018; 85025; 85379; 85651; 86850; 86900; 86922; 87040; 87070; 87081; 87493; 93005; 93010; 94640; 96361; 96365; 99223; 99231; 99284; 99306

== ENCOUNTER 2016-10-10 11:56 | Inpatient (IN) ==
[2016-10-10] MEDS ORDERED: POTASSIUM CHLORIDE 10 MEQ VIAL-ADDITIVE ONLY 10 MEQ in SODIUM CHLORIDE 0.9%-KCL 20 MEQ ... IV SCH (12:30)
[2016-10-10] MEDS: ATIVAN IVP PRN ×3 (13:06→19:34)
[2016-10-10] MEDS: [UNRECOGNIZED DRUG - MIXTURE] IV SCH (13:51)
[2016-10-10] MEDS: MORPHINE IV SCH (13:51)
[2016-10-10] MEDS: SODIUM CHLORIDE IV SCH (13:51)
--- NOTE | 2016-10-10 14:50 | ED.PDOC ---
Procedures - IV/Art Line Insertion Location: Rt ant lower leg Type of Line: Peripheral IV Invasive Line/IV Catheter Gauge: 24 Number of Attempts: 1 Blood Return Positive: Yes Invasive Line/IV Flushes Without Difficulty: Yes Conscious Sedation - Pre-op Assessment Weight: 198 lb - Medical History Past Medical History: Hypertension, Diabetes, High Lipids, Kidney Disease, Anxiety, Arthritis Other History: dementia, barretts esophagus
--- NOTE | 2016-10-10 14:51 | ED.PDOC ---
Procedures - IV/Art Line Insertion Location: Lt anterior lower leg Type of Line: Peripheral IV Invasive Line/IV Catheter Gauge: 24 Number of Attempts: 1 Blood Return Positive: Yes Invasive Line/IV Flushes Without Difficulty: Yes Conscious Sedation - Pre-op Assessment Weight: 198 lb - Medical History Past Medical History: Hypertension, Diabetes, High Lipids, Kidney Disease, Anxiety, Arthritis Other History: dementia, barretts esophagus
[2016-10-10] MEDS ORDERED: TORADOL IVP PRN (19:43)
[2016-10-11] MEDS: [UNRECOGNIZED DRUG - MIXTURE] IV SCH (01:54)
[2016-10-11] MEDS ORDERED: MORPHINE 10 MG/ML SYRINGE ONE (06:19)
[2016-10-11] MEDS: MORPHINE IV SCH ×2 (06:32→19:41)
[2016-10-11] MEDS: SODIUM CHLORIDE IV SCH ×2 (06:32→19:41)
[2016-10-11] MEDS ORDERED: [UNRECOGNIZED DRUG - MIXTURE] IV SCH (08:45)
--- NOTE | 2016-10-11 09:41 | PCM.PROG ---
Attending Provider: ATTENDING PROVIDER: Dr. GUILLERMINA THORPE DATE OF SERVICE: 10/11/16 SUBJECTIVE: This 81 year old WHITE/ M was hospitalized 10/10/16. The patient is seen with Leann, Nurse Practitioner. The patient is resting well. He is starting to have short periods of apnea less than 20 seconds. Comfort measures with family requesting no more labs. Daughter Heidi is in the room. REVIEW OF SYSTEMS: (The patient is responsive to painful stimuli only - is not alert) CONSTITUTIONAL: Lethargy. No night sweats. . No fever or chills. HEENT: Eyes: No visual changes. No eye pain. No eye discharge. ENT: No runny nose. No epistaxis. No sinus pain. No odynophagia. No congestion. RESPIRATORY: No cough, no congestion. No hemoptysis. CARDIOVASCULAR: No angina symptoms. No CHF symptoms. No atypical chest pain for CAD. No palpitations. No shortness of breath. GASTROINTESTINAL: No abdominal pain. No nausea or vomiting. No diarrhea or constipation. No hematemesis. No hematochezia. GENITOURINARY: No urgency. No frequency. No dysuria. No hematuria. No obstructive symptoms. No discharge. No pain. No significant abnormal bleeding. MUSCULOSKELETAL: No musculoskeletal pain; no joint swelling. NEUROLOGICAL: The patient is not responsive - responsive to painful stimuli only. Not alert, not oriented. No headache. No neck pain. No syncope. No seizures. No dizziness. PSYCHIATRIC: Not anxious. No depression. No suicidal thoughts. No homicidal thoughts. SKIN: Multiple bruising and skin tears present on upper extremities. ENDOCRINE: No unexplained weight loss. No weight gain. HEMATOLOGIC/LYMPHATIC: No palpable lymph nodes. PHYSICAL EXAMINATION: GENERAL: The patient is lying in bed, does not respond to painful stimuli. VITAL SIGNS: Temperature 98.4 F, Pulse 96, Respiratory Rate 12, BP , Pulse Ox 94% HEENT: Head normocephalic, atraumatic. Eyes: Extraocular muscles are intact. Pupils are equal, round and reactive to light and accommodation. Ears: No lesions. Nose appeared normal. Throat: No exudate or erythema. NECK: Supple. No JVD, no carotid bruit. No lymphadenopathy or thyromegaly. LUNGS: Diminished breath sounds bilaterally. Clear to auscultation. Percussion note normal. Chest symmetrical. HEART: S1, S2, no S3. No murmurs. No cyanosis or clubbing. No ascites. Pulses: Dorsalis pedis and posterior tibial pulses +1 to +2 both sides. ABDOMEN: Abdomen is mildly distended with ecchymosis of the abdomen. Bowel sounds hypoactive. No CVA tenderness. No mass felt. EXTREMITIES: +2 edema right lower extremity, edema thighs and buttocks. NEUROLOGIC: The patient is responsive to painful stimuli only. He is not alert and is not oriented. SKIN: Multiple skin tears and bruising upper extremities. LYMPHATIC: No palpable lymph nodes/no lymphedema. MUSCULOSKELETAL: Normal joints with no swelling. Muscle tone is normal. ASSESSMENT: 1. Unresponsive status with metabolic encephalopathy. 2. Fever, etiology could be sepsis. 3. Anemia with blood loss. 4. Chronic kidney disease worsening with continuation of slow IV hydration decreased to 40 mm/hr. 5. Hypokalemia. 6. Dementia, worsening. 7. History of pneumonia. 8. History of DVT, untreated at present time. 9. GI bleed with extremely low hemoglobin. 10. History of hypertension. PLAN: 1. Continue with comfort measures. 2. Decrease IV fluids down to 40 mm/hr. CONDITION: Stable PROGNOSIS: Critical Plan and coordination of the patient's care discussed in the presence of Service Dismantler and nurse. SCRIBED BY: BEULAH ELLIOTT Medicare Coordinator scribed while in presence of service performed by Dr. GUILLERMINA THORPE/LEANN SABILLON APRN on 10/11/16 ([id number])
[2016-10-11] MEDS: ATIVAN IVP PRN ×4 (09:45→22:29)
[2016-10-11] MEDS: DECADRON 4 MG/ML SDV IVP SCH (09:50)
[2016-10-11] MEDS: PROTONIX IV 40 MG in SODIUM CHLORIDE 100 ML IV SCH (09:51)
[2016-10-11 18:08] VITALS: BP 108/70
[2016-10-12] MEDS: ATIVAN IVP PRN ×9 (00:50→22:53)
[2016-10-12 06:01] VITALS: TEMP 98.9
[2016-10-12] MEDS ORDERED: MORPHINE 10 MG/ML SYRINGE ONE (06:10)
[2016-10-12] MEDS: SODIUM CHLORIDE IV SCH ×2 (06:18→15:22)
[2016-10-12] MEDS: MORPHINE IV SCH ×2 (06:18→15:22)
[2016-10-12] MEDS: [UNRECOGNIZED DRUG - MIXTURE] IV SCH (08:20)
[2016-10-12] MEDS: PROTONIX IV 40 MG in SODIUM CHLORIDE 100 ML IV SCH (09:35)
[2016-10-12] MEDS: DECADRON 4 MG/ML SDV IVP SCH (09:35)
--- NOTE | 2016-10-12 09:35 | PCM.PROG ---
Attending Provider: ATTENDING PROVIDER: Dr. GUILLERMINA THORPE DATE OF SERVICE: 10/12/16 - seen by Dr. Finch in Dr. Thorpe's absence SUBJECTIVE: This 81 year old WHITE/ M was hospitalized 10/10/16. The patient is in swing bed. As per the family request Morphine increased to 6 mg/hr as he was having moaning episodes with pain and discomfort. The patient's family, son, daughter Heidi and , all three are present in the room; their questions answered. The patient's is the POA; all want comfort measures only. They desire that the patient be as comfortable and pain free as possible and are aware of the poor prognosis of the patient. REVIEW OF SYSTEMS: (The patient does not respond to verbal or painful stimuli) CONSTITUTIONAL: No night sweats. No fatigue, malaise, lethargy. No fever or chills. HEENT: Eyes: No visual changes. No eye pain. No eye discharge. ENT: No runny nose. No epistaxis. No sinus pain. No odynophagia. No congestion. RESPIRATORY: No cough, no congestion. No hemoptysis. CARDIOVASCULAR: No angina symptoms. No CHF symptoms. No atypical chest pain for CAD. No palpitations. Labored breathing. GASTROINTESTINAL: No abdominal pain. No nausea or vomiting. No diarrhea or constipation. No hematemesis. No hematochezia. GENITOURINARY: No urgency. No frequency. No dysuria. No hematuria. No obstructive symptoms. No discharge. No pain. No significant abnormal bleeding. MUSCULOSKELETAL: No musculoskeletal pain; no joint swelling. NEUROLOGICAL: No headache. No neck pain. No syncope. No seizures. No dizziness. PSYCHIATRIC: Not anxious. No depression. No suicidal thoughts. No homicidal thoughts. SKIN: Skin tears present as well as bruising. ENDOCRINE: No unexplained weight loss. No weight gain. HEMATOLOGIC/LYMPHATIC: No palpable lymph nodes. PHYSICAL EXAMINATION: GENERAL: The patient is lying in bed and not in any distress, does not respond verbally or to painful stimuli. Breathing is labored. VITAL SIGNS: Temperature 98.9 F, Pulse 96, Respiratory Rate 10, BP 108/70, Pulse Ox 93% HEENT: Head normocephalic, atraumatic. Eyes: Extraocular muscles are intact. Pupils are equal, round and reactive to light and accommodation. Ears: No lesions. Nose appeared normal. Throat: No exudate or erythema. NECK: Supple. No JVD, no carotid bruit. No lymphadenopathy or thyromegaly. LUNGS: Decreased breath sounds. Clear to auscultation. Percussion note normal. Chest symmetrical. HEART: S1, S2, no S3. No murmurs. Sinus tachy rhythm. No cyanosis or clubbing. No ascites. Pulses: Dorsalis pedis and posterior tibial pulses +1 to +2 both sides. ABDOMEN: Mildly distended abdomen. Hypoactive bowel sounds. No CVA tenderness. No mass felt. EXTREMITIES: Left upper extremity is swollen. NEUROLOGIC: The patient does not respond to verbal or painful stimuli. SKIN: Multiple skin tears and bruising of the upper extremities. LYMPHATIC: No palpable lymph nodes/no lymphedema. MUSCULOSKELETAL: Normal joints with no swelling. Muscle tone is normal. ASSESSMENT: 1. Unresponsive status with metabolic encephalopathy. 2. Anemia with blood loss. 3. Chronic kidney disease worsening with continuation of slow IV hydration decreased to 40 mm/hr. 4. Hypokalemia. 5. Dementia, worsening. 6. History of pneumonia. 7. History of DVT, untreated at present time. 8. GI bleed with extremely low hemoglobin. 9. History of hypertension. PLAN: 1. Continue Morphine 6 mg/hr 2. Ativan 2 mg q.4 to 6 hr p.r.n. Poor prognosis discussed with family and they are aware. Plan and coordination of the patient's care discussed in the presence of Academic Department Chair and nurse. CONDITION: Critical SCRIBED BY: BEULAH ELLIOTT, Fire Engine Pump Operator scribed while in presence of service performed by Dr. Husam Finch on 10/12/16 ([id number])
--- NOTE | 2016-10-12 13:56 | HP ---
DATE OF SERVICE: 10/10/16 - SWING BED HISTORY OF PRESENT ILLNESS: This is an 81-year-old male who had been [facility] for respiratory failure, bilateral pneumonia, DVT of the right leg. He subsequently has chronic kidney disease which has steadily declined. He was placed on Lovenox for the right DVT and then developed acute GI bleed with a positive occult stool. He is now anemic with hemoglobin lowest at 6.5. He was transfused two days ago with improvement in his hemoglobin and then again was down to 7. He has a nursing home history of hypertension, coronary artery disease. Also on this admission he has acute dementia with worsening behavior disturbances. 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 He has a decubitus ulcer on his left heel. The patient has been on IV fluids at 75 cc/hr. In order to control his pain he has been put on a scheduled Morphine at 3 mg an hour. His blood pressure has been low and he has been taken off his blood pressure medicine. He does have a history of hypokalemia during this hospital stay and he is getting potassium in his IV fluids. PAST MEDICAL/SURGICAL HISTORY: 1. Chronic kidney disease 2. Hypertension 3. Dementia 4. Degenerative joint disease 5. Diabetes mellitus type 2 6. Osteoarthritis 7. Coronary artery disease 8. History of colon polyps 9. Colonoscopy with Dr. Sal SOCIAL HISTORY: He had been living at home and then was put in [facility] this past month which is where he was admitted from. REVIEW OF SYSTEMS: CONSTITUTIONAL: Lethargy, weakness, confusion. No night sweats. No fever or chills. HEENT: Eyes: No visual changes. No eye pain. No eye discharge. ENT: No runny nose. No epistaxis. No sinus pain. No sore throat. No odynophagia. No ear pain. No congestion. RESPIRATORY: Mild shortness of breath. Coughing has resolved. CARDIOVASCULAR: No angina symptoms. No CHF symptoms. No atypical chest pain for CAD. No palpitations. Mild shortness of breath. No orthopnea. GASTROINTESTINAL: Stool positive for occult blood, diarrhea. GENITOURINARY: No hematuria. The patient has Castellanos catheter. MUSCULOSKELETAL: Swelling of the right leg due to DVT, generalized swelling of extremities. No redness of joints. SKIN: Multiple skin tears on the upper extremities. Ecchymosis across his abdomen. NEUROLOGICAL: The patient is only responsive to pain stimuli. He has history of dementia and is confused. MEDICATIONS: 1. Decadron 4 mg IV daily 2. Morphine 3 mg/hr 3. Protonix 40 mg daily 4. IV fluids with 20 mEq of potassium decreased to 40 mL/hr 5. Toradol 30 mg IV q.8hr 6. Ativan 1 mg IV q.2hr p.r.n. ALLERGIES: AMLODIPINE, CLONIDINE, VASOTEC, ERYTHROMYCIN PHYSICAL EXAMINATION: APPEARANCE: The patient is in no acute distress. He appears to be resting comfortably. Again he is only responsive to pain stimuli, is not talking. HEENT: Unremarkable. Pupils are equal, round, reactive to light and accomodation. NECK: Supple. No JVD, no carotid bruit. No lymphadenopathy or thyromegaly. LUNGS: Bilaterally significantly decreased breath sounds. Clear to auscultation. Percussion note normal. Chest symmetrical. HEART: Regular rate and rhythm with no murmurs, clicks or rubs. No cyanosis or clubbing. No ascites. Pulses: Dorsalis pedis and posterior tibial pulses +1 to +2 both sides. ABDOMEN: Somewhat distended with abdominal wall edema. He has ecchymosis across his abdomen. MUSCULOSKELETAL: The patient has swelling of left arm. He has swelling of the right lower extremity. SKIN: He has multiple skin tears and bruising on the upper extremities. Decubitus ulcer left heel. Edema noted to upper legs, right lower extremity. NEUROLOGIC: The patient is unresponsive. LABS: The patient declined any more labs as of 10/10/16 due to distress on the patient and inability to get blood. We are no longer doing blood pressure due to severe edema of his arms. Temperature on 10/10 was 99.6, heart rate 92, respirations 20 , pulse ox 94%. As of today, he has only had 376 cc of output. ASSESSMENT: 1. CHRONIC KIDNEY DISEASE WHICH IS STEADILY WORSENING 2. ANEMIA DUE TO BLOOD LOSS 3. GI BLEED WITH POSITIVE OCCULT STOOL 4. HYPERTENSION 5. DEMENTIA WITH BEHAVIOR DISTURBANCES 6. HISTORY OF BILATERAL PNEUMONIA 7. HISTORY OF RIGHT DVT, UNABLE TO DO LOVENOX THERAPY DUE TO GI BLEED 8. DEGENERATIVE JOINT DISEASE OF THE SPINE 9. DYSLIPIDEMIA PLAN: 1. The patient's family has agreed to comfort measures only. 2. Will continue with IV Morphine and IV Toradol in order for him to rest comfortably. 3. Will continue with Protonix due to GI bleed. 4. Will no longer do labs. 5. Continue IV fluids as needed. The patient is no longer eating. We will monitor him closely. PROGNOSIS: Poor CONDITION: Critical TIME SPENT: More than 70 minutes. MTDD
[2016-10-13] MEDS: MORPHINE IV SCH ×5 (00:34→19:35)
[2016-10-13] MEDS: SODIUM CHLORIDE IV SCH ×5 (00:34→19:35)
[2016-10-13] MEDS: ATIVAN IVP PRN ×10 (01:23→23:32)
[2016-10-13] MEDS: DEXTROSE 5%-WATER IV SOLN 1,000 ML IV SCH (05:01)
[2016-10-13] MEDS: DECADRON 4 MG/ML SDV IVP SCH (08:26)
[2016-10-13] MEDS: PROTONIX IV 40 MG in SODIUM CHLORIDE 100 ML IV SCH (08:26)
[2016-10-13] MEDS: [UNRECOGNIZED DRUG - MIXTURE] IV SCH (11:15)
[2016-10-13] MEDS ORDERED: TRANSDERM-SCOP 1.5 MG PATCH TD PRN (13:27)
[2016-10-13] MEDS ORDERED: MORPHINE 2 MG/ML SYRINGE ONE ×2 (17:35→19:10)
[2016-10-13] MEDS ORDERED: MORPHINE 4 MG/ML SYRINGE ONE ×2 (17:35→19:10)
[2016-10-14] MEDS: ATIVAN IVP PRN ×11 (01:32→23:44)
[2016-10-14] MEDS ORDERED: MORPHINE 10 MG/ML SYRINGE ONE (02:26)
[2016-10-14] MEDS ORDERED: DEXTROSE 5%-WATER IV SOLN 500 ML IV SCH (03:30)
[2016-10-14] MEDS: DECADRON 4 MG/ML SDV IVP SCH (09:24)
[2016-10-14] MEDS: PROTONIX IV 40 MG in SODIUM CHLORIDE 100 ML IV SCH (09:27)
[2016-10-14] MEDS: SODIUM CHLORIDE IV SCH ×2 (11:58→20:47)
[2016-10-14] MEDS: MORPHINE IV SCH ×2 (11:58→20:47)
[2016-10-14] MEDS: DEXTROSE 5%-WATER IV SOLN 1,000 ML IV SCH (20:29)
[2016-10-15] MEDS: ATIVAN IVP PRN ×10 (01:46→23:38)
[2016-10-15] MEDS ORDERED: MORPHINE 10 MG/ML SYRINGE ONE (06:45)
[2016-10-15] MEDS: MORPHINE IV SCH ×2 (07:02→22:24)
[2016-10-15] MEDS: SODIUM CHLORIDE IV SCH ×2 (07:02→22:24)
--- NOTE | 2016-10-15 09:52 | PCM.PROG ---
Attending Provider: ATTENDING PROVIDER: Dr. GUILLERMINA THORPE DATE OF SERVICE: 10/15/16 SUBJECTIVE: This 81 year old WHITE/ M was hospitalized 10/10/16. The patient is on Morphine drip 6 mg/hour and Ativan. The patient is resting well. He has waxing and waning of respirations with sleep apnea. He is obtunded, likely metabolic encephalopathy and/or stroke. The pupils are smaller and not reacting to light. REVIEW OF SYSTEMS: (The patient does not respond to verbal or painful stimuli) CONSTITUTIONAL: No night sweats. No fatigue, malaise, lethargy. No fever or chills. HEENT: Eyes: Pupils are small. ENT: No runny nose. No epistaxis. No sinus pain. No odynophagia. No congestion. RESPIRATORY: No cough, no congestion. No hemoptysis. CARDIOVASCULAR: No angina symptoms. No CHF symptoms. No atypical chest pain for CAD. No palpitations. Waxing and waning of respirations. GASTROINTESTINAL: No abdominal pain. No nausea or vomiting. No diarrhea or constipation. No hematemesis. No hematochezia. GENITOURINARY: Castellanos in place. MUSCULOSKELETAL: Some muscle tone. NEUROLOGICAL: Not responsive to verbal or painful stimuli. PSYCHIATRIC: Not anxious. No depression. No suicidal thoughts. No homicidal thoughts. SKIN: Bruising as noted below. ENDOCRINE: No unexplained weight loss. No weight gain. HEMATOLOGIC/LYMPHATIC: No palpable lymph nodes. PHYSICAL EXAMINATION: GENERAL: The patient in bed in no distress, resting well. VITAL SIGNS: Temperature 98.9 F, Pulse 93, Respiratory Rate 12, BP 108/70, Pulse Ox 94% HEENT: Head normocephalic, atraumatic. Eyes: Pupils are small; not reactive to light. Ears: No lesions. Nose appeared normal. Throat: No exudate or erythema. NECK: Supple. No JVD, no carotid bruit. No lymphadenopathy or thyromegaly. LUNGS: Decreased breath sounds with harsh breath sounds. HEART: S1, S2, irregular. No cyanosis or clubbing. No ascites. Pulses: Dorsalis pedis and posterior tibial pulses +1 to +2 both sides. ABDOMEN: Soft. Non-tender. Bowel sounds active. No CVA tenderness. No mass felt. EXTREMITIES: Tissue edema noted. Babinski scratch - no response. Extremities are flaccid with some muscular tone. NEUROLOGIC: Does not respond to verbal or painful stimuli. SKIN: Bruising of abdominal area and periumbilical area, scrotal area is swollen with bruising. LYMPHATIC: No palpable lymph nodes. MUSCULOSKELETAL: Some muscular tone noted. ASSESSMENT: 1. Unresponsive status with metabolic encephalopathy. poss of stroke 2. Anemia with blood loss. 3. Chronic kidney disease 4. Hypokalemia. 5. Dementia, worsening. 6. History of pneumonia. 7. History of DVT, untreated at present time. with likely gi bleed and/or subcutaneous bleed 8. GI bleed with extremely low hemoglobin. 9. History of hypertension. PLAN: 1. Stop Protonix 2. Stop Decadron 3. Labs are not being done at family's request. The patient is on comfort measures with IV Morphine, Ativan and Scopalomine patch. Plan and coordination of the patient's care discussed in the presence of Eviscerator and nurse. CONDITION: Stable but critical. PROGNOSIS: Poor. SCRIBED BY: BEULAH ELLIOTT [employer] scribed while in presence of service performed by Dr. GUILLERMINA THORPE on 10/15/16 (0800)
[2016-10-15] MEDS ORDERED: ISOPTO ATROPINE SL PRN (13:14)
[2016-10-15] MEDS: ISOPTO ATROPINE SL PRN ×5 (13:49→23:38)
[2016-10-15] MEDS ORDERED: TRANSDERM-SCOP 1.5 MG PATCH TD SCH (17:30)
[2016-10-16] MEDS: ISOPTO ATROPINE SL PRN ×2 (02:12→04:22)
[2016-10-16] MEDS: ATIVAN IVP PRN ×2 (02:12→04:22)
[2016-10-16] MEDS ORDERED: MORPHINE 10 MG/ML SYRINGE ONE (04:11)
[2016-10-16] MEDS: DEXTROSE 5%-WATER IV SOLN 1,000 ML IV SCH (04:22)
[2016-10-16] MEDS: SODIUM CHLORIDE IV SCH (04:23)
[2016-10-16] MEDS: MORPHINE IV SCH (04:23)
--- NOTE | 2016-10-17 11:24 | PN ---
DATE OF SERVICE: 10/16/16- Note SUBJECTIVE: The patient is an 81 year old white male originally hospitalized with fever and possibility of pneumonia. The patient's condition during the stay in the hospital has continuously deteriorated. The patient is more or less obtunded with possibility of stroke versus metabolic encephalopathy. The patient has been unresponsive for past 4-5 days and he has been on continuous Morphine drip likely pain sources cord compression with severe DJD of the spine which was inoperable because of the patient's medical conditions. The patient has also developed dementia likely Alzheimer's which has deteriorated with a lot of pain and also because of pain medications. PHYSICAL EXAMINATION: GENERAL: The patient is moaning, not responding to the painful stimulus. VITAL SIGNS: Temperature 99.5 to 100.5 HEENT: Head normocephalic, atraumatic. Eyes: Extraocular muscles are intact. Pupils are more or less pinpoint. Ears: No lesions. Nose appeared normal. Throat: No exudate or erythema. NECK: Stiffness unable to determine. No JVD, no carotid bruit. No lymphadenopathy or thyromegaly. LUNGS: The patient has gasping respirations this morning the patient was seen this morning around 2am when I happened to be in the hospital seeing another patient. The patient's rhythm had changed to atrial flutter with rate of 130 to 140 per minutes. His respirations were becoming shallow. Clear to auscultation. Percussion note normal. Chest symmetrical. HEART: S1, S2, no S3. No murmurs. No cyanosis or clubbing. No ascites. Pulses: Dorsalis pedis and posterior tibial pulses +1 to +2 both sides. ABDOMEN: Soft. Nontender. Bowel sounds active. No CVA tenderness. No mass felt. EXTREMITIES: No edema. Doesn't have any Babinski reflex, deep tendon reflex is all absent for past two days. NEUROLOGIC: No focal deficit. Cranial nerves II through XII are grossly intact. No headache, no double vision or headache. SKIN: Not dry. Intact. Turgor - normal. LYMPHATIC: No palpable lymph nodes/no lymphedema. MUSCULOSKELETAL: Normal joints with no swelling. Muscle tone is normal. Morphine drip was increased to 8mg per hours. Intermittent Ativan was given.The patient was on Scopolamine patches every 72 hourly two to three of them with AtroPen to be given for secretions.The patient family didn't want any suctioning. The patient's condition has continued to deteriorate with the more shallow breathing, gasping type and he approximately about 5:10 or 5:15am. CAUSE OF : 1. Aspiration pneumonitis 2. Dementia 3. Possibility of stroke 4. Metabolic encephalopathy 5. Alzheimer's dementia 6. Pneumonia 7. Cord compression at lumbar level with severe DJD inoperable because of patient's overall medical status. The patient was evaluated at [facility] The patient on 10/16/16. TIME SPENT: More than 30 minutes. Plan and coordination of the patient's care discussed in the presence of nurse. SEBLE
== END 2016-10-16 07:30 | disposition expired | DRG 177 ==
LOC: SCU 11:56
PROVIDERS: ADMIT Internal Medicine; ATTEND Internal Medicine
DX: J69.0 Pneumonitis due to inhalation of food and vomit (principal); J96.90 Respiratory failure, unspecified, unspecified whether with hypoxia or hypercapnia; I63.9 Cerebral infarction, unspecified; G93.41 Metabolic encephalopathy; K92.2 Gastrointestinal hemorrhage, unspecified; G95.20 Unspecified cord compression; R50.9 Fever, unspecified; R60.1 Generalized edema; D64.9 Anemia, unspecified; I12.9 Hypertensive chronic kidney disease with stage 1 through stage 4 chronic kidney disease, or unspecified chronic kidney disease; N18.9 Chronic kidney disease, unspecified; E87.6 Hypokalemia; G30.1 Alzheimer's disease with late onset; F02.80 Dementia in other diseases classified elsewhere, unspecified severity, without behavioral disturbance, psychotic disturbance, mood disturbance, and anxiety; L89.629 Pressure ulcer of left heel, unspecified stage; E11.9 Type 2 diabetes mellitus without complications; M47.9 Spondylosis, unspecified; Z79.899 Other long term (current) drug therapy
CPT/HCPCS: 97802; 99306; 99309; 99316